=== PATIENT | male | born 1980 | race Caucasian/White ===

== ENCOUNTER 2016-11-21 06:45 | Inpatient (IN) | payer SELFPAY ==
[2016-11-21] VITALS (7 sets, daily range): BP systolic 123–152; BP diastolic 67–89; PULSE 82–112; RESP 18–20; TEMP 98.9–99.4; O2SAT 95–98
[2016-11-21] MEDS ORDERED: SODIUM CHLOR 0.9% 1000 ML INJ 1,000 ML IV SCH (07:16)
--- NOTE | 2016-11-21 07:23 | PD ---
HPI Chief Complaint: GI Complaint Time Seen by Provider: 07:07 Travel History International Travel<30 days: No Contact w/Intl Traveler<30days: No Traveled to known affect area: No History of Present Illness HPI The patient is a 36-year-old male who presents to the emergency department for nausea and vomiting. The patient notes a one and a half year history of persistent nausea and vomiting upon waking in the morning with mild dizziness. The patient states he was sitting upright and the nausea and vomiting will resolve. The patient has been advised in the past undergo endoscopy, however, he states he does not have insurance was unable to have the endoscopy performed. The patient states over the last 3-4 days of nausea and vomiting after persistent throughout the day. He does complain of mild abdominal pain, "like doing sit ups ", secondary to persistent vomiting. He denies any previous abdominal surgeries. He denies any coming chest pain, shortness of breath, or diarrhea. He does note decreased oral intake secondary to the persistent nausea and vomiting. The patient works as a salesman. He does take Nexium on a daily basis. He does admit to drinking alcohol daily, approximately 2 drinks, last drink was last night. [facility] Past Medical History Narrative Medical GERD Past Surgical History Narrative Surgical Tonsillectomy and adenoidectomy, tubes in the ears Social History Alcohol Use: Yes Tobacco Use: No Allergies-Medications (Allergen,Severity, Reaction): Coded Allergies: No Known Allergies (Unverified , 11/21/16) Review of Systems Except as stated in HPI: all other systems reviewed are Neg General / Constitutional: No: Fever Cardiovascular: No: Chest Pain or Discomfort Respiratory: No: Shortness of Breath Gastrointestinal: Positive: Nausea, Vomiting, Abdominal Pain, Loss of Appetite , No: Diarrhea Musculoskeletal: No: Myalgias Physical Exam Narrative GENERAL: Awake, alert, 36-year-old male who appears his stated age and is in no acute respiratory distress. SKIN: Focused skin assessment warm/dry. HEAD: Atraumatic. Normocephalic. EYES: Pupils equal and round. No scleral icterus. No injection or drainage. ENT: No nasal bleeding or discharge. Slightly dry mucous membranes. NECK: Trachea midline. No JVD. CARDIOVASCULAR: Regular, tachycardic with a heart rate of 110. RESPIRATORY: No accessory muscle use. Clear to auscultation. Breath sounds equal bilaterally. GASTROINTESTINAL: Abdomen soft, non-tender, nondistended. No guarding or rigidity. MUSCULOSKELETAL: No obvious deformities. No clubbing. No cyanosis. No edema. NEUROLOGICAL: Awake and alert. No obvious cranial nerve deficits. Motor grossly within normal limits. Normal speech. PSYCHIATRIC: Appropriate mood and affect; insight and judgment normal. Data Data Last Documented VS Vital Signs Date Time Temp Pulse Resp B/P (MAP) Pulse Ox O2 Delivery O2 Flow Rate FiO2 11/21/16 07:50 18 11/21/16 07:35 106 134/89 (104) 98 Room Air 11/21/16 06:47 99.0 Orders Orders Complete Blood Count With Diff (11/21/16 07:16) Comprehensive Metabolic Panel (11/21/16 07:16) Lipase (11/21/16 07:16) Lactic Acid (11/21/16 07:16) Iv Access Insert/Monitor (11/21/16 07:16) Ecg Monitoring (11/21/16 07:16) Oximetry (11/21/16 07:16) Morphine Inj (Morphine Inj) (11/21/16 07:30) Ondansetron Inj (Zofran Inj) (11/21/16 07:30) Sodium Chlor 0.9% 1000 Ml Inj (Ns 1000 M (11/21/16 07:16) Sodium Chloride 0.9% Flush (Ns Flush) (11/21/16 07:30) Electrocardiogram (11/21/16 07:16) Chest, Single Ap (11/21/16 07:16) Famotidine Inj (Pepcid Inj) (11/21/16 07:30) Troponin I (11/21/16 07:16) Sodium Chlor 0.9% 1000 Ml Inj (Ns 1000 M (11/21/16 08:45) Potassium Chlor 20 Meq Premix (Kcl 20 Me (11/21/16 08:45) Admit Order (Ed Use Only) (11/21/16 09:08) Labs Laboratory Tests Test 11/21/16 07:20 White Blood Count 6.6 TH/MM3 Red Blood Count 4.32 MIL/MM3 Hemoglobin 15.3 GM/DL Hematocrit 45.5 % Mean Corpuscular Volume 105.1 FL Mean Corpuscular Hemoglobin 35.3 PG Mean Corpuscular Hemoglobin Concent 33.6 % Red Cell Distribution Width 14.2 % Platelet Count 184 TH/MM3 Mean Platelet Volume 8.8 FL Neutrophils (%) (Auto) 60.9 % Lymphocytes (%) (Auto) 27.6 % Monocytes (%) (Auto) 9.6 % Eosinophils (%) (Auto) 1.1 % Basophils (%) (Auto) 0.8 % Neutrophils # (Auto) 4.0 TH/MM3 Lymphocytes # (Auto) 1.8 TH/MM3 Monocytes # (Auto) 0.6 TH/MM3 Eosinophils # (Auto) 0.1 TH/MM3 Basophils # (Auto) 0.1 TH/MM3 CBC Comment DIFF FINAL Differential Comment Blood Urea Nitrogen 3 MG/DL Creatinine 0.83 MG/DL Random Glucose 116 MG/DL Total Protein 7.7 GM/DL Albumin 3.8 GM/DL Calcium Level 9.4 MG/DL Alkaline Phosphatase 139 U/L Aspartate Amino Transf (AST/SGOT) 186 U/L Alanine Aminotransferase (ALT/SGPT) 86 U/L Total Bilirubin 1.3 MG/DL Sodium Level 137 MEQ/L Potassium Level 3.3 MEQ/L Chloride Level 98 MEQ/L Carbon Dioxide Level 26.0 MEQ/L Anion Gap 13 MEQ/L Estimat Glomerular Filtration Rate 104 ML/MIN Lactic Acid Level 4.9 mmol/L Troponin I LESS THAN 0.02 NG/ML Lipase 1192 U/L MDM Medical Decision Making Medical Screen Exam Complete: Yes Emergency Medical Condition: Yes Medical Record Reviewed: Yes Interpretation(s) EKG reveals normal sinus rhythm with a rate of 95. Inverted T waves noted in lead 3. Last Impressions Chest X-Ray 11/21/16 0716 Signed Impressions: Service Date/Time: Monday, November 21, 2016 07:31 - CONCLUSION: Bibasilar subsegmental atelectasis. No free air. Luis Calvo MD Laboratory Tests Test 11/21/16 07:20 White Blood Count 6.6 TH/MM3 Red Blood Count 4.32 MIL/MM3 Hemoglobin 15.3 GM/DL Hematocrit 45.5 % Mean Corpuscular Volume 105.1 FL Mean Corpuscular Hemoglobin 35.3 PG Mean Corpuscular Hemoglobin Concent 33.6 % Red Cell Distribution Width 14.2 % Platelet Count 184 TH/MM3 Mean Platelet Volume 8.8 FL Neutrophils (%) (Auto) 60.9 % Lymphocytes (%) (Auto) 27.6 % Monocytes (%) (Auto) 9.6 % Eosinophils (%) (Auto) 1.1 % Basophils (%) (Auto) 0.8 % Neutrophils # (Auto) 4.0 TH/MM3 Lymphocytes # (Auto) 1.8 TH/MM3 Monocytes # (Auto) 0.6 TH/MM3 Eosinophils # (Auto) 0.1 TH/MM3 Basophils # (Auto) 0.1 TH/MM3 CBC Comment DIFF FINAL Differential Comment Blood Urea Nitrogen 3 MG/DL Creatinine 0.83 MG/DL Random Glucose 116 MG/DL Total Protein 7.7 GM/DL Albumin 3.8 GM/DL Calcium Level 9.4 MG/DL Alkaline Phosphatase 139 U/L Aspartate Amino Transf (AST/SGOT) 186 U/L Alanine Aminotransferase (ALT/SGPT) 86 U/L Total Bilirubin 1.3 MG/DL Sodium Level 137 MEQ/L Potassium Level 3.3 MEQ/L Chloride Level 98 MEQ/L Carbon Dioxide Level 26.0 MEQ/L Anion Gap 13 MEQ/L Estimat Glomerular Filtration Rate 104 ML/MIN Lactic Acid Level 4.9 mmol/L Troponin I LESS THAN 0.02 NG/ML Lipase 1192 U/L Differential Diagnosis Differential diagnosis includes gastritis, pancreatitis, hiatal hernia, GERD, peptic ulcer disease, biliary colic, perforated viscus. Narrative Course IV was established, labs were drawn and sent, and the patient was placed on cardiac telemetry monitoring and continuous pulse oximetry monitoring. The patient was administered morphine, Zofran, Zantac, and IV fluids. Upright chest x-ray was obtained. Lipase level was sent to lab. The patient's lactic acid was elevated at 4.9. Lipase is elevated at 1192. AST is elevated more than ALT at 2-1 ratio, most likely alcoholic pancreatitis. Potassium is low at 3.3, was replaced intravenously. The patient will be admitted for acute pancreatitis for dehydration and lactic acidosis. The on-call medical service was paged for admission. Physician Communication Physician Communication The on-call medical service was paged for admission. I discussed the patient with the residents who agreed with admission. Diagnosis Primary Impression: Pancreatitis Qualified Codes: K85.20 - Alcohol induced acute pancreatitis without necrosis or infection Additional Impressions: Lactic acidosis Dehydration Admitting Information Admitting Physician Requests: Admit Condition: Stable Ash Fabian MD Nov 21, 2016 07:23
[2016-11-21] MEDS ORDERED: ONDANSETRON HCL 4 MG/2 ML VIAL IVP ONE (07:30)
[2016-11-21] MEDS ORDERED: FAMOTIDINE 20 MG/2 ML VIAL IV PUSH ONE (07:30)
[2016-11-21] MEDS ORDERED: SODIUM CHLORIDE 0.9% FLUSH 10 ML FLUSH IV FLUSH PRN ×2 (07:30→10:15)
[2016-11-21] MEDS ORDERED: MORPHINE SULFATE 4 MG/ML INJ IV PUSH ONE (07:30)
[2016-11-21 07:39] LABS: BASOPHIL # 0.1 TH/MM3 (0-0.2); BASOPHIL % 0.8 % (0.0-2.0); EOSINOPHIL # 0.1 TH/MM3 (0-0.4); EOSINOPHIL % 1.1 % (0.0-4.0); HEMATOCRIT 45.5 % (39.0-51.0); HEMO FLAGS DIFF FINAL; LYMPH % 27.6 % (9.0-44.0); LYMPHOCYTE # 1.8 TH/MM3 (1.0-4.8); MEAN CELL VOLUME 105.1 FL (80.0-100.0); MEAN CORPUSCULAR HEMOGLOBIN 35.3 PG (27.0-34.0); MEAN CORPUSCULAR HGB CONC 33.6 % (32.0-36.0); MONO % 9.6 % (0.0-8.0); NEUT % 60.9 % (16.0-70.0); PLATELET COUNT 184 TH/MM3 (150-450); RED BLOOD COUNT 4.32 MIL/MM3 (4.50-5.90); RED CELL DISTRIBUTION WIDTH 14.2 % (11.6-17.2); WHITE BLOOD COUNT 6.6 TH/MM3 (4.0-11.0)
--- NOTE | 2016-11-21 07:46 | RADRPT ---
EXAM DATE/TIME: 11/21/2016 07:31 [facility] COMPARISON: No previous studies available for comparison. INDICATIONS : Vomiting and short of breath for one year. MEDICAL HISTORY : None. SURGICAL HISTORY : None. ENCOUNTER: Initial ACUITY: 1 year PAIN SCORE: 0/10 LOCATION: Bilateral chest FINDINGS: A single view of the upright chest demonstrates the lungs to be symmetrically aerated without evidenc e of mass, infiltrate or effusion. Linear densities in the lung bases. The cardiomediastinal contours are unremarkable. Osseous structures are intact. No free air in the upper abdomen. CONCLUSION: Bibasilar subsegmental atelectasis. No free air. Luis Calvo MD on November 21, 2016 at 7:44 Board Certified Radiologist. This report was verified electronically.
[2016-11-21 08:08] LABS: ALKALINE PHOSPHATASE 139 U/L (45-117); ALT (GPT) 86 U/L (12-78); TOTAL BILIRUBIN ADULT 1.3 MG/DL (0.2-1.0)
[2016-11-21 08:15] LABS: ANION GAP 13 MEQ/L (5-15); AST (GOT) 186 U/L (15-37); BLOOD UREA NITROGEN 3 MG/DL (7-18); CHLORIDE 98 MEQ/L (98-107); GLOMERULAR FILTRATION RATE 104 ML/MIN (>89); SODIUM (NA) 137 MEQ/L (136-145)
[2016-11-21 08:27] LABS: POTASSIUM 3.3 MEQ/L (3.5-5.1)
[2016-11-21] MEDS ORDERED: SODIUM CHLOR 0.9% 1000 ML INJ 1,000 ML IV ONE (08:45)
--- NOTE | 2016-11-21 09:46 | HHI.HP ---
HPI Service Family Medicine Primary Care Physician No Primary Care Physician Admission Diagnosis alcoholic pancreatitis, lactic acidosis, elevated transaminases Diagnoses: International Travel<30 Days: No Contact w/Intl Traveler<30days: No Known Affected Area: No History of Present Illness Mr. Ibanez is a 36-year-old white male with no significant past medical history presenting to the ED for vomiting of one and a half year duration. He feels that the vomiting worsened since yesterday. He vomited 15 times today. He felt like his ribs were about to break so he decided to come to the hospital. He describes the vomitus as clear with mucus. If he vomits excessively then it turns yellowish. He sometimes vomits blood. No inciting event 1-1/2 years ago. He feels that his postnasal drip is contributing to his vomiting. He states that the nausea usually starts when he sits up in the morning. And he then vomits 1-2 times. He also wakes up frequently feeling like he is choking. However, he attributes that to his heartburn for which he takes Nexium. He has not really been eating anything. However, feels that he has not experienced any weight loss. He has associated abdominal pain that started today. He believes that this is from excessive vomiting he describes it as an 8 out of 10, nonstop pain, diffuse over his abdomen. Nothing makes it better, vomiting makes it worse. He is also experiencing achy pain in his medial bilateral thighs for vomiting. He drinks 2-3 beers every night. He has been for a couple of years. 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 He has never which drawn from alcohol. No seizures. (Ivette Gamble MD R1) Review of Systems Constitutional: COMPLAINS OF: Night Sweats, DENIES: Fever, Chills Eyes: COMPLAINS OF: Blurred vision (for a month), DENIES: Photosensitivity Ears, nose, mouth, throat: COMPLAINS OF: Vertigo (in the morning upon waking, and rolling over in the ebd), Running Nose, DENIES: Tinnitus Respiratory: COMPLAINS OF: Cough (1.5 years with the vomiting), Sputum production (clear), DENIES: Shortness of breath Cardiovascular: COMPLAINS OF: Chest pain (from vomiting and heartburn), Palpitations (from vomiting) Gastrointestinal: COMPLAINS OF: Diarrhea (3x a day for a few years, brownish color with mucous), DENIES: Black stools, Bloody stools Genitourinary: DENIES: Urinary frequency, Dysuria Musculoskeletal: COMPLAINS OF: Muscle aches (legs and abdomen) Integumentary: COMPLAINS OF: Rash (dandruff in scalp and ears, dry bumps on body) Neurologic: COMPLAINS OF: Paresthesias (in feet), Tremor (from being dehydrated ) Psychiatric: COMPLAINS OF: Depression, DENIES: Suicidal Ideation, Homicidal Ideation (depressed mood, SIGECAPS negative) (Ivette Gamble MD R1) Past Family Social History Past Medical History GERD Past Surgical History tonsillectomy- at 4 yo Reported Medications Nexium (Ivette Gamble MD R1) Allergies: Coded Allergies: No Known Allergies (Unverified , 11/21/16) Family History father- dysphonia, lung prob with phrenic nerve mother- thyroid, mental problems sister- healthy, migraines Social History lives in [place] in [facility], lives with fiance' and daughter 17yo unemployed Education: high school diploma alcohol- per HPI cigarettes- quit 10 years ago, 1 ppd for 10 years drugs- none (Ivette Gamble MD R1) Physical Exam Vital Signs Vital Signs Date Time Temp Pulse Resp B/P (MAP) Pulse Ox O2 Delivery O2 Flow Rate FiO2 11/21/16 07:50 18 11/21/16 07:35 106 20 134/89 (104) 98 Room Air 11/21/16 07:35 104 18 134/89 (104) 98 Room Air 11/21/16 06:47 99.0 112 18 134/87 (103) 96 Room Air Physical Exam GENERAL: This is a well-nourished, well-developed patient, in no apparent distress. SKIN: No rashes, ecchymoses or lesions. Cool and dry. HEAD: Atraumatic. Normocephalic. EYES: Pupils equal round and reactive. Extraocular motions intact. No scleral icterus. No injection or drainage. ENT: Bilateral TMs clear. Nose without bleeding, purulent drainage or septal hematoma. Throat without erythema, tonsillar hypertrophy or exudate. Uvula midline. Airway patent. NECK: Trachea midline. No JVD or lymphadenopathy. Supple, nontender, no meningeal signs. CARDIOVASCULAR: Regular rate and rhythm without murmurs, gallops, or rubs. RESPIRATORY: Clear to auscultation. Breath sounds equal bilaterally. No wheezes , rales, or rhonchi. GASTROINTESTINAL: Abdomen soft, tender diffusely, distended. No hepato- splenomegaly, or palpable masses. No guarding. MUSCULOSKELETAL: Extremities without clubbing, cyanosis, or edema. No joint tenderness, effusion, or edema noted. No calf tenderness. Negative Homans sign bilaterally. NEUROLOGICAL: Awake and alert. Motor and sensory grossly within normal limits. Normal speech. Laboratory Laboratory Tests Test 11/21/16 07:20 White Blood Count 6.6 Red Blood Count 4.32 Hemoglobin 15.3 Hematocrit 45.5 Mean Corpuscular Volume 105.1 Mean Corpuscular Hemoglobin 35.3 Mean Corpuscular Hemoglobin Concent 33.6 Red Cell Distribution Width 14.2 Platelet Count 184 Mean Platelet Volume 8.8 Neutrophils (%) (Auto) 60.9 Lymphocytes (%) (Auto) 27.6 Monocytes (%) (Auto) 9.6 Eosinophils (%) (Auto) 1.1 Basophils (%) (Auto) 0.8 Neutrophils # (Auto) 4.0 Lymphocytes # (Auto) 1.8 Monocytes # (Auto) 0.6 Eosinophils # (Auto) 0.1 Basophils # (Auto) 0.1 CBC Comment DIFF FINAL Differential Comment Blood Urea Nitrogen 3 Creatinine 0.83 Random Glucose 116 Total Protein 7.7 Albumin 3.8 Calcium Level 9.4 Alkaline Phosphatase 139 Aspartate Amino Transf (AST/SGOT) 186 Alanine Aminotransferase (ALT/SGPT) 86 Total Bilirubin 1.3 Sodium Level 137 Potassium Level 3.3 Chloride Level 98 Carbon Dioxide Level 26.0 Anion Gap 13 Estimat Glomerular Filtration Rate 104 Lactic Acid Level 4.9 Troponin I LESS THAN 0.02 Lipase 1192 (Ivette Gamble MD R1) Result Diagram: 11/21/1671911/21/16719 Caprini VTE Risk Assessment Caprini VTE Risk Assessment: No/Low Risk (score <= 1) Caprini Risk Assessment Model Point Value = 1 Point Value = 2 Point Value = 3 Point Value = 5 Age 41-60 Minor surgery BMI > 25 kg/m2 Swollen legs Varicose veins or History of unexplained or recurrent spontaneous Oral contraceptives or hormone replacement Sepsis (< 1 month) Serious lung disease, including pneumonia (< 1 month) Abnormal pulmonary function Acute myocardial infarction Congestive heart failure (< 1 month) History of inflammatory bowel disease Medical patient at bed rest Age 61-74 Arthroscopic surgery Major open surgery (> 45 min) Laparoscopic surgery (> 45 min) Malignancy Confined to bed (> 72 hours) Immobilizing plaster cast Central venous access Age >= 75 History of VTE Family history of VTE Factor V Leiden Prothrombin [id number] Lupus anticoagulant Anticardiolipin antibodies Elevated serum homocysteine Heparin-induced thrombocytopenia Other congenital or acquired thrombophilia Stroke (< 1 month) Elective arthroplasty Hip, pelvis, or leg fracture Acute spinal cord injury (< 1 month) Prophylaxis Regimen Total Risk Factor Score Risk Level Prophylaxis Regimen 0-1 Low Early ambulation 2 Moderate Order ONE of the following: *Sequential Compression Device (SCD) *Heparin 5000 units SQ BID 3-4 Higher Order ONE of the following medications: *Heparin 5000 units SQ TID *Enoxaparin/Lovenox 40 mg SQ daily (WT < 150 kg, CrCl > 30 mL/min) *Enoxaparin/Lovenox 30 mg SQ daily (WT < 150 kg, CrCl > 10-29 mL/min) *Enoxaparin/Lovenox 30 mg SQ BID (WT < 150 kg, CrCl > 30 mL/min) AND/OR *Sequential Compression Device (SCD) 5 or more Highest Order ONE of the following medications: *Heparin 5000 units SQ TID (Preferred with Epidurals) *Enoxaparin/Lovenox 40 mg SQ daily (WT < 150 kg, CrCl > 30 mL/min) *Enoxaparin/Lovenox 30 mg SQ daily (WT < 150 kg, CrCl > 10-29 mL/min) *Enoxaparin/Lovenox 30 mg SQ BID (WT < 150 kg, CrCl > 30 mL/min) AND *Sequential Compression Device (SCD) (Ivette Gamble MD R1) Assessment and Plan Assessment and Plan Mr. Ibanez is a 36-year-old white male with no significant past medical history presenting to the ED with vomiting of 1.5 years duration. Labs show that his lipase is significantly elevated. He is being admitted for pancreatitis. Code Status Full code Discussed Condition With Dr. Best and Dr. Rangel (Ivette Gamble MD R1) Attending Attestation The patient has been seen and examined. The chart and all resident notes have been reviewed. I agree that inpatient care is appropriate and that a two midnight stay is expected for the reasons documented in the resident history and physical. I have discussed this with the resident and certify the resident s order for inpatient admission. Patient seen and examined. Case reviewed and discussed Please refer to resident H&P for further details regarding HPI, ROS, PMH, SurgHx , FH and SocHx In summary, patient is a 36yoM with a history of chronic alcohol use presenting with 1 year of abdominal pain, worse over the past several days He also notes assoc nausea, vomiting, diarrhea. He is seen in the ED. Feeling better after IVF GENERAL: wdwn male, sitting up in bed SKIN: Warm and dry. No rashes HEAD: Normocephalic. AT EYES: No scleral icterus. No injection or drainage. ENT: OP clear MM slightly dry NECK: Supple, trachea midline. No JVD or lymphadenopathy. CARDIOVASCULAR: Regular rate and rhythm without murmurs, gallops, or rubs. RESPIRATORY: Breath sounds equal bilaterally. No accessory muscle use. GASTROINTESTINAL: Abdomen soft, mild diffuse tenderness. NO rebound, mild distention MUSCULOSKELETAL: No cyanosis, or edema. No calf tenderness BACK: Nontender without obvious deformity. No CVA tenderness. NEURO: Awake and alert. Normal speech. CN grossly intact A/P: 36yoM with: Abdominal pain Pancreatitis Alcohol dependence Lactic acidosis Dehydration IVF Trend lactic acidosis Abd u/s GI consultation CIWA protocol CMP Protonix Patient seen and examined. Case reviewed and discussed Agree with plan of care as discussed with me and documented in the resident note (Thais Rangel MD) Problem List: (1) Pancreatitis ICD Codes: K85.90 - Acute pancreatitis without necrosis or infection, unspecified Status: Acute Plan: Patient presented with nausea/vomiting and abdominal pain. Lipase is increased to 1192. May be due to patient's frequent alcohol use. Abdominal ultrasound on 11/21 shows prominence of the common bile duct without gallstones identified. Spoke to Dr. Plata over the phone, he suggested that a MRCP because of the dilation of the duct and elevated alkaline phosphatase. -IV fluid Lactated Ringer' at 250 mL/hr -Diet clear liquids, advance as tolerated -IV Protonix -Trend lipase -MRCP ordered (2) Alcohol use ICD Codes: Z78.9 - Other specified health status Status: Acute Plan: Patient admits to drinking alcohol nightly. CBC shows macrocytosis. AST is elevated greater than ALT on hepatic function panel. -CIWA protocol -Rally pack (3) Dehydration ICD Codes: E86.0 - Dehydration Status: Acute Plan: Patient unable to keep down food or drink for several days. Presented with tachycardia. -IV fluid hydration (4) Lactic acidosis ICD Codes: E87.2 - Acidosis Status: Resolved Plan: Patient presented with lactic acid of 4.9. Trended down to normal with IV fluids. (5) FEN Status: Acute Plan: Fluids: Lactated Ringer's at 250 ML's per hour Electrolytes: Monitor and replete as needed Nutrition: Clear liquid diet, advance as tolerated Pain management: Toradol as needed DVT prophylaxis: Heparin 5000 units every 12 hours (Ivette Gamble MD R1) Physician Certification 2 Midnight Certification Type: Admission for Inpatient Services Order for Inpatient Services The services are ordered in accordance with Medicare regulations or non- Medicare payer requirements, as applicable. In the case of services not specified as inpatient-only, they are appropriately provided as inpatient services in accordance with the 2-midnight benchmark. Estimated LOS (days): 3 days is the estimated time the patient will need to remain in the hospital, assuming treatment plan goals are met and no additional complications. Post-Hospital Plan: Home (Ivette Gamble MD R1) Problem Qualifiers (1) Pancreatitis: Qualified Codes: K85.20 - Alcohol induced acute pancreatitis without necrosis or infection Ivette Gamble MD R1 Nov 21, 2016 09:46 Thais Rangel MD Nov 22, 2016 00:10
[2016-11-21] MEDS: POTASSIUM CHLOR 20 MEQ PREMIX 100 ML IV SCH ×2 (09:50→11:50)
[2016-11-21] MEDS ORDERED: LORazepam 1 MG TAB PO PRN (10:15)
[2016-11-21] MEDS ORDERED: LORazepam 2 MG/ML VIAL IV PUSH PRN ×4 (10:15)
[2016-11-21] MEDS ORDERED: FLUMAZENIL 0.5 MG/5 ML VIAL IV PUSH PRN (10:15)
[2016-11-21 10:30] LABS: BLOOD, URINE NEG (NEG); COMMENT (UR) CULT NOT INDICATED; CULTURE IF INDICATED CULT NOT INDICATED; GLUCOSE,URINE NEG (NEG); HYALINE CAST, URINE 20 /lpf (RARE); KETONE, URINE TRACE mg/dL (NEG); MUCUS URINE FEW /lpf (OCC); NITRITE,URINE NEG (NEG); PH, URINE 5.5 (5.0-8.5); URINE COLOR YELLOW (YELLW/STRAW)
[2016-11-21] MEDS: PANTOPRAZOLE SODIUM 40 MG VIAL IV PUSH SCH (11:50)
[2016-11-21] MEDS: LACTATED RINGER'S 1000 ML INJ 1,000 ML IV SCH ×4 (11:50→22:05)
[2016-11-21] MEDS: HEPARIN SODIUM - SQ 10,000 UNITS/ML VIAL SQ SCH ×2 (11:51→22:55)
[2016-11-21 12:27] LABS: ALKALINE PHOSPHATASE 111 U/L (45-117); ALT (GPT) 70 U/L (12-78); ANION GAP 8 MEQ/L (5-15); AST (GOT) 144 U/L (15-37); BICARBONATE 27.6 MEQ/L (21.0-32.0); BLOOD UREA NITROGEN 3 MG/DL (7-18); CHLORIDE 104 MEQ/L (98-107); GLOMERULAR FILTRATION RATE 133 ML/MIN (>89); SODIUM (NA) 140 MEQ/L (136-145); TOTAL BILIRUBIN ADULT 1.1 MG/DL (0.2-1.0)
--- NOTE | 2016-11-21 13:17 | RADRPT ---
EXAM DATE/TIME: 11/21/2016 10:29 [facility] COMPARISON: No previous studies available for comparison. INDICATIONS : Abdominal pain. Nausea and vomiting. MEDICAL HISTORY : Gastroesophageal reflux disease. SURGICAL HISTORY : Tonsillectomy. ENCOUNTER: Initial ACUITY: > 1 year PAIN SCORE: 1/10 LOCATION: Bilateral upper quadrant MEASUREMENTS: LIVER: 22.2 cm length COMMON DUCT: 7 mm RIGHT KIDNEY: 11.5 x 5.6 x 5.5 cm LEFT KIDNEY: 12.9 x 6.7 x 5.6 cm SPLEEN: 12.5 cm length AORTA: 3.0cm maximal FINDINGS: LIVER: Echogenic liver without ductal dilatation. COMMON DUCT: No intraluminal mass or stone visualized. GALLBLADDER: Contains no stones, demonstrates no wall thickening or pericholecystic fluid. PANCREAS: The visualized portions are within normal limits. RIGHT KIDNEY: No hydronephrosis, stone or mass. LEFT KIDNEY: No hydronephrosis, stone or mass. SPLEEN: No focal lesion. AORTA: Non aneurysmal. IVC: Within normal limits. CONCLUSION: Mild prominence to the common duct without gallstones identified. Echogenic liver. Henry Plata MD FACR on November 21, 2016 at 13:14 Board Certified Radiologist. This report was verified electronically.
[2016-11-21 13:41] LABS: LACTIC ACID GHOST NOT REPORTABLE
--- NOTE | 2016-11-21 14:25 | EKG ---
Date Performed: 11/21/2016 Time Performed: 08:01:33 PTAGE: 36 years EKG: Sinus rhythm NONSPECIFIC T-WAVE ABNORMALITY BORDERLINE ECG NO PREVIOUS TRACING DOCTOR: Jone Kim Interpretating Date/Time 11/21/2016 14:24:23
[2016-11-21] MEDS: KETOROLAC TROMETHAMINE 30 MG/ML (IVP) VIAL IVP PRN (16:07)
[2016-11-21] MEDS: ONDANSETRON HCL 4 MG/2 ML VIAL IV PRN ×2 (16:07→22:54)
[2016-11-21] MEDS: SODIUM CHLORIDE 0.9% FLUSH 10 ML FLUSH IV FLUSH SCH (20:41)
[2016-11-21] MEDS: LORazepam 2 MG TAB PO PRN (20:41)
[2016-11-21] MEDS: MORPHINE SULFATE 4 MG/ML INJ IV PUSH PRN (22:56)
--- NOTE | 2016-11-21 23:09 | RADRPT ---
EXAM DATE/TIME: 11/21/2016 21:51 [place] COMPARISON: No previous studies available for comparison. INDICATIONS : Pancreatitis. MEDICAL HISTORY : None. SURGICAL HISTORY : Tonsillectomy. Adenoidectomy. ENCOUNTER: Subsequent ACUITY: 1 day PAIN SCORE: 5/10 LOCATION: Abdomen. TECHNIQUE: Multiplanar, multisequence magnetic resonance imaging of the abdomen was performed. High-resolution 3D dataset was utilized to reconstruct maximum-intensity projection (MIP) images. FINDINGS: INTRAHEPATIC BILE DUCTS: Within normal limits. No significant anatomical variant is present. EXTRAHEPATIC BILE DUCTS: The common bile duct measures 3 mm. No stone or filling defect is identified. GALLBLADDER: No stones, wall thickening, or pericholecystic fluid. LIVER: The liver is enlarged measuring 22.7 cm. There is severe diffuse signal loss on [id number] imaging indicating steatosis. No focal lesion is identified. PANCREAS: The main pancreatic duct is normal in size. There is no significant anatomical variant. Signal inte nsity is within normal limits. No mass is visualized on this non-contrast exam. OTHER: There is a small hiatal hernia. Otherwise, the remaining visualized structures demonstrate no acute a bnormality on this non-contrast exam. CONCLUSION: 1. There are no imaging findings to indicate acute pancreatitis. The intra-and extrahepatic bile duct s are within normal limits. 2. Hepatomegaly with severe steatosis. Luis Calvo MD on November 21, 2016 at 23:02 Board Certified Radiologist. This report was verified electronically.
[2016-11-22] VITALS (9 sets, daily range): BP systolic 122–158; BP diastolic 70–92; PULSE 81–115; RESP 18–20; TEMP 98.2–99.6; O2SAT 95–99
[2016-11-22] MEDS: LORazepam 2 MG TAB PO PRN ×2 (00:11→05:24)
[2016-11-22] MEDS: LACTATED RINGER'S 1000 ML INJ 1,000 ML IV SCH ×6 (02:05→22:05)
[2016-11-22] MEDS: KETOROLAC TROMETHAMINE 30 MG/ML (IVP) VIAL IVP PRN ×3 (05:24→22:13)
[2016-11-22] MEDS: ONDANSETRON HCL 4 MG/2 ML VIAL IV PRN ×2 (05:24→22:12)
[2016-11-22] MEDS: MORPHINE SULFATE 4 MG/ML INJ IV PUSH PRN ×3 (06:27→23:39)
[2016-11-22] MEDS: THIAMINE HCL 100 MG TAB PO SCH (08:10)
[2016-11-22] MEDS: FOLIC ACID 1 MG TAB PO SCH (08:11)
[2016-11-22] MEDS: MULTIVITAMINS/MINERALS THERAPEUTIC TAB PO SCH (08:11)
[2016-11-22] MEDS: SODIUM CHLORIDE 0.9% FLUSH 10 ML FLUSH IV FLUSH SCH ×2 (08:11→21:00)
[2016-11-22 10:51] LABS: AUTOMATED NEUTROPHIL # 3.5 TH/MM3 (1.8-7.7); BASOPHIL % 0.5 % (0.0-2.0); EOSINOPHIL # 0.1 TH/MM3 (0-0.4); EOSINOPHIL % 1.2 % (0.0-4.0); HEMATOCRIT 36.7 % (39.0-51.0); HEMO FLAGS DIFF FINAL; LYMPH % 21.2 % (9.0-44.0); LYMPHOCYTE # 1.1 TH/MM3 (1.0-4.8); MEAN CELL VOLUME 104.6 FL (80.0-100.0); MEAN CORPUSCULAR HEMOGLOBIN 36.6 PG (27.0-34.0); MONO % 10.1 % (0.0-8.0); PLATELET COUNT 130 TH/MM3 (150-450); RED BLOOD COUNT 3.51 MIL/MM3 (4.50-5.90); RED CELL DISTRIBUTION WIDTH 14.2 % (11.6-17.2); WHITE BLOOD COUNT 5.2 TH/MM3 (4.0-11.0)
[2016-11-22] MEDS: HEPARIN SODIUM - SQ 10,000 UNITS/ML VIAL SQ SCH ×2 (11:00→22:15)
[2016-11-22 11:14] LABS: ANION GAP 10 MEQ/L (5-15); AST (GOT) 118 U/L (15-37); BICARBONATE 28.3 MEQ/L (21.0-32.0); BLOOD UREA NITROGEN 2 MG/DL (7-18); CHLORIDE 102 MEQ/L (98-107); GLOMERULAR FILTRATION RATE 141 ML/MIN (>89); POTASSIUM 3.3 MEQ/L (3.5-5.1); SODIUM (NA) 140 MEQ/L (136-145)
[2016-11-22 11:27] LABS: ALKALINE PHOSPHATASE 104 U/L (45-117); ALT (GPT) 62 U/L (12-78); TOTAL BILIRUBIN ADULT 1.7 MG/DL (0.2-1.0)
--- NOTE | 2016-11-22 12:17 | HHI.FPPN ---
Subjective Remarks No acute events overnight. Patient afebrile overnight. Had tachycardia earlier that has resolved. Has continuing vomiting and diarrhea, and mild diffuse crampy abdominal pain without much localization. No chest pain or shortness of breath. No calf tenderness. Has appetite but not tolerating food as he vomits after eating. (Greg Glover MD R3) Objective Vitals Vital Signs Date Time Temp Pulse Resp B/P (MAP) Pulse Ox O2 Delivery O2 Flow Rate FiO2 11/22/16 11:29 96 11/22/16 08:42 98.5 84 20 129/83 (98) 95 11/22/16 06:42 18 11/22/16 06:42 18 11/22/16 06:04 99.0 110 20 131/90 (104) 97 11/22/16 01:11 99.1 81 20 158/70 (99) 99 11/21/16 20:47 99.4 82 20 129/83 (98) 95 11/21/16 16:38 98.9 98 20 125/79 (94) 95 11/21/16 14:11 98 11/21/16 12:30 100 20 152/78 (102) 98 I/O 11/21/16 11/21/16 11/21/16 11/22/16 11/22/16 11/22/16 07:00 15:00 23:00 07:00 15:00 23:00 Intake Total 2000 ml 1100 ml 2240 ml Balance 2000 ml 1100 ml 2240 ml Intake Oral 240 ml IV Total 2000 ml 1100 ml 2000 ml # Voids 1 3 # Bowel Movements 1 (Greg Glover MD R3) Result Diagram: 11/22/16 1026 11/22/16 1026 Imaging Last 72 hours Impressions Chest X-Ray 11/21/16 0716 Signed Impressions: Service Date/Time: Monday, November 21, 2016 07:31 - CONCLUSION: Bibasilar subsegmental atelectasis. No free air. Luis Calvo MD Cholangiopancreatography MRI 11/21/16 0000 Signed Impressions: Service Date/Time: Monday, November 21, 2016 21:51 - CONCLUSION: 1. There are no imaging findings to indicate acute pancreatitis. The intra-and extrahepatic bile ducts are within normal limits. 2. Hepatomegaly with severe steatosis. Luis Calvo MD Abdomen Ultrasound 11/21/16 0000 Signed Impressions: Service Date/Time: Monday, November 21, 2016 10:29 - CONCLUSION: Mild prominence to the common duct without gallstones identified. Echogenic liver. Henry Plata MD FACR Objective Remarks GENERAL: Sitting up in bed, no distress, no obvious pain SKIN: No rashes or lesions HEAD: Normocephalic EYES: No injection or scleral icterus ENT: Normal nasal mucosa, moist oral mucosa, normal pharynx without exudates NECK: No lymphadenopathy CARDIOVASCULAR: Regular rate and rhythm without murmurs, gallops, or rubs. Regular pulses. RESPIRATORY: Clear to auscultation. Breath sounds equal bilaterally. No wheezes , rales, or rhonchi. GASTROINTESTINAL: Abdomen soft, mildly tender diffusely, mild distension. Can feel liver edge a few cm's below costal margin. No RUQ tenderness, but does have tenderness when epigastric region pressed firmly. No rigidity or guarding, no rebound tenderness. MUSCULOSKELETAL: Extremities without clubbing, cyanosis, or edema. NEUROLOGICAL: Awake and alert. (Greg Glover MD R3) A/P Assessment and Plan 36-year-old white male with no significant past medical history presenting to the ED with vomiting of 1.5 years duration. Labs show that his lipase is significantly elevated. He has a history of significant alcohol abuse and also has a dilated common bile duct suggesting that he may have recently passed a gallstone. He is being admitted for management of pancreatitis. Discharge Planning Pending clinically stable and able to tolerate a diet without significant nausea or vomiting. May require cholecystectomy and/or ERCP depending on results of MRCP. (Greg Glover MD R3) Attending Attestation Patient seen and examined. Case reviewed and discussed with the resident team Agree with plan of care as discussed with me and documented in the resident note. (Thais Rangel MD) Problem List: (1) Pancreatitis ICD Codes: K85.90 - Acute pancreatitis without necrosis or infection, unspecified Status: Acute Plan: Patient presented with nausea/vomiting and abdominal pain. Lipase increased to 1192, trended down to 865 today. Differential includes acute versus chronic pancreatitis. May be due to patient's frequent alcohol use. CBD also somewhat increased in diameter suggesting a possible recently passed gallstone. Had slightly elevated alkaline phosphatase. AST elevated, ALT normal , likely alcohol induced liver injury and steatosis. Still having significant nausea/vomiting and diarrhea after eating. MRCP shows normal intra- and extra- hepatic bile ducts. He has hepatomegaly with severe steatosis. - IV fluid Lactated Ringer's at 250 mL/hr - NPO due to intolerance of foods currently with continued nausea and vomiting, advance as tolerated - Pain management: Toradol 30 mg q6hrs PRN for pain 1-10, Morphine sulfate 4 mg for breakthrough pain (2) Chronic vomiting ICD Codes: R11.10 - Vomiting, unspecified Status: Chronic Plan: Chronic vomiting along with a chronic cough and GERD-liek symptoms that has been going on for the last 1.5 years. - Consult GI for assistance to investigate causes of chronic vomiting and reflux symptoms, may require EGD. - Continue pantoprazole 40 mg daily (3) Alcohol use ICD Codes: Z78.9 - Other specified health status Status: Acute Plan: Patient admits to drinking alcohol nightly. -CIWA protocol, Ativan PRN -Multivitamin, thiamine, folic acid (4) FEN Status: Acute Plan: Fluids: Lactated Ringer's at 250 ML's per hour Electrolytes: Monitor and replace as needed, currently with hypokalemia that is replaced today Nutrition: NPO due to vomiting, advance as tolerated DVT prophylaxis: Heparin 5000 units every 12 hours (Greg Glover MD R3) Problem Qualifiers (1) Pancreatitis: Qualified Codes: K85.20 - Alcohol induced acute pancreatitis without necrosis or infection Greg Glover MD R3 Nov 22, 2016 12:17 Thais Rangel MD Nov 22, 2016 15:12
[2016-11-22 12:28] LABS: HEMOGLOBIN A1a 1.2 %; HEMOGLOBIN A1b 1.2 %; HEMOGLOBIN Ao 86.7 %; HEMOGLOBIN F 0.4 %; HEMOGLOBIN LA1C 1.8 %; HEMOGLOBIN P3 3.1 %
[2016-11-22] MEDS ORDERED: POTASSIUM CHLORIDE 10 MEQ CONTROLLED RELEASE TAB PO ONE ×2 (12:30→14:00)
[2016-11-22] MEDS ORDERED: FLUTICASONE PROPIONATE 50 MCG/ACT 16 GM NASAL SPRAY EACH NARE SCH (12:30)
[2016-11-22] MEDS: PANTOPRAZOLE SODIUM 40 MG VIAL IV PUSH SCH (12:43)
--- NOTE | 2016-11-22 17:14 | PD.CONS ---
HPI History of Present Illness This is a 36 year old male w/ hx GERD on nexium who presented to ER w/ complaint of n/v for the last year and a half, and diarrhea for the last 5 years. he can identify no precipating even or change a year and a half ago. He vomits every morning on waking and occasional in afternoon as well. The last 4-5 months the vomiting has been more frequent, and great increase in frequency in the last week. in the last 3 weeks he has had 2-3 episodes of blood in vomit, he did show me a picture on his cell phone of dark red bloody emesis. He has had loos stool 2-3 x daily for the last 5 years and intermittent scant red blood on wipe. Admits abd swelling in the last few weeks. Has GERD takes nexium, says this controlls his reflux well. No black stool, fever, abd pain, or weight loss. never had EGD or colonoscopy. Has 3-4 drinks daily. (Lizy Raza) PFSH Past Medical History GERD consistent moderate ETOH consumption Past Surgical History none (Lizy Raza) Coded Allergies: No Known Allergies (Unverified , 11/21/16) Family History none Social History 3-4 drinks daily quit smoking 10y ago no illicit drug use (Lizy Raza) Review of Systems Constitutional: DENIES: Fever Ears, nose, mouth, throat: DENIES: Throat pain Respiratory: DENIES: Hemoptysis Cardiovascular: DENIES: Chest pain Gastrointestinal: COMPLAINS OF: Diarrhea, Nausea, Vomiting, Swelling of Abdomen , Hematemesis, DENIES: Abdominal pain, Black stools, Bloody stools, Constipation Genitourinary: DENIES: Hematuria Musculoskeletal: DENIES: Joint Swelling Integumentary: DENIES: Jaundice Neurologic: DENIES: Abnormal gait Psychiatric: DENIES: Confusion (Lizy Raza) GI Exam Vitals I&O Vital Signs Date Time Temp Pulse Resp B/P (MAP) Pulse Ox O2 Delivery O2 Flow Rate FiO2 11/22/16 16:41 98.2 107 20 135/88 (104) 96 11/22/16 12:39 99.0 85 20 134/82 (99) 96 11/22/16 11:29 96 11/22/16 08:42 98.5 84 20 129/83 (98) 95 11/22/16 06:42 18 11/22/16 06:42 18 11/22/16 06:04 99.0 110 20 131/90 (104) 97 11/22/16 01:11 99.1 81 20 158/70 (99) 99 11/21/16 20:47 99.4 82 20 129/83 (98) 95 I/O 11/21/16 11/21/16 11/21/16 11/22/16 11/22/16 11/22/16 07:00 15:00 23:00 07:00 15:00 23:00 Intake Total 2000 ml 1100 ml 2240 ml Output Total 900 ml Balance 2000 ml 1100 ml 2240 ml -900 ml Intake Oral 240 ml IV Total 2000 ml 1100 ml 2000 ml Output Urine Total 900 ml # Voids 1 3 # Bowel Movements 1 2 Imaging Last Impressions Chest X-Ray 11/21/16 0716 Signed Impressions: Service Date/Time: Monday, November 21, 2016 07:31 - CONCLUSION: Bibasilar subsegmental atelectasis. No free air. Luis Calvo MD Cholangiopancreatography MRI 11/21/16 0000 Signed Impressions: Service Date/Time: Monday, November 21, 2016 21:51 - CONCLUSION: 1. There are no imaging findings to indicate acute pancreatitis. The intra-and extrahepatic bile ducts are within normal limits. 2. Hepatomegaly with severe steatosis. Luis Calvo MD Abdomen Ultrasound 11/21/16 0000 Signed Impressions: Service Date/Time: Monday, November 21, 2016 10:29 - CONCLUSION: Mild prominence to the common duct without gallstones identified. Echogenic liver. Henry Plata MD FACR Laboratory Test 11/22/16 10:26 White Blood Count 5.2 TH/MM3 Red Blood Count 3.51 MIL/MM3 Hemoglobin 12.8 GM/DL Hematocrit 36.7 % Mean Corpuscular Volume 104.6 FL Mean Corpuscular Hemoglobin 36.6 PG Mean Corpuscular Hemoglobin Concent 35.0 % Red Cell Distribution Width 14.2 % Platelet Count 130 TH/MM3 Mean Platelet Volume 9.2 FL Neutrophils (%) (Auto) 67.0 % Lymphocytes (%) (Auto) 21.2 % Monocytes (%) (Auto) 10.1 % Eosinophils (%) (Auto) 1.2 % Basophils (%) (Auto) 0.5 % Neutrophils # (Auto) 3.5 TH/MM3 Lymphocytes # (Auto) 1.1 TH/MM3 Monocytes # (Auto) 0.5 TH/MM3 Eosinophils # (Auto) 0.1 TH/MM3 Basophils # (Auto) 0.0 TH/MM3 CBC Comment DIFF FINAL Differential Comment Blood Urea Nitrogen 2 MG/DL Creatinine 0.64 MG/DL Random Glucose 93 MG/DL Total Protein 6.1 GM/DL Albumin 3.1 GM/DL Calcium Level 8.8 MG/DL Alkaline Phosphatase 104 U/L Aspartate Amino Transf (AST/SGOT) 118 U/L Alanine Aminotransferase (ALT/SGPT) 62 U/L Total Bilirubin 1.7 MG/DL Sodium Level 140 MEQ/L Potassium Level 3.3 MEQ/L Chloride Level 102 MEQ/L Carbon Dioxide Level 28.3 MEQ/L Anion Gap 10 MEQ/L Estimat Glomerular Filtration Rate 141 ML/MIN Hemoglobin A1c 5.2 % Lipase 865 U/L Physical Examination HEENT: PERRL; normocephalic; atraumatic; no jaundice. CHEST: CTA CARDIAC: RRR ABDOMEN: Soft, nondistended, nontender; no hepatosplenomegaly; bowel sounds are present in all four quadrants. EXTREMITIES: No clubbing, cyanosis, or edema. SKIN: Normal; no rash; no jaundice. CHEMICAL PRODUCTION ENGINEER: No focal deficits; alert and oriented times three. (Lizy Raza RELEASE OF INFORMATION SPECIALIST) Assessment and Plan Plan ASSESSMENT - n/v - for last year and a half, recent episodes hematemesis. unclear etiology. hx GERD. worsening. - elevated lipase- 1192 on admission, could be d/t vomiting. no abd pain. abd US showed mild prominence CBD no stones and subsequent MRCP 11-21 --> no indication pancreatitis, intra and extra hepatic ducts WNL, hepatomegaly w/ severe steatosis - diarrhea - unclear etiology, last 5 years. no blood. - elevated LFT - Tbil 1.3, AST 186, ALT 86, ALP 139 on admission, trending down. MRCP shows fatty liver. could be 2/2 ETOH, will do w/u to r/o other cause - Anemia - hgb 15.3 on admission and today 12.8 macrocytic hyperchromic b12 1019 PLAN - EGD/colonoscopy - obtain consent - clears - NPO after midnight - Mg Citrate prep - liver w/u - monitor LFTs - monitor lipase - ETOH cessation - further recs to follow based on results above This pt seen by myself and Dr Lockwood and this note is written on his behalf (Lizy Raza) Physician Comments Agree with the plan as above, for EGD/Colonoscopy in AM. Further recommendations to follow. (Cristina Lockwood MD) Lizy Raza Nov 22, 2016 17:14 Cristina Lockwood MD Nov 22, 2016 21:47
[2016-11-22] MEDS ORDERED: MAGNESIUM CITRATE SOLN 300 ML BTL PO ONE ×2 (17:30→19:30)
[2016-11-23] MEDS: MORPHINE SULFATE 4 MG/ML INJ IV PUSH PRN ×3 (03:43→13:01)
[2016-11-23 03:45] VITALS: BP 136/66; PULSE 93; RESP 18; TEMP 98.8; O2SAT 98
[2016-11-23] MEDS: LACTATED RINGER'S 1000 ML INJ 1,000 ML IV SCH (03:49)
[2016-11-23] MEDS: ONDANSETRON HCL 4 MG/2 ML VIAL IV PRN (03:55)
[2016-11-23] MEDS ORDERED: SODIUM CHLORID 0.9% 500 ML IV PRN (06:30)
[2016-11-23] MEDS ORDERED: LACTATED RINGER'S 1000 ML IV PRN (06:30)
[2016-11-23] MEDS ORDERED: POVIDONE IODINE 5% (ANTISEPSIS KIT) 4 APPLICATIONS EACH NARE PRN (06:30)
[2016-11-23] MEDS ORDERED: METOPROLOL TARTRATE 25 MG TAB PO PRN (06:30)
[2016-11-23] MEDS ORDERED: INSULIN HUMAN REGULAR 1,000 UNITS/10 ML VIAL SQ PRN (06:30)
[2016-11-23] MEDS ORDERED: CHLORHEXIDINE GLUCONATE 2 % 1 PACK (2 CLOTHS) TOPICAL PRN (06:30)
[2016-11-23 06:51] LABS: ANION GAP 8 MEQ/L (5-15); AST (GOT) 144 U/L (15-37); BICARBONATE 30.3 MEQ/L (21.0-32.0); BLOOD UREA NITROGEN 4 MG/DL (7-18); CHLORIDE 99 MEQ/L (98-107); GLOMERULAR FILTRATION RATE 133 ML/MIN (>89); POTASSIUM 3.5 MEQ/L (3.5-5.1); SODIUM (NA) 137 MEQ/L (136-145)
[2016-11-23 06:53] LABS: ALT (GPT) 78 U/L (12-78)
[2016-11-23 06:54] LABS: ALKALINE PHOSPHATASE 121 U/L (45-117); TOTAL BILIRUBIN ADULT 2.1 MG/DL (0.2-1.0)
[2016-11-23 07:06] LABS: HEMATOCRIT 38.6 % (39.0-51.0); MEAN CELL VOLUME 106.7 FL (80.0-100.0); MEAN CORPUSCULAR HEMOGLOBIN 36.8 PG (27.0-34.0); MEAN CORPUSCULAR HGB CONC 34.5 % (32.0-36.0); PLATELET COUNT 135 TH/MM3 (150-450); RED BLOOD COUNT 3.61 MIL/MM3 (4.50-5.90); REVIEW FLAG FINAL
[2016-11-23 08:00] VITALS: BP 120/75; PULSE 106; RESP 16; TEMP 99.4; O2SAT 95
[2016-11-23] MEDS ORDERED: PROPOFOL 200 MG/20 ML AMP IV ONE (09:38)
--- NOTE | 2016-11-23 09:48 | GIPROC ---
[facility] [address] [facility]. [facility], [address] EGD PROCEDURE REPORT EXAM DATE: 11/23/2016 PATIENT NAME: Yovany Ibanez MR #: [id number] BIRTHDATE: 1980 ATTENDING: Cristina Lockwood MD ORDER #: [id number] JUMPBASTING COLLAR BASTER: Jerome Flowers and Sindi Butler STATUS: inpatient INDICATIONS: The patient is a 36 yr old male here for an EGD due to vomiting and nausea PROCEDURE PERFORMED: EGD w/ biopsy MEDICATIONS: None and Per Anesthesia. TOPICAL ANESTHETIC: none CONSENT: The patient understands the risks and benefits of the procedure and understands that these risks include, but are not limited to: sedation, allergic reaction, infection, perforation and/or bleeding. Alternative means of evaluation and treatment include, among others: physical exam, x-rays, and/or surgical intervention. The patient elects to proceed with this endoscopic procedure. medical equipment was checked for proper function. Hand hygiene and appropriate measures for infection prevention was taken. After the risks, benefits and alternatives of the procedure were thoroughly explained, Informed consent was verified, confirmed and timeout was successfully executed by the treatment team. The patient was anesthetized with topical anesthesia and the EC-[id number] (Pedi C) endoscope was introduced through the mouth and advanced to the second portion of the duodenum. Retroflexion was performed and was normal The gastroscope was then slowly withdrawn and removed. 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 The length of circumferential Howe's was 4cm (Manilla C4). Multiple biopsies were performed using cold forceps. Sample sent for histology. Sample obtained to rule out Howe's esophagus. STOMACH: There was chronic moderate gastritis in the entire examined stomach. Multiple biopsies were performed using cold forceps. Sample sent for histology. DUODENUM: The duodenal mucosa appeared normal in the bulb and second portion of the duodenum. ADVERSE EVENTS: There were no complications. IMPRESSIONS: 1. There was short segment of possible Howe's esophagus found in the lower third of the esophagus; multiple biopsies were performed 2. There was chronic gastritis in the entire examined stomach; multiple biopsies were performed 3. Normal duodenal mucosa in the bulb and second portion of the duodenum 4. Retroflexion was performed and was normal RECOMMENDATIONS: 1. Await biopsy results. Biopsy results will not be ready for 7-10 days. If you don't hear from us in two weeks, call our office for biopsy results. 2. Continue PPI PATIENT CONDITION: stable DISPOSITION: Observation REPEAT EXAM: Return as needed for EGD Cristina Lockwood MD eSigned: Cristina Lockwood MD 11/23/2016 9:48 AM cc: PATIENT NAME: Yovany Ibanez MR#: [id number]
--- NOTE | 2016-11-23 09:52 | GIPROC ---
[facility] [address] [facility]. [facility], [address] COLONOSCOPY PROCEDURE REPORT EXAM DATE: 11/23/2016 PATIENT NAME: Yovany Ibanez MR #: [id number] BIRTHDATE: 1980 ENDOSCOPIST: Cristina Lockwood MD ORDER #: [id number] SHOE REPAIRMAN: Jerome Flowers and Sindi Butler STATUS: inpatient INDICATIONS: The patient is a 36 yr old male here for a colonoscopy due to chronic diarrhea PROCEDURE PERFORMED: Colonoscopy, diagnostic MEDICATIONS: None and Per Anesthesia. PREP QUALITY: good PREP TYPE:GoLytely ESTIMATED BLOOD LOSS: None CONSENT: The patient understands the risks and benefits of the procedure and understands that these risks include, but are not limited to: sedation, allergic reaction, infection, perforation and/or bleeding. Alternative means of evaluation and treatment include, among others: physical exam, x-rays, and/or surgical intervention. The patient elects to proceed with this endoscopic procedure. medical equipment was checked for proper function. Hand hygiene and appropriate measures for infection prevention was taken. After the risks, benefits and alternatives of the procedure were thoroughly explained, Informed consent was verified, confirmed and timeout was successfully executed by the treatment team. A digital exam was performed The Pentax EC-[id number] endoscope was introduced through the anus and advanced to the cecum, which was identified by both the appendix and ileocecal valve. The instrument was then slowly withdrawn as the colon was fully examined. COLON FINDINGS: The colonic mucosa appeared normal in the distal ileum and throughout the entire examined colon. Retroflexed views revealed no abnormalities The scope was then completely withdrawn from the patient and the procedure terminated. PROCEDURE WITHDRAWAL TIME:8minutes ADVERSE EVENTS: There were no complications. IMPRESSIONS: 1. The colonic mucosa appeared normal in the distal ileum and throughout the entire examined colon 2. Retroflexed views revealed no abnormalities RECOMMENDATIONS: No treatment RECALL: Return 10 years Colonoscopy Cristina Lockwood MD eSigned: Cristina Lockwood MD 11/23/2016 9:51 AM cc:
[2016-11-23] MEDS: HEPARIN SODIUM - SQ 10,000 UNITS/ML VIAL SQ SCH ×2 (11:00→15:23)
[2016-11-23] MEDS: FOLIC ACID 1 MG TAB PO SCH (11:41)
[2016-11-23] MEDS: PANTOPRAZOLE SODIUM 40 MG VIAL IV PUSH SCH (11:42)
[2016-11-23] MEDS: THIAMINE HCL 100 MG TAB PO SCH (11:42)
[2016-11-23 12:00] VITALS: BP 111/68; PULSE 124; RESP 16; TEMP 98.9; O2SAT 93
[2016-11-23 12:40] VITALS: O2SAT 96
[2016-11-23 14:01] LABS: ANA SCREEN NEG (NEG)
[2016-11-23] MEDS ORDERED: DO NOT ADM ANY ANTICOAGULANT DRUGS PRN (14:30)
--- NOTE | 2016-11-23 14:50 | HHI.FPPN ---
Subjective Remarks Patient seen and examined this morning after procedures. Pt reports doing well. States he has an appetite and wants to eat lunch. Denies any nausea/vomiting this morning. Took the bowel prep yesterday, no bowel movement yet today. Otherwise, denies any complaints/concerns. Continued generalized abdominal pain in his "muscles." (Bruce Best MD, R2) Objective Vitals Vital Signs Date Time Temp Pulse Resp B/P (MAP) Pulse Ox O2 Delivery O2 Flow Rate FiO2 11/23/16 12:00 98.9 124 16 111/68 (82) 93 11/23/16 09:50 98.4 105 16 122/70 (87) 96 11/23/16 08:00 99.4 106 16 120/75 (90) 95 11/23/16 04:19 18 11/23/16 03:45 98.8 93 18 136/66 (89) 98 11/22/16 23:37 19 11/22/16 23:34 99.5 115 18 122/79 (93) 95 11/22/16 20:00 99.6 103 20 144/92 (109) 95 11/22/16 17:48 96 21 11/22/16 16:41 98.2 107 20 135/88 (104) 96 I/O 11/22/16 11/22/16 11/22/16 11/23/16 11/23/16 11/23/16 07:00 15:00 23:00 07:00 15:00 23:00 Intake Total 2240 ml 1000 ml 500 ml Output Total 900 ml Balance 2240 ml -900 ml 1000 ml 500 ml Intake Oral 240 ml IV Total 2000 ml 1000 ml Other 500 ml Output Urine Total 900 ml # Voids 3 # Bowel Movements 2 (Bruce Best MD, R2) Result Diagram: 11/23/16 0507 11/23/16 0507 Objective Remarks GENERAL: Sitting up in bed, no distress, no obvious pain CARDIOVASCULAR: Regular rate and rhythm without murmurs, gallops, or rubs. Regular pulses. RESPIRATORY: Clear to auscultation. Breath sounds equal bilaterally. No wheezes , rales, or rhonchi. GASTROINTESTINAL: Abdomen soft, mildly tender diffusely, mild distension. Can feel liver edge a few cm's below costal margin. No RUQ tenderness. No rigidity or guarding, no rebound tenderness. MUSCULOSKELETAL: Extremities without clubbing, cyanosis, or edema. NEUROLOGICAL: Awake and alert. (Bruce Best MD, R2) A/P Assessment and Plan 36-year-old white male with no significant past medical history presenting to the ED with vomiting of 1.5 years duration. Labs show that his lipase is significantly elevated. He has a history of significant alcohol abuse and also has a dilated common bile duct suggesting that he may have recently passed a gallstone. He is being admitted for management of pancreatitis. Discharge Planning Pending clinically stable and able to tolerate a diet without significant nausea or vomiting. (Bruce Best MD, R2) Attending Attestation Patient seen and examined. Case reviewed and discussed Agree with plan of care as discussed with me and documented in the resident note. (Thais Rangel MD) Problem List: (1) Elevated liver enzymes ICD Codes: R74.8 - Abnormal levels of other serum enzymes Plan: Presented with AST 186/ALT 86, likely demonstrative of alcohol picture. Initially, trended down, now trending up today. Liver palpable on exam. Alk phos elevated. MRCP shows normal intra- and extra-hepatic bile ducts. He has hepatomegaly with severe steatosis. -Indirect/direct bilirubin pending -GI consulted-appreciate recs -Hepatitis panel negative. -ARTURO negative. AFP 5.2 -Ceruloplasmin, A1AT pending -Consider HIDA scan if worsening, to determine gallbladder output (2) Pancreatitis ICD Codes: K85.90 - Acute pancreatitis without necrosis or infection, unspecified Status: Acute Plan: Patient presented with nausea/vomiting and abdominal pain. Lipase increased to 1192, trending down. Differential includes acute versus chronic pancreatitis. May be due to patient's frequent alcohol use. CBD also somewhat increased in diameter suggesting a possible recently passed gallstone. Had slightly elevated alkaline phosphatase. MRCP shows normal intra- and extra-hepatic bile ducts. He has hepatomegaly with severe steatosis. - IV fluid Lactated Ringer's at 250 mL/hr - Advance diet, slowly - Pain management: Toradol 30 mg q6hrs PRN for pain 1-10, Decreased Morphine to 2 mg for breakthrough pain (3) Chronic vomiting ICD Codes: R11.10 - Vomiting, unspecified Status: Chronic Plan: Chronic vomiting along with a chronic cough and GERD-liek symptoms that has been going on for the last 1.5 years. - Consult GI for assistance to investigate causes of chronic vomiting and reflux symptoms -EGD shows Howe's esophagus, gastritis. -Colonoscopy wnl - Continue pantoprazole 40 mg daily (4) Alcohol use ICD Codes: Z78.9 - Other specified health status Status: Acute Plan: Patient admits to drinking alcohol nightly. -CIWA protocol, Ativan PRN -Multivitamin, thiamine, folic acid (5) FEN Status: Acute Plan: Fluids: Lactated Ringer's at 250 ML's per hour Electrolytes: Monitor and replace as needed Nutrition: regular diet DVT prophylaxis: Heparin 5000 units every 12 hours (Bruce Best MD, R2) Problem Qualifiers (1) Pancreatitis: Qualified Codes: K85.20 - Alcohol induced acute pancreatitis without necrosis or infection Bruce Best MD, R2 Nov 23, 2016 14:50 Thais Rangel MD Nov 25, 2016 11:11
[2016-11-23] MEDS: MULTIVITAMINS/MINERALS THERAPEUTIC TAB PO SCH (15:18)
[2016-11-23 16:00] VITALS: BP 114/71; PULSE 101; RESP 16; TEMP 99.1; O2SAT 96
[2016-11-23] MEDS ORDERED: MORPHINE SULFATE 4 MG/ML INJ IV PUSH PRN (18:00)
--- NOTE | 2016-11-23 20:09 | PD.AMA ---
Against Medical Advice Note AMA Statement Patient Yovany Ibanez has decided to leave the hospital against medical advice. This patient has the capacity to refuse care and understands the risks of leaving, including permanent disability and/or , and has had an opportunity to ask questions about his condition. The patient has been informed that he may return for care at any time, and follow up has been arranged/ advised. Spoke with patient in person with Dr. Rosario. He understands that the full workup has not been completed and that it is preferred he stay until morning. However, he is insistent on leaving now. Discussed risks of leaving and that he has biopsy results pending from his EGD. Hand-written prescription given for Omeprazole 40 mg PO qday. Recommended he follow up with his PCP within the week. Greg Glover MD R3 Nov 23, 2016 20:09
[2016-11-26 17:50] LABS: MITOCHONDRIAL ABS LESS THAN 20.0 U (<=20.0)
== END 2016-11-23 20:20 | disposition left against medical advice (07) | DRG 439 ==
LOC: NEPC 06:45 → NEDH 09:10 → N05B 13:03
PROVIDERS: ADMIT Family Medicine; ATTEND Family Medicine
PROC: 0DB68ZX Excision of Stomach, Via Natural or Artificial Opening Endoscopic, Diagnostic (ICD-10-PCS; 2016-11-23)
PROC: 0DJD8ZZ Inspection of Lower Intestinal Tract, Via Natural or Artificial Opening Endoscopic (ICD-10-PCS; principal; 2016-11-23 09:02)
PROC: 0DB38ZX Excision of Lower Esophagus, Via Natural or Artificial Opening Endoscopic, Diagnostic (ICD-10-PCS; 2016-11-23 09:02)
DX: K85.20 Alcohol induced acute pancreatitis without necrosis or infection (principal); E87.2 Acidosis; K92.0 Hematemesis; E86.0 Dehydration; K21.9 Gastro-esophageal reflux disease without esophagitis; R09.82 Postnasal drip; D75.89 Other specified diseases of blood and blood-forming organs; R00.0 Tachycardia, unspecified; K76.0 Fatty (change of) liver, not elsewhere classified; E87.6 Hypokalemia; K22.70 Barrett's esophagus without dysplasia; K29.70 Gastritis, unspecified, without bleeding
CPT/HCPCS: 71010; 74181; 76377; 76700; 76937; 80053; 80074; 80307; 81001; 82103; 82105; 82272; 82390; 82607; 83036; 83520; 83605; 83690; 84478; 84484; 85025; 85027; 86038; 86255; 88305; 88312; 93005; 96361; 96374; 96375; C9113; J1644; J1885; J2060; J2270; J2405; J3480; J7030; J7120

== ENCOUNTER 2017-04-14 02:17 | Emergency (ER) | payer SELFPAY ==
[~2017-04-14] VITALS: Ht 188 cm; Wt 92.0 kg
[2017-04-14 02:18] VITALS: BP 132/102; PULSE 112; RESP 16; TEMP 98.7; O2SAT 98
[2017-04-14] MEDS ORDERED: NEXI20CA PO (02:51)
[2017-04-14] MEDS ORDERED: ONDANSETRON HCL 4 MG/2 ML VIAL IV PUSH ONE (03:15)
[2017-04-14 03:20] LABS: AUTOMATED NEUTROPHIL # 6.4 TH/MM3 (1.8-7.7); BASOPHIL # 0.1 TH/MM3 (0-0.2); BASOPHIL % 0.7 % (0.0-2.0); EOSINOPHIL # 0.1 TH/MM3 (0-0.4); EOSINOPHIL % 0.8 % (0.0-4.0); HEMATOCRIT 45.3 % (39.0-51.0); HEMOGLOBIN 16.2 GM/DL (13.0-17.0); LYMPH % 20.1 % (9.0-44.0); LYMPHOCYTE # 1.9 TH/MM3 (1.0-4.8); MEAN CELL VOLUME 104.8 FL (80.0-100.0); MEAN CORPUSCULAR HEMOGLOBIN 37.4 PG (27.0-34.0); MEAN CORPUSCULAR HGB CONC 35.7 % (32.0-36.0); MEAN PLATELET VOLUME 9.3 FL (7.0-11.0); NEUT % 67.4 % (16.0-70.0); PLATELET COUNT 193 TH/MM3 (150-450); RED BLOOD COUNT 4.32 MIL/MM3 (4.50-5.90); RED CELL DISTRIBUTION WIDTH 13.6 % (11.6-17.2); WHITE BLOOD COUNT 9.5 TH/MM3 (4.0-11.0)
[2017-04-14 03:38] LABS: ALKALINE PHOSPHATASE 175 U/L (45-117); TOTAL BILIRUBIN ADULT 1.6 MG/DL (0.2-1.0); TOTAL PROTEIN 8.4 GM/DL (6.4-8.2)
[2017-04-14 03:40] LABS: ALBUMIN 4.1 GM/DL (3.4-5.0); ALT (GPT) 59 U/L (12-78); AST (GOT) 133 U/L (15-37); BICARBONATE 26.6 MEQ/L (21.0-32.0); BLOOD UREA NITROGEN 3 MG/DL (7-18); CALCIUM 9.5 MG/DL (8.5-10.1); CHLORIDE 94 MEQ/L (98-107); CREATININE 0.75 MG/DL (0.60-1.30); GLOMERULAR FILTRATION RATE 117 ML/MIN (>89); GLUCOSE,RANDOM 110 MG/DL (74-106); LIPASE 534 U/L (73-393); SODIUM (NA) 134 MEQ/L (136-145)
--- NOTE | 2017-04-14 04:14 | PD ---
HPI Chief Complaint: GI Complaint Time Seen by Provider: 03:05 Travel History International Travel<30 days: No Contact w/Intl Traveler<30days: No Traveled to known affect area: No History of Present Illness HPI Patient is a 36-year-old male coming in complaining of epigastric periumbilical pain for the last few weeks he said he's been vomiting nonstop for 4 days and his Nexium that he take did not state how long enough to have any effect it did not help relieve his symptoms. 3 months ago he was in [place] had a CAT scan they said everything was fine and it was just gastritis. He reports having had pancreatitis but they never found out the cause. Patient is a daily drinker he says sometimes when he isn't drinking get shaky and vomits. Denies ever being in full delirium tremens patient in the ER seems a little anxious and shaky as he describes his past abdominal pain history. He has not seen another doctor for this. PFSH Past Medical History Anxiety: Yes Depression: Yes Gastrointestinal Disorders: Yes (VOMITING FOR 1 YEAR) Pancreatitis: Yes Influenza Vaccination: No Past Surgical History Surgical History: No Previous Surgery Social History Alcohol Use: Yes (daily) Tobacco Use: No Substance Use: No Allergies-Medications (Allergen,Severity, Reaction): Coded Allergies: No Known Allergies (Unverified Adverse Reaction, Unknown, 04/14/17) Reported Meds & Prescriptions Reported Meds & Active Scripts Active Magic Mouthwash Pediatric/Adult Liq (Lidocaine/Diphenhydr/Alum/Mg/Simeth) 60 Ml Susp 5 Ml SWISH-SWAL ACHS Each 5mL contains: Diphenydramine 4.5mg, Viscous Lidocaine 2% 10mg, Maalox Advanced Regular Strength 2.7ml Pepcid (Famotidine) 20 Mg Tab 20 Mg PO BID Reported Nexium (Esomeprazole DR) 20 Mg Capdr 20 Mg PO DAILY Review of Systems Except as stated in HPI: all other systems reviewed are Neg Gastrointestinal: Positive: Nausea, Vomiting, Abdominal Pain Physical Exam Narrative GENERAL: Slightly tremulous SKIN: Warm and dry. HEAD: Atraumatic. Normocephalic. EYES: Pupils equal and round. No scleral icterus. No injection or drainage. ENT: No nasal bleeding or discharge. Mucous membranes pink and moist. NECK: Trachea midline. No JVD. CARDIOVASCULAR: Regular rate and rhythm. RESPIRATORY: No accessory muscle use. Clear to auscultation. Breath sounds equal bilaterally. GASTROINTESTINAL: Abdomen tender in the periumbilical area and right lateral Abdo soft, nondistended. Hepatic and splenic margins not palpable. MUSCULOSKELETAL: Extremities without clubbing, cyanosis, or edema. No obvious deformities. NEUROLOGICAL: Awake and alert. No obvious cranial nerve deficits. Motor grossly within normal limits. Five out of 5 muscle strength in the arms and legs. Normal speech. PSYCHIATRIC: Appropriate mood and affect; insight and judgment normal. Data Data Last Documented VS Vital Signs Date Time Temp Pulse Resp B/P (MAP) Pulse Ox O2 Delivery O2 Flow Rate FiO2 04/14/17 06:31 04/14/17 06:09 98 16 97 Room Air 04/14/17 02:18 98.7 Orders Orders Ondansetron Inj (Zofran Inj) (04/14/17 03:15) Complete Blood Count With Diff (04/14/17 03:06) Comprehensive Metabolic Panel (04/14/17 03:06) Lipase (04/14/17 03:06) Famotidine Inj (Pepcid Inj) (04/14/17 04:15) Sodium Chlor 0.9% 1000 Ml Inj (Ns 1000 M (04/14/17 04:15) Pantoprazole Inj (Protonix Inj) (04/14/17 04:15) Famotidine Inj (Pepcid Inj) (04/14/17 04:15) Sodium Chlor 0.9% 1000 Ml Inj (Ns 1000 M (04/14/17 05:30) Ed Discharge Order (04/14/17 06:35) Ketorolac Inj (Toradol Inj) (04/14/17 06:45) Labs Laboratory Tests Test 04/14/17 03:00 White Blood Count 9.5 TH/MM3 Red Blood Count 4.32 MIL/MM3 Hemoglobin 16.2 GM/DL Hematocrit 45.3 % Mean Corpuscular Volume 104.8 FL Mean Corpuscular Hemoglobin 37.4 PG Mean Corpuscular Hemoglobin Concent 35.7 % Red Cell Distribution Width 13.6 % Platelet Count 193 TH/MM3 Mean Platelet Volume 9.3 FL Neutrophils (%) (Auto) 67.4 % Lymphocytes (%) (Auto) 20.1 % Monocytes (%) (Auto) 11.0 % Eosinophils (%) (Auto) 0.8 % Basophils (%) (Auto) 0.7 % Neutrophils # (Auto) 6.4 TH/MM3 Lymphocytes # (Auto) 1.9 TH/MM3 Monocytes # (Auto) 1.0 TH/MM3 Eosinophils # (Auto) 0.1 TH/MM3 Basophils # (Auto) 0.1 TH/MM3 CBC Comment DIFF FINAL Differential Comment Blood Urea Nitrogen 3 MG/DL Creatinine 0.75 MG/DL Random Glucose 110 MG/DL Total Protein 8.4 GM/DL Albumin 4.1 GM/DL Calcium Level 9.5 MG/DL Alkaline Phosphatase 175 U/L Aspartate Amino Transf (AST/SGOT) 133 U/L Alanine Aminotransferase (ALT/SGPT) 59 U/L Total Bilirubin 1.6 MG/DL Sodium Level 134 MEQ/L Potassium Level 3.4 MEQ/L Chloride Level 94 MEQ/L Carbon Dioxide Level 26.6 MEQ/L Anion Gap 13 MEQ/L Estimat Glomerular Filtration Rate 117 ML/MIN Lipase 534 U/L MDM Medical Decision Making Medical Screen Exam Complete: Yes Emergency Medical Condition: Yes Differential Diagnosis Differential diagnosis includes gastritis versus cholecystitis versus pancreatitis Narrative Course Patient has periumbilical-like pain lipase is mildly elevated at 534. Due to his lipase level and lack of fever lack of uncontrolled vomiting I think it is safe to discharge I do not feel it is indicated to do a CAT scan at this time. I hydrated him with 2 L of fluid and Pepcid and Protonix he is sleeping comfortably with discharged follow-up as an outpatient Diagnosis Primary Impression: Pain in the abdomen Qualified Codes: R10.84 - Generalized abdominal pain Additional Impression: Pancreatitis, chronic Qualified Codes: K86.0 - Alcohol-induced chronic pancreatitis Patient Instructions: General Instructions, Pancreatitis (ED) Scripts Ondansetron Odt (Zofran Odt) 4 Mg Tab 4 MG SL Q6HR Y for Nausea/Vomiting, #15 TAB 0 Refills Prov: Solomon Dunham MD 04/14/17 Nwnwzgpdzmtgiat-Celpmpudb-Wrg-Alum-Simeth Liq (Magic Mouthwash Pediatric/Adult Liq) 60 Ml Susp 5 ML SWISH-SWAL ACHS for Mouth sores, #60 ML 0 Refills Each 5mL contains: Diphenydramine 4.5mg, Viscous Lidocaine 2% 10mg, Maalox Advanced Regular Strength 2.7ml Prov: Solomon Dunham MD 04/14/17 Famotidine (Pepcid) 20 Mg Tab 20 MG PO BID, #30 TAB 0 Refills Prov: Solomon Dunham MD 04/14/17 Disposition: 01 DISCHARGE HOME Condition: Good Solomon Dunham MD Apr 14, 2017 04:14
[2017-04-14] MEDS ORDERED: SODIUM CHLOR 0.9% 1000 ML INJ 1,000 ML IV ONE ×2 (04:15→05:30)
[2017-04-14] MEDS ORDERED: PANTOPRAZOLE SODIUM 40 MG VIAL IV PUSH ONE (04:15)
[2017-04-14] MEDS ORDERED: FAMOTIDINE 20 MG/2 ML VIAL IV PUSH SCH ×2 (04:15)
[2017-04-14 05:36] VITALS: BP 115/56; PULSE 100; RESP 16; O2SAT 96
[2017-04-14] MEDS ORDERED: MAGICPED SWISH-SWAL (05:37)
[2017-04-14] MEDS ORDERED: FAMO1TAB37 PO (05:37)
[2017-04-14 06:09] VITALS: BP 124/63; PULSE 98; RESP 16; O2SAT 97
[2017-04-14] MEDS ORDERED: KETOROLAC TROMETHAMINE 60 MG/2 ML (IM) VIAL IM ONE (06:45)
[2017-04-14] MEDS ORDERED: ZOFR4TAB3 SL (06:50)
== END 2017-04-14 06:53 | disposition home or self-care (01) ==
LOC: NEPE 02:17
DX: K85.90 Acute pancreatitis without necrosis or infection, unspecified (principal); K86.0 Alcohol-induced chronic pancreatitis; F32.9 Major depressive disorder, single episode, unspecified; F41.9 Anxiety disorder, unspecified; F10.20 Alcohol dependence, uncomplicated
CPT/HCPCS: 80053; 83690; 85025; 96361; 96374; 96375; 99284; C9113; J2405; J7030

== ENCOUNTER 2017-05-06 20:56 | Emergency (ER) | payer SELFPAY ==
[~2017-05-06] VITALS: Ht 190.5 cm; Wt 93.0 kg
[~2017-05-06 20:56] MED LIST: FAMO1TAB37 PO; MAGICPED SWISH-SWAL; NEXI20CA PO; ZOFR4TAB3 SL
[2017-05-06 20:58] VITALS: BP 116/67; PULSE 101; RESP 20; TEMP 99.1; O2SAT 99
[2017-05-06 21:18] VITALS: BP 135/84; PULSE 92; RESP 18; O2SAT 97
[2017-05-06] MEDS ORDERED: SODIUM CHLOR 0.9% 1000 ML INJ 1,000 ML IV ONE (22:00)
[2017-05-06] MEDS ORDERED: SODIUM CHLORIDE 0.9% FLUSH 10 ML FLUSH IV FLUSH PRN (22:00)
[2017-05-06] MEDS ORDERED: ONDANSETRON HCL 4 MG/2 ML VIAL IV PUSH ONE (22:00)
[2017-05-06 22:27] LABS: AUTOMATED NEUTROPHIL # 8.8 TH/MM3 (1.8-7.7); BASOPHIL # 0.1 TH/MM3 (0-0.2); BASOPHIL % 0.8 % (0.0-2.0); EOSINOPHIL # 0.1 TH/MM3 (0-0.4); EOSINOPHIL % 0.8 % (0.0-4.0); HEMATOCRIT 46.8 % (39.0-51.0); HEMOGLOBIN 16.6 GM/DL (13.0-17.0); LYMPH % 23.5 % (9.0-44.0); LYMPHOCYTE # 3.1 TH/MM3 (1.0-4.8); MEAN CELL VOLUME 104.9 FL (80.0-100.0); MEAN CORPUSCULAR HEMOGLOBIN 37.2 PG (27.0-34.0); MEAN CORPUSCULAR HGB CONC 35.4 % (32.0-36.0); MEAN PLATELET VOLUME 8.9 FL (7.0-11.0); MONO % 7.9 % (0.0-8.0); PLATELET COUNT 250 TH/MM3 (150-450); RED BLOOD COUNT 4.46 MIL/MM3 (4.50-5.90); RED CELL DISTRIBUTION WIDTH 13.2 % (11.6-17.2); WHITE BLOOD COUNT 13.1 TH/MM3 (4.0-11.0)
[2017-05-06 22:34] VITALS: O2SAT 100
[2017-05-06 22:37] LABS: BILIRUBIN, URINE NEG (NEG); BLOOD, URINE NEG (NEG); GLUCOSE,URINE NEG (NEG); KETONE, URINE NEG (NEG); NITRITE,URINE NEG (NEG); URINE COLOR LIGHT-YELLOW (YELLW/STRAW); URINE LEUKOCYTE ESTERASE NEG (NEG)
[2017-05-06] MEDS ORDERED: KETOROLAC TROMETHAMINE 30 MG/ML (IVP) VIAL IV PUSH ONE (23:00)
[2017-05-06 23:10] LABS: ALBUMIN 3.4 GM/DL (3.4-5.0); ALKALINE PHOSPHATASE 172 U/L (45-117); ALT (GPT) 54 U/L (12-78); AST (GOT) 110 U/L (15-37); BICARBONATE 31.9 MEQ/L (21.0-32.0); BLOOD UREA NITROGEN 3 MG/DL (7-18); CALCIUM 9.5 MG/DL (8.5-10.1); CHLORIDE 90 MEQ/L (98-107); CREATININE 0.81 MG/DL (0.60-1.30); GLOMERULAR FILTRATION RATE 107 ML/MIN (>89); GLUCOSE,RANDOM 94 MG/DL (74-106); SODIUM (NA) 132 MEQ/L (136-145); TOTAL BILIRUBIN ADULT 1.2 MG/DL (0.2-1.0); TOTAL PROTEIN 7.9 GM/DL (6.4-8.2)
[2017-05-06] MEDS ORDERED: IOHEXOL 350 MG/ML 10 ML VIAL (for RAD DIAG) IVCONTRAST ONE (23:15)
[2017-05-06] MEDS ORDERED: POTASSIUM CHLOR 10 MEQ PREMIX 100 ML IV ONE (23:15)
[2017-05-06 23:27] VITALS: BP 114/70; PULSE 99; RESP 18; O2SAT 95
--- NOTE | 2017-05-06 23:36 | RADRPT ---
EXAM DATE/TIME: 05/06/2017 23:14 [facility] COMPARISON: No previous studies available for comparison. INDICATIONS : Abdominal pain with weight loss. IV CONTRAST: 75 cc Omnipaque 350 (iohexol) IV ORAL CONTRAST: No oral contrast ingested. RADIATION DOSE: 6.97 CTDIvol (mGy) MEDICAL HISTORY : Crohn's disease. Pancreatitis. IBS. SURGICAL HISTORY : None. ENCOUNTER: Initial ACUITY: 2 weeks PAIN SCALE: 8/10 LOCATION: Bilateral abdomen TECHNIQUE: Volumetric scanning of the abdomen and pelvis was performed. Using automated exposure control and ad justment of the mA and/or kV according to patient size, radiation dose was kept as low as reasonably achievable to obtain optimal diagnostic quality images. DICOM format image data is available electro nically for review and comparison. FINDINGS: LOWER LUNGS: The visualized lower lungs are clear. LIVER: Homogeneous decreased density without lesion. There is no dilation of the biliary tree. No calcifie d gallstones. SPLEEN: Normal size without lesion. PANCREAS: Within normal limits. KIDNEYS: Normal in size and shape. There is no mass, stone or hydronephrosis. ADRENAL GLANDS: Within normal limits. VASCULAR: There is no aortic aneurysm. BOWEL/MESENTERY: The stomach, small bowel, and colon demonstrate no acute abnormality. There is no free intraperitone al air or fluid. ABDOMINAL WALL: Within normal limits. RETROPERITONEUM: There is no lymphadenopathy. BLADDER: No wall thickening or mass. REPRODUCTIVE: Within normal limits. INGUINAL: There is no lymphadenopathy or hernia. MUSCULOSKELETAL: Within normal limits for patient age. CONCLUSION: 1. No acute findings. Diffuse fatty infiltration of the liver. Small hiatal hernia. Ponce Child MD on May 06, 2017 at 23:28 Board Certified Radiologist. This report was verified electronically.
[2017-05-07] MEDS ORDERED: POTASSIUM CHLORIDE 20 MEQ CONTROLLED RELEASE TAB PO ONE (00:30)
[2017-05-07] MEDS ORDERED: POTA-163 PO (01:02)
[2017-05-07] MEDS ORDERED: PROM25TA10 PO (01:02)
--- NOTE | 2017-05-07 01:02 | PD ---
HPI Chief Complaint: Abdominal Pain Time Seen by Provider: 21:51 Travel History International Travel<30 days: No Contact w/Intl Traveler<30days: No Traveled to known affect area: No History of Present Illness HPI 36-year-old male with chronic abdominal pain presents to the emergency department complaint of nausea vomiting abdominal pain. Patient reports that he has been told he has some type of inflammatory bowel disease possibly Crohn' s. Patient states that he has not seen a electrical tech/project manager since returning to [place]. Patient states he recently moved from [place]. Patient has had no fever. Patient denies hematemesis coffee-ground emesis or bilious emesis. Patient denies diarrhea or constipation. No hematochezia or melena. Patient had good urine output. Patient states she has had poor oral intake. No family history of irritable bowel syndrome or inflammatory bowel disease. PFSH Past Medical History Narrative Medical Anxiety depression inflammatory bowel disease upper endoscopy; alcohol use; nursing notes reviewed Anxiety: Yes Depression: Yes Gastrointestinal Disorders: Yes (VOMITING FOR 1 YEAR, ibs) Pancreatitis: Yes Tetanus Vaccination: Unknown Social History Alcohol Use: Yes (daily) Tobacco Use: No Substance Use: No Allergies-Medications (Allergen,Severity, Reaction): Coded Allergies: penicillin G (Verified Allergy, Unknown, 05/06/17) No Known Allergies (Unverified Adverse Reaction, Unknown, 04/14/17) Reported Meds & Prescriptions Reported Meds & Active Scripts Active Potassium Chloride ER (Potassium Chloride) 20 Meq Tab 20 Meq PO DAILY 5 Days Phenergan (Promethazine HCl) 25 Mg Tablet 25 Mg PO Q6H PRN Reported Nexium (Esomeprazole DR) 20 Mg Capdr 20 Mg PO DAILY Review of Systems Except as stated in HPI: all other systems reviewed are Neg General / Constitutional: No: Fever, Chills HENT: No: Congestion Cardiovascular: No: Chest Pain or Discomfort Respiratory: No: Shortness of Breath Gastrointestinal: Positive: Nausea, Vomiting, Abdominal Pain, No: Diarrhea Genitourinary: No: Frequency, Dysuria Skin: No Rash Neurologic: No: Weakness Psychiatric: No: Anxiety Hematologic/Lymphatic: No: Lymph Node Enlargement Physical Exam Narrative GENERAL: Well-developed well-nourished male no acute distress or respiratory distress SKIN: Warm and dry. HEAD: Normocephalic. EYES: No scleral icterus. No injection or drainage. NECK: Supple, trachea midline. No JVD or lymphadenopathy. CARDIOVASCULAR: Increased regular rate and rhythm without murmurs, gallops, or rubs. RESPIRATORY: Breath sounds equal bilaterally. No accessory muscle use. GASTROINTESTINAL: Abdomen soft, non-tender, nondistended. MUSCULOSKELETAL: No cyanosis, or edema. BACK: Nontender without obvious deformity. No CVA tenderness. Data Data Last Documented VS Vital Signs Date Time Temp Pulse Resp B/P (MAP) Pulse Ox O2 Delivery O2 Flow Rate FiO2 05/07/17 00:46 18 05/06/17 23:27 99 114/70 (85) 95 Room Air 05/06/17 20:58 99.1 Orders Orders Complete Blood Count With Diff (05/06/17 21:51) Comprehensive Metabolic Panel (05/06/17 21:51) Lipase (05/06/17 21:51) Urinalysis - C+S If Indicated (05/06/17 21:51) Ct Abd/Pel W Iv Contrast(Rout) (05/06/17 21:51) Iv Access Insert/Monitor (05/06/17 21:51) Ecg Monitoring (05/06/17 21:51) Oximetry (05/06/17 21:51) Sodium Chloride 0.9% Flush (Ns Flush) (05/06/17 22:00) Drug Screen, Random Urine (05/06/17 21:51) Sodium Chlor 0.9% 1000 Ml Inj (Ns 1000 M (05/06/17 22:00) Ondansetron Inj (Zofran Inj) (05/06/17 22:00) Ketorolac Inj (Toradol Inj) (05/06/17 23:00) Potassium Chlor 10 Meq Premix (Kcl 10 Me (05/06/17 23:15) Iohexol 350 Inj (Omnipaque 350 Inj) (05/06/17 23:15) Potassium Chloride (Kcl) (05/07/17 00:30) Mandatory Outpatient Referral (05/07/17 01:02) Ondansetron Inj (Zofran Inj) (05/07/17 01:45) Ns (Bolus) Inj (05/07/17 01:45) Kcl Bolus Inj (05/07/17 01:45) Ed Discharge Order (05/07/17 01:47) Labs Laboratory Tests Test 05/06/17 22:02 White Blood Count 13.1 TH/MM3 Red Blood Count 4.46 MIL/MM3 Hemoglobin 16.6 GM/DL Hematocrit 46.8 % Mean Corpuscular Volume 104.9 FL Mean Corpuscular Hemoglobin 37.2 PG Mean Corpuscular Hemoglobin Concent 35.4 % Red Cell Distribution Width 13.2 % Platelet Count 250 TH/MM3 Mean Platelet Volume 8.9 FL Neutrophils (%) (Auto) 67.0 % Lymphocytes (%) (Auto) 23.5 % Monocytes (%) (Auto) 7.9 % Eosinophils (%) (Auto) 0.8 % Basophils (%) (Auto) 0.8 % Neutrophils # (Auto) 8.8 TH/MM3 Lymphocytes # (Auto) 3.1 TH/MM3 Monocytes # (Auto) 1.0 TH/MM3 Eosinophils # (Auto) 0.1 TH/MM3 Basophils # (Auto) 0.1 TH/MM3 CBC Comment DIFF FINAL Differential Comment Urine Color LIGHT-YELLOW Urine Turbidity CLEAR Urine pH 6.0 Urine Specific [place] 1.001 Urine Protein NEG mg/dL Urine Glucose (UA) NEG mg/dL Urine Ketones NEG mg/dL Urine Occult Blood NEG Urine Nitrite NEG Urine Bilirubin NEG Urine Urobilinogen LESS THAN 2.0 MG/DL Urine Leukocyte Esterase NEG Microscopic Urinalysis Comment CULT NOT INDICATED Blood Urea Nitrogen 3 MG/DL Creatinine 0.81 MG/DL Random Glucose 94 MG/DL Total Protein 7.9 GM/DL Albumin 3.4 GM/DL Calcium Level 9.5 MG/DL Alkaline Phosphatase 172 U/L Aspartate Amino Transf (AST/SGOT) 110 U/L Alanine Aminotransferase (ALT/SGPT) 54 U/L Total Bilirubin 1.2 MG/DL Sodium Level 132 MEQ/L Potassium Level 2.5 MEQ/L Chloride Level 90 MEQ/L Carbon Dioxide Level 31.9 MEQ/L Anion Gap 10 MEQ/L Estimat Glomerular Filtration Rate 107 ML/MIN Lipase 284 U/L MDM Medical Decision Making Medical Screen Exam Complete: Yes Emergency Medical Condition: Yes Medical Record Reviewed: Yes Differential Diagnosis Gastroenteritis, gastritis, peptic ulcer disease, colitis, diverticulitis, dehydration, electrolyte disturbance Narrative Course IV access obtained specimens collections of resulting patient given liter normal saline along with Zofran 4 mg Patient was identified to have low potassium of 2.6 and was given IV potassium replacement as well as oral potassium replacement CT abdomen pelvis reveals no acute abnormality Patient given additional dose of IV potassium and is stable for outpatient management mandatory referral for GI evaluation was ordered and patient was discharged with prescription for Phenergan and potassium supplementation Diagnosis Primary Impression: Abdominal pain Qualified Codes: R10.84 - Generalized abdominal pain Additional Impression: Hypokalemia Referrals: [facility] call for appointment Sports Intern 1 week Patient Instructions: General Instructions Departure Forms: Tests/Procedures Additional Instructions: Follow clear liquid diet for next 12-24 hours advance as tolerated to bland/ brat diet add potassium containing foods and beverages to dietary intake follow-up with primary care provider follow-up with electrical tech/project manager return to the emergency department for any concerns or change in condition Med/Other Pt SpecificInfo: Prescription(s) given Scripts Potassium Chloride ER (Potassium Chloride ER) 20 Meq Tab 20 MEQ PO DAILY for Electrolyte Replacement for 5 Days, #5 TAB 0 Refills Prov: Laura Sanders MD 05/07/17 Promethazine (Phenergan) 25 Mg Tablet 25 MG PO Q6H Y for NAUSEA OR VOMITING, #15 TAB 0 Refills Prov: Laura Sanders MD 05/07/17 Disposition: 01 DISCHARGE HOME Condition: Stable Laura Sanders MD May 07, 2017 01:02
[2017-05-07] MEDS ORDERED: POTASSIUM CHLOR 10 MEQ PREMIX 100 ML IV ONE (01:45)
[2017-05-07] MEDS ORDERED: SODIUM CHLORID 0.9% 500 ML INJ 500 ML IV ONE (01:45)
[2017-05-07] MEDS ORDERED: ONDANSETRON HCL 4 MG/2 ML VIAL IV PUSH ONE (01:45)
[2017-05-07 02:07] VITALS: BP 101/51; PULSE 106; RESP 18; O2SAT 100
== END 2017-05-07 03:35 | disposition home or self-care (01) ==
LOC: NEPC 20:56 → NEDAMB 05-07 03:35
DX: R10.84 Generalized abdominal pain (principal); E87.6 Hypokalemia; R11.10 Vomiting, unspecified; Z79.899 Other long term (current) drug therapy
CPT/HCPCS: 74177; 80053; 80307; 81001; 83690; 85025; 96361; 96365; 96375; 96376; 99285; J1885; J2405; J3480; J7030; J7040; Q9967

== ENCOUNTER 2017-05-23 20:03 | Inpatient (IN) | payer SELFPAY ==
[~2017-05-23] VITALS: Ht 188 cm; Wt 90.9 kg
[~2017-05-23 20:03] MED LIST changes: -FAMO1TAB37 PO; -MAGICPED SWISH-SWAL; +POTA-163 PO; +PROM25TA10 PO; -ZOFR4TAB3 SL
[2017-05-23 20:15] VITALS: BP 148/89; PULSE 123; RESP 24; TEMP 99.5; O2SAT 97
[2017-05-23 21:00] VITALS: BP 122/63; PULSE 112; RESP 20; O2SAT 99
[2017-05-23] MEDS ORDERED: SODIUM CHLOR 0.9% 1000 ML INJ 1,000 ML IV ONE ×2 (21:30→23:30)
[2017-05-23] MEDS ORDERED: LORazepam 2 MG/ML VIAL IV PUSH ONE (21:30)
[2017-05-23] MEDS ORDERED: ONDANSETRON HCL 4 MG/2 ML VIAL IV PUSH ONE (21:30)
[2017-05-23] MEDS ORDERED: THIAMINE INJ 100 MG in SODIUM CHLORIDE 0.9% INJ 100 ML IV ONE (21:30)
--- NOTE | 2017-05-23 21:37 | PD ---
HPI Chief Complaint: Abdominal Pain Time Seen by Provider: 21:16 Travel History International Travel<30 days: No Contact w/Intl Traveler<30days: No Traveled to known affect area: No History of Present Illness HPI 36yo M with PMH of chronic abdominal pain, alcohol abuse, anxiety, depression here with c/o abdominal pain for 3 days. Associated with nausea and vomiting. Pain is diffuse and sometimes goes to different areas of the back. No actual fever but feels warm. During review of system, pt said yes to sob but is saturating at 98% on RA and speaking in complete sentences. Denies any chest pain, dysuria, hematuria, testicular pain, penile discharge, focal weakness. Pt was seen on May 06 for abdominal pain and had negative CT a/p. Also had EGD that showed barretts esophagus and gastritis and colonoscopy that was normal in 10/2016. PFSH Past Medical History Anxiety: Yes Depression: Yes Diminished Hearing: No Gastrointestinal Disorders: Yes (VOMITING FOR 1 YEAR, ibs) Pancreatitis: Yes Influenza Vaccination: No Past Surgical History Surgical History: No Previous Surgery Social History Alcohol Use: Yes (daily) Tobacco Use: No Substance Use: No Allergies-Medications (Allergen,Severity, Reaction): Coded Allergies: penicillin G (Verified Allergy, Unknown, 05/23/17) No Known Allergies (Unverified Adverse Reaction, Unknown, 05/23/17) Reported Meds & Prescriptions Reported Meds & Active Scripts Active Potassium Chloride ER (Potassium Chloride) 20 Meq Tab 20 Meq PO DAILY 5 Days Phenergan (Promethazine HCl) 25 Mg Tablet 25 Mg PO Q6H PRN Reported Nexium (Esomeprazole DR) 20 Mg Capdr 20 Mg PO DAILY Review of Systems Except as stated in HPI: all other systems reviewed are Neg Physical Exam Narrative GENERAL: 36yo M in mild distress. SKIN: Focused skin assessment warm/dry. HEAD: Atraumatic. Normocephalic. EYES: Pupils equal and round. No scleral icterus. No injection or drainage. ENT: No nasal bleeding or discharge. Mucous membranes pink and moist. NECK: Trachea midline. No JVD. CARDIOVASCULAR: Tachycardic in the 110s-120s. No murmur appreciated. RESPIRATORY: No accessory muscle use. Clear to auscultation. Breath sounds equal bilaterally. GASTROINTESTINAL: Abdomen soft, +Diffuse ttp. No rebound tenderness or guarding. BACK: No midline ttp thoracic or lumbar spine. +TTP bilateral scapula. MUSCULOSKELETAL: No obvious deformities. No clubbing. No cyanosis. No edema. NEUROLOGICAL: Awake and alert. No obvious cranial nerve deficits. Motor grossly within normal limits. Sensation intact. Normal speech. +Resting tremors in bilateral upper extremities. +Tongue fasciculations. PSYCHIATRIC: Anxious appearing. Data Data Last Documented VS Vital Signs Date Time Temp Pulse Resp B/P (MAP) Pulse Ox O2 Delivery O2 Flow Rate FiO2 05/24/17 00:30 99.0 112 20 121/72 (88) 95 Room Air Orders Orders Complete Blood Count With Diff (05/23/17 20:16) Comprehensive Metabolic Panel (05/23/17 20:16) Lipase (05/23/17 20:16) Urinalysis - C+S If Indicated (05/23/17 20:16) Electrocardiogram (05/23/17 ) Chest, Single Ap (05/23/17 ) Sodium Chlor 0.9% 1000 Ml Inj (Ns 1000 M (05/23/17 21:30) Ondansetron Inj (Zofran Inj) (05/23/17 21:30) Thiamine Inj (Thiamine Inj) (05/23/17 21:30) Magnesium (Mg) (05/23/17 21:29) Lorazepam Inj (Ativan Inj) (05/23/17 21:30) Alcohol (Ethanol) (05/23/17 21:38) Ct Abd/Pel W Iv Contrast(Rout) (05/23/17 ) Troponin I (05/23/17 23:22) Sodium Chlor 0.9% 1000 Ml Inj (Ns 1000 M (05/23/17 23:30) Morphine Inj (Morphine Inj) (05/23/17 23:30) Iohexol 350 Inj (Omnipaque 350 Inj) (05/23/17 23:58) Blood Culture (05/24/17 00:21) Lactic Acid Sepsis Protocol (05/24/17 00:21) Aztreonam Inj (Azactam Inj) (05/24/17 00:30) Morphine Inj (Morphine Inj) (05/24/17 00:30) Admit Order (Ed Use Only) (05/24/17 00:46) Labs Laboratory Tests Test 05/23/17 21:35 White Blood Count 15.1 TH/MM3 Red Blood Count 4.87 MIL/MM3 Hemoglobin 18.1 GM/DL Hematocrit 50.4 % Mean Corpuscular Volume 103.4 FL Mean Corpuscular Hemoglobin 37.0 PG Mean Corpuscular Hemoglobin Concent 35.8 % Red Cell Distribution Width 13.3 % Platelet Count 331 TH/MM3 Mean Platelet Volume 8.1 FL Neutrophils (%) (Auto) 83.4 % Lymphocytes (%) (Auto) 8.2 % Monocytes (%) (Auto) 7.8 % Eosinophils (%) (Auto) 0.1 % Basophils (%) (Auto) 0.5 % Neutrophils # (Auto) 12.6 TH/MM3 Lymphocytes # (Auto) 1.2 TH/MM3 Monocytes # (Auto) 1.2 TH/MM3 Eosinophils # (Auto) 0.0 TH/MM3 Basophils # (Auto) 0.1 TH/MM3 CBC Comment DIFF FINAL Differential Comment Blood Urea Nitrogen 4 MG/DL Creatinine 1.10 MG/DL Random Glucose 140 MG/DL Total Protein 8.2 GM/DL Albumin 3.6 GM/DL Calcium Level 10.0 MG/DL Alkaline Phosphatase 198 U/L Aspartate Amino Transf (AST/SGOT) 57 U/L Alanine Aminotransferase (ALT/SGPT) 42 U/L Total Bilirubin 2.0 MG/DL Sodium Level 138 MEQ/L Potassium Level 3.8 MEQ/L Chloride Level 97 MEQ/L Carbon Dioxide Level 31.0 MEQ/L Anion Gap 10 MEQ/L Estimat Glomerular Filtration Rate 75 ML/MIN Magnesium Level 1.6 MG/DL Troponin I LESS THAN 0.02 NG/ML Lipase 256 U/L Ethyl Alcohol Level LESS THAN 3 MG/DL [facility] Medical Decision Making Medical Screen Exam Complete: Yes Emergency Medical Condition: Yes Interpretation(s) EKG: Sinus tachycardia at 114bpm. Normal axis. ST depression V3-V6. Poor baseline. Differential Diagnosis Alcoholic gastritis vs. pancreatitis vs. alcohol withdrawal Narrative Course 36yo M with abdominal pain, vomiting for 3 days. Pt denies being a chronic alcoholic but review of record show otherwise. Pt is tachycardic and tremulous and likely in alcohol withdrawal as his last alcohol was a week ago. Labs reviewed, leukocytosis at 15.1. Hemoglobin elevated, likely dehydration. Bilirubin mildly elevated at 2.0, may be secondary to dehydration. AST and alk phos elevated but at baseline. Lipase normal at 256. Troponin negative. Magnesium normal. Alcohol less than 3. Pt given NS IVF and thimaine, zofran, ativan and tachycardia improved but still mildly tachycardic. Will give another liter of NS IVF. CXR showed no acute cardiopulmonary disease. CT a/p showed very subtle stranding near the pancreatic head may reflect mild pancreatitis. Normal appendix. Hepatic steatosis. Pt reevaluated at bedside and is still in a lot of pain. Pain is mainly epigastric and some RUQ. Pt is still tachycardic at 110bpm and on second liter of NS IVF. This may be multifactorial and can be secondary to dehydration, or alcohol withdrawal given that pt last drank alcohol 1 week ago or sepsis. Will obtain blood culture, lactic acid and empirically give aztreonam. 2nd dose of morphine ordered. Discussed with Dr. Garland's PA and accepted to her service. Sepsis Criteria SIRS Criteria (2 or more): Heart rate over 90, WBC > 84809, < 4000 or > 10% bands Sepsis Criteria (SIRS+source): Infect source susp/known Diagnosis Primary Impression: Dehydration Additional Impression: Sepsis Qualified Codes: A41.9 - Sepsis, unspecified organism Admitting Information Admitting Physician Requests: Observation Sujata Guillermo DO May 23, 2017 21:37
[2017-05-23 21:51] LABS: AUTOMATED NEUTROPHIL # 12.6 TH/MM3 (1.8-7.7); BASOPHIL # 0.1 TH/MM3 (0-0.2); BASOPHIL % 0.5 % (0.0-2.0); EOSINOPHIL % 0.1 % (0.0-4.0); HEMATOCRIT 50.4 % (39.0-51.0); HEMOGLOBIN 18.1 GM/DL (13.0-17.0); LYMPH % 8.2 % (9.0-44.0); LYMPHOCYTE # 1.2 TH/MM3 (1.0-4.8); MEAN CELL VOLUME 103.4 FL (80.0-100.0); MEAN CORPUSCULAR HGB CONC 35.8 % (32.0-36.0); MEAN PLATELET VOLUME 8.1 FL (7.0-11.0); MONO % 7.8 % (0.0-8.0); MONOCYTE # 1.2 TH/MM3 (0-0.9); NEUT % 83.4 % (16.0-70.0); PLATELET COUNT 331 TH/MM3 (150-450); RED BLOOD COUNT 4.87 MIL/MM3 (4.50-5.90); RED CELL DISTRIBUTION WIDTH 13.3 % (11.6-17.2); WHITE BLOOD COUNT 15.1 TH/MM3 (4.0-11.0)
--- NOTE | 2017-05-23 22:03 | RADRPT ---
EXAM DATE/TIME: 05/23/2017 21:43 [facility] COMPARISON: CHEST SINGLE AP, November 21, 2016, 7:31. INDICATIONS : Shortness of breaeth, nausea, vomiting. MEDICAL HISTORY : None. SURGICAL HISTORY : None. ENCOUNTER: Initial ACUITY: 3 days PAIN SCORE: 0/10 LOCATION: Bilateral chest FINDINGS: A single view of the chest demonstrates the lungs to be symmetrically aerated without evidence of mas s, infiltrate or effusion. The cardiomediastinal contours are unremarkable. Osseous structures are intact. CONCLUSION: 1. No acute cardiopulmonary disease. Fahad Thomas MD on May 23, 2017 at 22:02 Board Certified Radiologist. This report was verified electronically.
[2017-05-23 22:06] LABS: ALT (GPT) 42 U/L (12-78)
[2017-05-23 22:08] LABS: ALKALINE PHOSPHATASE 198 U/L (45-117); TOTAL PROTEIN 8.2 GM/DL (6.4-8.2)
[2017-05-23 22:15] LABS: ALBUMIN 3.6 GM/DL (3.4-5.0); AST (GOT) 57 U/L (15-37); BLOOD UREA NITROGEN 4 MG/DL (7-18); CHLORIDE 97 MEQ/L (98-107); GLOMERULAR FILTRATION RATE 75 ML/MIN (>89); GLUCOSE,RANDOM 140 MG/DL (74-106); SODIUM (NA) 138 MEQ/L (136-145)
[2017-05-23 23:00] VITALS: BP 129/74; PULSE 110; RESP 20; O2SAT 96
[2017-05-23] MEDS ORDERED: MORPHINE SULFATE 2 MG/ML INJ IV PUSH ONE (23:30)
[2017-05-23] MEDS ORDERED: IOHEXOL 350 MG/ML 10 ML VIAL (for RAD DIAG) IVCONTRAST ONE (23:58)
[2017-05-24] VITALS (7 sets, daily range): BP systolic 121–134; BP diastolic 72–92; PULSE 81–112; RESP 16–20; TEMP 98.3–99.3; O2SAT 9–96
--- NOTE | 2017-05-24 00:10 | RADRPT ---
EXAM DATE/TIME: 05/23/2017 23:55 [facility] COMPARISON: CT ABDOMEN & PELVIS W CONTRAST, May 06, 2017, 23:14. INDICATIONS : Upper abdomen pain for three days. IV CONTRAST: 90 cc Omnipaque 350 (iohexol) IV ORAL CONTRAST: No oral contrast ingested. RADIATION DOSE: 6.64 CTDIvol (mGy) MEDICAL HISTORY : Irritiable bowel syndrome. Pancreatitis. SURGICAL HISTORY : None. ENCOUNTER: Initial ACUITY: 1 day PAIN SCALE: 5/10 LOCATION: Bilateral upper quadrant TECHNIQUE: Volumetric scanning of the abdomen and pelvis was performed. Using automated exposure control and ad justment of the mA and/or kV according to patient size, radiation dose was kept as low as reasonably achievable to obtain optimal diagnostic quality images. DICOM format image data is available electro nically for review and comparison. FINDINGS: LOWER LUNGS: The visualized lower lungs are clear. LIVER: Liver is enlarged with prominent diffuse decreased attenuation. No focal mass or intrahepatic ductal dilatation. SPLEEN: Normal size without lesion. PANCREAS: There a subtle stranding near the pancreatic head extending inferiorly. Pancreas is otherwise is unre markable and enhances uniformly. KIDNEYS: Normal in size and shape. There is no mass, stone or hydronephrosis. ADRENAL GLANDS: Within normal limits. VASCULAR: There is no aortic aneurysm. BOWEL/MESENTERY: The stomach, small bowel, and colon demonstrate no acute abnormality. Appendix is normal. There is n o free intraperitoneal air or fluid. ABDOMINAL WALL: Within normal limits. RETROPERITONEUM: There is no lymphadenopathy. BLADDER: No wall thickening or mass. REPRODUCTIVE: Within normal limits. INGUINAL: There is no lymphadenopathy or hernia. MUSCULOSKELETAL: Within normal limits for patient age. CONCLUSION: 1. Very subtle stranding near the pancreatic head may reflect mild pancreatitis. Clinical correlation is recommended. 2. Normal appendix. 3. Hepatomegaly with redemonstration of profound decrease in attenuation consistent with prominent he patic steatosis. Des Willson MD on May 24, 2017 at 0:05 Board Certified Radiologist. This report was verified electronically.
[2017-05-24] MEDS ORDERED: MORPHINE SULFATE 2 MG/ML INJ IV PUSH ONE (00:30)
[2017-05-24] MEDS ORDERED: AZTREONAM INJ 2,000 MG in SODIUM CHLORIDE 0.9% INJ 100 ML IV ONE (00:30)
[2017-05-24] MEDS ORDERED: SODIUM CHLORIDE 0.9% FLUSH 10 ML FLUSH IV FLUSH PRN (01:00)
[2017-05-24] MEDS ORDERED: NALOXONE HCL 0.4 MG/ML AMP IV PUSH PRN (01:00)
[2017-05-24] MEDS ORDERED: ACETAMINOPHEN 325 MG TAB PO PRN (01:00)
--- NOTE | 2017-05-24 01:24 | HHI.HP ---
[facility]ician No Primary Care Physician Admission Diagnosis Sepsis, dehydration, mild pancreatitis Diagnoses: Chief Complaint: abdominal pain Travel History International Travel<30 Days: No Contact w/Intl Traveler <30 Da: No Traveled to Known Affected Are: No History of Present Illness 36 y/o male with a history of gerd presented to the ED with complaints of abdominal pain with nausea and vomiting for the last 2 days. He states he has had fevers and chills at home. He describes the abdominal pain as intermittent, 8/10, with radiation to his back with associated nausea, worse with movement and better with morphine. He states he may have been diagnosed with pancreatitis in the past but is unsure. He states he quit drinking 1 month ago but had a few beers a couple days ago. He denies any chest pain or sob. Review of Systems Except as stated in HPI: all other systems reviewed are Neg Past Family Social History Past Medical History gerd Past Surgical History tympanic tubes Reported Medications Reported Meds & Active Scripts Active Potassium Chloride ER (Potassium Chloride) 20 Meq Tab 20 Meq PO DAILY 5 Days Phenergan (Promethazine HCl) 25 Mg Tablet 25 Mg PO Q6H PRN Reported Nexium (Esomeprazole DR) 20 Mg Capdr 20 Mg PO DAILY Allergies: Coded Allergies: penicillin G (Verified Allergy, Unknown, 05/23/17) No Known Allergies (Unverified Adverse Reaction, Unknown, 05/23/17) Active Ordered Medications Current Medications Medications (Trade) Dose Ordered Sig/Jorge Route Start Time Stop Time Status Last Admin Sodium Chloride 1,000 ml @ 100 mls/hr Q10H IV 05/24/17 01:00 (NS Flush) 2 ml UNSCH PRN IV FLUSH 05/24/17 01:00 (NS Flush) 2 ml BID IV FLUSH 05/24/17 09:00 (Tylenol) 650 mg Q4H PRN PO 05/24/17 01:00 (Zofran Inj) 4 mg Q6H PRN IVP 05/24/17 01:00 (Narcan Inj) 0.4 mg UNSCH PRN IV PUSH 05/24/17 01:00 Family History Dad: Etoh abuse Mom: Psych issues Social History Tobacco use: Denies Alcohol use: heavy drinker up to a month ago Physical Exam Vital Signs Vital Signs Date Time Temp Pulse Resp B/P (MAP) Pulse Ox O2 Delivery O2 Flow Rate FiO2 05/24/17 00:30 99.0 112 20 121/72 (88) 95 Room Air 05/23/17 23:00 110 20 129/74 (92) 96 Room Air 05/23/17 21:00 112 20 122/63 (82) 99 Room Air 05/23/17 20:15 99.5 123 24 148/89 (108) 97 Physical Exam GENERAL: This is a well-nourished, well-developed patient, in no apparent distress. SKIN: No rashes, ecchymoses or lesions. Cool and dry. HEAD: Atraumatic. Normocephalic. EYES: Pupils equal round and reactive. ENT: Nose without bleeding, purulent drainage or septal hematoma. NECK: Trachea midline. No JVD or lymphadenopathy. CARDIOVASCULAR: Regular rate and rhythm without murmurs, gallops, or rubs. RESPIRATORY: Clear to auscultation. Breath sounds equal bilaterally. No wheezes , rales, or rhonchi. GASTROINTESTINAL: Abdomen soft, RLQ tenderness, distended. No hepato- splenomegaly, or palpable masses. No guarding. MUSCULOSKELETAL: Extremities without clubbing, cyanosis, or edema. No joint tenderness, effusion, or edema noted. No calf tenderness. NEUROLOGICAL: Awake and alert. Motor and sensory grossly within normal limits. Normal speech. Laboratory Laboratory Tests Test 05/23/17 21:35 05/24/17 01:00 White Blood Count 15.1 Red Blood Count 4.87 Hemoglobin 18.1 Hematocrit 50.4 Mean Corpuscular Volume 103.4 Mean Corpuscular Hemoglobin 37.0 Mean Corpuscular Hemoglobin Concent 35.8 Red Cell Distribution Width 13.3 Platelet Count 331 Mean Platelet Volume 8.1 Neutrophils (%) (Auto) 83.4 Lymphocytes (%) (Auto) 8.2 Monocytes (%) (Auto) 7.8 Eosinophils (%) (Auto) 0.1 Basophils (%) (Auto) 0.5 Neutrophils # (Auto) 12.6 Lymphocytes # (Auto) 1.2 Monocytes # (Auto) 1.2 Eosinophils # (Auto) 0.0 Basophils # (Auto) 0.1 CBC Comment DIFF FINAL Differential Comment Blood Urea Nitrogen 4 Creatinine 1.10 Random Glucose 140 Total Protein 8.2 Albumin 3.6 Calcium Level 10.0 Alkaline Phosphatase 198 Aspartate Amino Transf (AST/SGOT) 57 Alanine Aminotransferase (ALT/SGPT) 42 Total Bilirubin 2.0 Sodium Level 138 Potassium Level 3.8 Chloride Level 97 Carbon Dioxide Level 31.0 Anion Gap 10 Estimat Glomerular Filtration Rate 75 Magnesium Level 1.6 Troponin I LESS THAN 0.02 Lipase 256 Ethyl Alcohol Level LESS THAN 3 Date/Time Source Procedure Growth Status 05/24/17 01:00 Blood Peripheral Aerobic Blood Culture Pending Received 05/24/17 01:00 Blood Peripheral Anaerobic Blood Culture Pending Received Result Diagram: 05/23/17213405/23/172134 Imaging Last Impressions Chest X-Ray 05/23/17 0000 Signed Impressions: Service Date/Time: Tuesday, May 23, 2017 21:43 - CONCLUSION: 1. No acute cardiopulmonary disease. Fahad Thomas MD Capsammie VTE Risk Assessment Caprini VTE Risk Assessment: No/Low Risk (score <= 1) Caprini Risk Assessment Model Point Value = 1 Point Value = 2 Point Value = 3 Point Value = 5 Age 41-60 Minor surgery BMI > 25 kg/m2 Swollen legs Varicose veins or History of unexplained or recurrent spontaneous Oral contraceptives or hormone replacement Sepsis (< 1 month) Serious lung disease, including pneumonia (< 1 month) Abnormal pulmonary function Acute myocardial infarction Congestive heart failure (< 1 month) History of inflammatory bowel disease Medical patient at bed rest Age 61-74 Arthroscopic surgery Major open surgery (> 45 min) Laparoscopic surgery (> 45 min) Malignancy Confined to bed (> 72 hours) Immobilizing plaster cast Central venous access Age >= 75 History of VTE Family history of VTE Factor V Leiden Prothrombin [id number] Lupus anticoagulant Anticardiolipin antibodies Elevated serum homocysteine Heparin-induced thrombocytopenia Other congenital or acquired thrombophilia Stroke (< 1 month) Elective arthroplasty Hip, pelvis, or leg fracture Acute spinal cord injury (< 1 month) Prophylaxis Regimen Total Risk Factor Score Risk Level Prophylaxis Regimen 0-1 Low Early ambulation 2 Moderate Order ONE of the following: *Sequential Compression Device (SCD) *Heparin 5000 units SQ BID 3-4 Higher Order ONE of the following medications: *Heparin 5000 units SQ TID *Enoxaparin/Lovenox 40 mg SQ daily (WT < 150 kg, CrCl > 30 mL/min) *Enoxaparin/Lovenox 30 mg SQ daily (WT < 150 kg, CrCl > 10-29 mL/min) *Enoxaparin/Lovenox 30 mg SQ BID (WT < 150 kg, CrCl > 30 mL/min) AND/OR *Sequential Compression Device (SCD) 5 or more Highest Order ONE of the following medications: *Heparin 5000 units SQ TID (Preferred with Epidurals) *Enoxaparin/Lovenox 40 mg SQ daily (WT < 150 kg, CrCl > 30 mL/min) *Enoxaparin/Lovenox 30 mg SQ daily (WT < 150 kg, CrCl > 10-29 mL/min) *Enoxaparin/Lovenox 30 mg SQ BID (WT < 150 kg, CrCl > 30 mL/min) AND *Sequential Compression Device (SCD) Assessment and Plan Problem List: (1) Pancreatitis ICD Code: K85.90 - Acute pancreatitis without necrosis or infection, unspecified Assessment and Plan 36 y/o male with a history of gerd presented to the ED with complaints of abdominal pain with nausea and vomiting for the last 2 days. Pancreatitis, acute Abdominal CT Very subtle stranding near the pancreatic head may reflect mild pancreatitis. Clinical correlation is recommended. -IVF for hydration -Pain management with IV morphine -Npo SIRS, wbc 15.1 -Azactam IV Q8hr -UA pending Constipation, no bm in 3 days -Dulcolax Supp daily Alcohol abuse -WA protocol DVT prophylaxis: SCDs Discussed Condition With Patient and RN Physician Certification 2 Midnight Certification Type: Admission for Inpatient Services Order for Inpatient Services The services are ordered in accordance with Medicare regulations or non- Medicare payer requirements, as applicable. In the case of services not specified as inpatient-only, they are appropriately provided as inpatient services in accordance with the 2-midnight benchmark. Estimated LOS (days): 2 days is the estimated time the patient will need to remain in the hospital, assuming treatment plan goals are met and no additional complications. Post-Hospital Plan: Home Ernestina Cantrell May 24, 2017 01:24
[2017-05-24] MEDS: SODIUM CHLOR 0.9% 1000 ML INJ 1,000 ML IV SCH ×3 (01:33→17:58)
[2017-05-24] MEDS ORDERED: MORPHINE SULFATE 4 MG/ML INJ IV PUSH PRN (04:15)
[2017-05-24] MEDS ORDERED: MORPHINE SULFATE 2 MG/ML INJ IV PRN (04:15)
[2017-05-24] MEDS ORDERED: BISACODYL 10 MG SUPP RECTAL PRN (04:15)
[2017-05-24] MEDS: MORPHINE SULFATE 4 MG/ML INJ IV PUSH PRN ×5 (06:19→21:34)
[2017-05-24] MEDS: ONDANSETRON HCL 4 MG/2 ML VIAL IVP PRN ×2 (06:21→15:12)
[2017-05-24] MEDS: THIAMINE HCL 100 MG TAB PO SCH (09:13)
[2017-05-24] MEDS: AZTREONAM INJ 2,000 MG in SODIUM CHLORIDE 0.9% INJ 100 ML IV SCH ×2 (09:13→17:58)
[2017-05-24] MEDS: SODIUM CHLORIDE 0.9% FLUSH 10 ML FLUSH IV FLUSH SCH ×2 (09:14→21:00)
[2017-05-24 09:23] LABS: HEMATOCRIT 43.3 % (39.0-51.0); HEMOGLOBIN 15.3 GM/DL (13.0-17.0); MEAN CELL VOLUME 104.7 FL (80.0-100.0); MEAN CORPUSCULAR HEMOGLOBIN 36.9 PG (27.0-34.0); MEAN CORPUSCULAR HGB CONC 35.3 % (32.0-36.0); MEAN PLATELET VOLUME 8.1 FL (7.0-11.0); PLATELET COUNT 259 TH/MM3 (150-450); RED BLOOD COUNT 4.13 MIL/MM3 (4.50-5.90); RED CELL DISTRIBUTION WIDTH 13.5 % (11.6-17.2); WHITE BLOOD COUNT 9.1 TH/MM3 (4.0-11.0)
[2017-05-24 09:50] LABS: ALBUMIN 2.9 GM/DL (3.4-5.0); ALT (GPT) 30 U/L (12-78); AST (GOT) 44 U/L (15-37); BICARBONATE 30.1 MEQ/L (21.0-32.0); BLOOD UREA NITROGEN 4 MG/DL (7-18); CALCIUM 8.4 MG/DL (8.5-10.1); CHLORIDE 105 MEQ/L (98-107); CREATININE 0.69 MG/DL (0.60-1.30); GLOMERULAR FILTRATION RATE 129 ML/MIN (>89); GLUCOSE,RANDOM 106 MG/DL (74-106); SODIUM (NA) 142 MEQ/L (136-145)
[2017-05-24 09:58] LABS: ALKALINE PHOSPHATASE 150 U/L (45-117); TOTAL BILIRUBIN ADULT 1.7 MG/DL (0.2-1.0); TOTAL PROTEIN 6.4 GM/DL (6.4-8.2)
--- NOTE | 2017-05-24 10:10 | HHI.PR ---
Subjective Remarks Follow-up visit mild pancreatitis, abdominal pain, constipation. Patient seen and examined today sitting in bed. Continues to complain of abdominal pain states that mid epigastric to right upper quadrant region radiating to his back and his left scapula and it has been an ongoing thing. Patient states that it has been months that he had nausea vomiting on and off. Complain some constipation has not had bowel movement 3 days. Also complains of numbness and tingling on his bilateral lower extremities. Otherwise denies chest pain, palpitations, shortness of breath, dyspnea. Reports chills Objective Vitals Vital Signs Date Time Temp Pulse Resp B/P (MAP) Pulse Ox O2 Delivery O2 Flow Rate FiO2 05/24/17 09:54 22 05/24/17 08:12 98.3 92 18 130/86 (101) 94 05/24/17 04:06 99.3 103 17 132/92 (105) 93 05/24/17 01:15 110 18 122/84 (97) 96 Room Air 05/24/17 00:30 99.0 112 20 121/72 (88) 95 Room Air 05/23/17 23:00 110 20 129/74 (92) 96 Room Air 05/23/17 21:00 112 20 122/63 (82) 99 Room Air 05/23/17 20:15 99.5 123 24 148/89 (108) 97 I/O 05/23/17 05/23/17 05/23/17 05/24/17 05/24/17 05/24/17 06:59 14:59 22:59 06:59 14:59 22:59 Intake Total 2201 ml Balance 2201 ml Intake IV Total 2201 ml # Voids 1 Result Diagram: 05/24/17 0913 05/24/17 0913 Imaging Last Impressions Chest X-Ray 05/23/17 0000 Signed Impressions: Service Date/Time: Tuesday, May 23, 2017 21:43 - CONCLUSION: 1. No acute cardiopulmonary disease. Fahad Thomas MD Abdomen/Pelvis CT 05/23/17 0000 Signed Impressions: Service Date/Time: Tuesday, May 23, 2017 23:55 - CONCLUSION: 1. Very subtle stranding near the pancreatic head may reflect mild pancreatitis. Clinical correlation is recommended. 2. Normal appendix. 3. Hepatomegaly with redemonstration of profound decrease in attenuation consistent with prominent hepatic steatosis. Des Willson MD Objective Remarks GENERAL: This is a well-nourished, well-developed patient, in no apparent distress. SKIN: Warm and dry HEENT: Normocephalic. Pupils equal round and reactive. Nose without bleeding. Airway patent. NECK: Trachea midline. No JVD. Supple. CARDIOVASCULAR: Regular rate and rhythm without murmurs, gallops, or rubs. RESPIRATORY: Clear to auscultation. Breath sounds equal bilaterally. No wheezes , rales, or rhonchi. GASTROINTESTINAL: Abdomen soft, nondistended. Bowel Sounds hypoactive. Tenderness to palpation midepigastric region to right upper quadrant. MUSCULOSKELETAL: Extremities without clubbing, cyanosis, or edema. NEUROLOGICAL: Awake and alert. Oriented to time, place, person. No focal neuro deficit. Moves all extremities. Normal speech. A/P Problem List: (1) Pancreatitis ICD Code: K85.90 - Acute pancreatitis without necrosis or infection, unspecified Assessment and Plan 36 y/o male with a history of gerd presented to the ED with complaints of abdominal pain with nausea and vomiting for the last 2 days. Pancreatitis, acute Abdominal CT Very subtle stranding near the pancreatic head may reflect mild pancreatitis. Clinical correlation is recommended. - IVF for hydration - Pain management with IV morphine - Patient continues to complain of abdominal pain midepigastric right upper quadrant radiating to the back and the left scapula. States he hasn't been drinking less drink was a week ago which was 2 beers. States that he was a heavy drinker before. Noting that heavy drinking constitutes of 2 beers and 2 shots of whiskey. - Check US abdomen gallbladder, rule out cholecystitis SIRS, wbc 15.1 - Azactam IV Q8hr - UA pending Alcohol abuse - CIWA protocol Constipation - Nothing by mouth for now. We will start bisacodyl suppository - If unable to have bowel movements will do edema DVT prophylaxis: Dorothea Saravia May 24, 2017 10:10
--- NOTE | 2017-05-24 10:54 | RADRPT ---
EXAM DATE/TIME: 05/24/2017 10:31 [facility] COMPARISON: CT ABDOMEN & PELVIS W CONTRAST, May 23, 2017, 23:55. INDICATIONS : Right upper quadrant pain. MEDICAL HISTORY : Pancreatitis. SURGICAL HISTORY : None. ENCOUNTER: Initial ACUITY: 1 month PAIN SCORE: 4/10 LOCATION: Right upper quadrant MEASUREMENTS: LIVER: 24.1 cm length COMMON DUCT: 6 mm RIGHT KIDNEY: 9.3 x 4.7 x 6.3 cm FINDINGS: LIVER: Severe increased echotexture without focal lesion or ductal dilatation. COMMON DUCT: No intraluminal mass or stone visualized. GALLBLADDER: Contains no stones, demonstrates no wall thickening or pericholecystic fluid. Possible sludge. PANCREAS: No abnormality is appreciated with ultrasound. Prior CT demonstrated mild inflammatory change around the pancreatic head. RIGHT KIDNEY: No evidence of hydronephrosis, stone, or mass. CONCLUSION: 1. Hepatomegaly with severe steatosis. 2. No other acute finding is identified. However, recent CT demonstrated mild inflammation at the barba creatic head and pancreaticoduodenal groove which could represent groove pancreatitis. Ramo Denton MD on May 24, 2017 at 10:50 Board Certified Radiologist. This report was verified electronically.
[2017-05-24] MEDS ORDERED: BISACODYL 10 MG SUPP RECTAL ONE (11:00)
--- NOTE | 2017-05-24 11:38 | EKG ---
Date Performed: 05/23/2017 Time Performed: 23:06:47 PTAGE: 36 years EKG: SINUS TACHYCARDIA WITH SHORT ME INTERVAL POSSIBLE LEFT ATRIAL ENLARGEMENT NONSPECIFIC ST & T-WAVE ABNORMALITY ABNORMAL RHYTHM ECG PREVIOUS TRACING : 11/21/2016 08.01 Compared to prior tracing, nonspecific ST-T wave changes a re now present. DOCTOR: Fahad Li Interpretating Date/Time 05/24/2017 11:57:17
[2017-05-25 00:35] VITALS: BP 140/80; PULSE 86; RESP 16; TEMP 98.8; O2SAT 86
[2017-05-25] MEDS: MORPHINE SULFATE 4 MG/ML INJ IV PUSH PRN ×2 (00:45→05:27)
[2017-05-25] MEDS: AZTREONAM INJ 2,000 MG in SODIUM CHLORIDE 0.9% INJ 100 ML IV SCH (01:05)
[2017-05-25 04:55] VITALS: BP 142/89; PULSE 98; RESP 16; TEMP 98; O2SAT 96
[2017-05-25] MEDS: SODIUM CHLOR 0.9% 1000 ML INJ 1,000 ML IV SCH (05:26)
[2017-05-25 07:04] LABS: BASOPHIL % 0.4 % (0.0-2.0); EOSINOPHIL # 0.2 TH/MM3 (0-0.4); HEMATOCRIT 41.2 % (39.0-51.0); HEMOGLOBIN 14.3 GM/DL (13.0-17.0); LYMPH % 16.4 % (9.0-44.0); LYMPHOCYTE # 1.4 TH/MM3 (1.0-4.8); MEAN CELL VOLUME 106.9 FL (80.0-100.0); MEAN CORPUSCULAR HEMOGLOBIN 37.1 PG (27.0-34.0); MEAN CORPUSCULAR HGB CONC 34.7 % (32.0-36.0); MEAN PLATELET VOLUME 8.4 FL (7.0-11.0); MONO % 8.9 % (0.0-8.0); MONOCYTE # 0.7 TH/MM3 (0-0.9); NEUT % 72.3 % (16.0-70.0); PLATELET COUNT 227 TH/MM3 (150-450); RED BLOOD COUNT 3.85 MIL/MM3 (4.50-5.90); RED CELL DISTRIBUTION WIDTH 13.4 % (11.6-17.2); WHITE BLOOD COUNT 8.2 TH/MM3 (4.0-11.0)
[2017-05-25 07:26] LABS: BICARBONATE 28.6 MEQ/L (21.0-32.0); CALCIUM 8.1 MG/DL (8.5-10.1); CREATININE 0.54 MG/DL (0.60-1.30)
[2017-05-25 08:32] VITALS: BP 116/69; PULSE 76; RESP 18; TEMP 98.7; O2SAT 93
[2017-05-25] MEDS: SODIUM CHLORIDE 0.9% FLUSH 10 ML FLUSH IV FLUSH SCH (09:00)
[2017-05-25] MEDS: THIAMINE HCL 100 MG TAB PO SCH (09:17)
[2017-05-25 10:21] LABS: ALBUMIN 2.8 GM/DL (3.4-5.0); DIRECT BILIRUBIN ADULT 0.7 MG/DL (0.0-0.2)
[2017-05-25 10:23] LABS: INDIRECT BILIRUBIN 0.8 MG/DL (0.0-0.8); TOTAL BILIRUBIN ADULT 1.5 MG/DL (0.2-1.0); TOTAL PROTEIN 6.1 GM/DL (6.4-8.2)
--- NOTE | 2017-05-25 10:36 | HHI.PR ---
Subjective Remarks Follow-up visit for pancreatitis, abdominal pain. Patient seen and examined today sitting in bed. Reports he is doing a lot better. Complaints of back pain. Her ledezma, tolerated by mouth diet clears last night and regular diet of breakfast this morning. Denies SOB/ dyspnea. Denies chest pain, palpitations, headaches, dizziness. Denies fevers, chills, n/v/d. Denies dysuria. Objective Vitals Vital Signs Date Time Temp Pulse Resp B/P (MAP) Pulse Ox O2 Delivery O2 Flow Rate FiO2 05/25/17 08:32 98.7 76 18 116/69 (85) 93 05/25/17 04:55 98.0 98 16 142/89 (106) 96 05/25/17 00:35 98.8 86 16 140/80 (100) 86 05/24/17 19:46 99.1 106 16 128/73 (91) 94 05/24/17 18:16 20 05/24/17 15:44 98.6 81 18 134/90 (105) 93 05/24/17 11:45 98.7 90 18 125/84 (98) 93 I/O 05/24/17 05/24/17 05/24/17 05/25/17 05/25/17 05/25/17 07:00 15:00 23:00 07:00 15:00 23:00 Intake Total 2201 ml 100 ml 1200 ml Output Total 600 ml 450 ml Balance 2201 ml -500 ml 750 ml Intake Oral 1200 ml IV Total 2201 ml 100 ml Output Urine Total 600 ml 450 ml # Voids 1 6 Result Diagram: 05/25/17 0610 05/25/17 0610 Imaging Last Impressions Gall Bladder Ultrasound 05/24/17 0000 Signed Impressions: Service Date/Time: Wednesday, May 24, 2017 10:31 - CONCLUSION: 1. Hepatomegaly with severe steatosis. 2. No other acute finding is identified. 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 Ramo Denton MD Chest X-Ray 05/23/17 0000 Signed Impressions: Service Date/Time: Tuesday, May 23, 2017 21:43 - CONCLUSION: 1. No acute cardiopulmonary disease. Fahad Thomas MD Abdomen/Pelvis CT 05/23/17 0000 Signed Impressions: Service Date/Time: Tuesday, May 23, 2017 23:55 - CONCLUSION: 1. Very subtle stranding near the pancreatic head may reflect mild pancreatitis. Clinical correlation is recommended. 2. Normal appendix. 3. Hepatomegaly with redemonstration of profound decrease in attenuation consistent with prominent hepatic steatosis. Des Willson MD Objective Remarks GENERAL: This is a well-nourished, well-developed patient, in no apparent distress. SKIN: Warm and dry HEENT: Normocephalic. Pupils equal round and reactive. Nose without bleeding. Airway patent. NECK: Trachea midline. No JVD. Supple. CARDIOVASCULAR: Regular rate and rhythm without murmurs, gallops, or rubs. RESPIRATORY: Clear to auscultation. Breath sounds equal bilaterally. No wheezes , rales, or rhonchi. GASTROINTESTINAL: Abdomen soft, nondistended. Bowel Sounds hypoactive. Nontender to palpation. MUSCULOSKELETAL: Extremities without clubbing, cyanosis, or edema. NEUROLOGICAL: Awake and alert. Oriented to time, place, person. No focal neuro deficit. Moves all extremities. Normal speech. Procedures None A/P Problem List: (1) Pancreatitis ICD Code: K85.90 - Acute pancreatitis without necrosis or infection, unspecified Assessment and Plan 36 y/o male with a history of gerd presented to the ED with complaints of abdominal pain with nausea and vomiting for the last 2 days. Pancreatitis, acute Abdominal CT Very subtle stranding near the pancreatic head may reflect mild pancreatitis. Clinical correlation is recommended. - IVF for hydration provided - Pain management change to oxycodone, IV morphine breakthrough - Patient continues to complain of abdominal pain midepigastric right upper quadrant radiating to the back and the left scapula. States he hasn't been drinking less drink was a week ago which was 2 beers. States that he was a heavy drinker before. Noting that heavy drinking constitutes of 2 beers and 2 shots of whiskey. - US abdomen gallbladder, 1. Hepatomegaly with severe steatosis. 2. No other acute findings identified. 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 - Patient has tolerated his diet without any adverse reaction. Discussed extensively results of diagnostic testing. Counseled with alcohol use. Verbalized understanding. - Plan to discharge home today SIRS, wbc 15.1 - Azactam IV Q8hr given. DC now - WBC 15.1 --> 9.1 --> 8.2 - Lactic acid 1.4 Hypokalemia Hypomagnesemia, mild - Potassium replacement, mag replacement - Patient is on Potassium 20MEQ from home will continue medication when DC Alcohol abuse - CIWA protocol Constipation - Bowel regimen DVT prophylaxis: SCDs Discharge Planning Plan to discharge home today. Dorothea Bowen May 25, 2017 10:36
[2017-05-25] MEDS ORDERED: THIA100 PO (11:59)
[2017-05-25] MEDS ORDERED: OXYC-392 PO (11:59)
[2017-05-25] MEDS ORDERED: POTASSIUM CHLORIDE 25 MEQ EFFERVESCENT TAB PO ONE (12:00)
[2017-05-25 12:30] VITALS: BP 139/88; PULSE 71; RESP 18; TEMP 99; O2SAT 95
--- NOTE | 2017-05-25 12:41 | HHI.DS ---
Discharge Summary Admission Date May 24, 2017 at 01:10 Discharge Date: May 25, 2017 Admitting Diagnosis Sepsis, dehydration, mild pancreatitis (1) Pancreatitis ICD Code: K85.90 - Acute pancreatitis without necrosis or infection, unspecified Procedures None Brief History - From Admission 36 y/o male with a history of gerd presented to the ED with complaints of abdominal pain with nausea and vomiting for the last 2 days. He states he has had fevers and chills at home. He describes the abdominal pain as intermittent, 8/10, with radiation to his back with associated nausea, worse with movement and better with morphine. He states he may have been diagnosed with pancreatitis in the past but is unsure. He states he quit drinking 1 month ago but had a few beers a couple days ago. He denies any chest pain or sob. CBC/BMP: 05/25/17 0610 05/25/17 0610 Significant Findings Laboratory Tests Test 05/23/17 21:35 05/24/17 01:00 05/24/17 09:13 05/25/17 06:10 White Blood Count 15.1 TH/MM3 (4.0-11.0) Hemoglobin 18.1 GM/DL (13.0-17.0) Mean Corpuscular Volume 103.4 FL (80.0-100.0) 104.7 FL (80.0-100.0) 106.9 FL (80.0-100.0) Mean Corpuscular Hemoglobin 37.0 PG (27.0-34.0) 36.9 PG (27.0-34.0) 37.1 PG (27.0-34.0) Neutrophils (%) (Auto) 83.4 % (16.0-70.0) 72.3 % (16.0-70.0) Lymphocytes (%) (Auto) 8.2 % (9.0-44.0) Neutrophils # (Auto) 12.6 TH/MM3 (1.8-7.7) Monocytes # (Auto) 1.2 TH/MM3 (0-0.9) Blood Urea Nitrogen 4 MG/DL (7-18) 4 MG/DL (7-18) 4 MG/DL (7-18) Random Glucose 140 MG/DL (74-106) Alkaline Phosphatase 198 U/L (45-117) 150 U/L (45-117) 142 U/L (45-117) Aspartate Amino Transf (AST/SGOT) 57 U/L (15-37) 44 U/L (15-37) 72 U/L (15-37) Total Bilirubin 2.0 MG/DL (0.2-1.0) 1.7 MG/DL (0.2-1.0) 1.5 MG/DL (0.2-1.0) Chloride Level 97 MEQ/L (98-107) Estimat Glomerular Filtration Rate 75 ML/MIN (>89) Troponin I LESS THAN 0.02 NG/ML Red Blood Count 4.13 MIL/MM3 (4.50-5.90) 3.85 MIL/MM3 (4.50-5.90) Albumin 2.9 GM/DL (3.4-5.0) 2.8 GM/DL (3.4-5.0) Calcium Level 8.4 MG/DL (8.5-10.1) 8.1 MG/DL (8.5-10.1) Monocytes (%) (Auto) 8.9 % (0.0-8.0) Creatinine 0.54 MG/DL (0.60-1.30) Potassium Level 3.0 MEQ/L (3.5-5.1) Direct Bilirubin 0.7 MG/DL (0.0-0.2) Total Protein 6.1 GM/DL (6.4-8.2) Imaging Last Impressions Gall Bladder Ultrasound 05/24/17 0000 Signed Impressions: Service Date/Time: Wednesday, May 24, 2017 10:31 - CONCLUSION: 1. Hepatomegaly with severe steatosis. 2. No other acute finding is identified. 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 Ramo Denton MD Chest X-Ray 05/23/17 0000 Signed Impressions: Service Date/Time: Tuesday, May 23, 2017 21:43 - CONCLUSION: 1. No acute cardiopulmonary disease. Fahad Thomas MD Abdomen/Pelvis CT 05/23/17 0000 Signed Impressions: Service Date/Time: Tuesday, May 23, 2017 23:55 - CONCLUSION: 1. Very subtle stranding near the pancreatic head may reflect mild pancreatitis. Clinical correlation is recommended. 2. Normal appendix. 3. Hepatomegaly with redemonstration of profound decrease in attenuation consistent with prominent hepatic steatosis. Des Willson MD PE at Discharge GENERAL: This is a well-nourished, well-developed patient, in no apparent distress. SKIN: Warm and dry HEENT: Normocephalic. Pupils equal round and reactive. Nose without bleeding. Airway patent. NECK: Trachea midline. No JVD. Supple. CARDIOVASCULAR: Regular rate and rhythm without murmurs, gallops, or rubs. RESPIRATORY: Clear to auscultation. Breath sounds equal bilaterally. No wheezes , rales, or rhonchi. GASTROINTESTINAL: Abdomen soft, nondistended. Bowel Sounds hypoactive. Nontender to palpation. MUSCULOSKELETAL: Extremities without clubbing, cyanosis, or edema. NEUROLOGICAL: Awake and alert. Oriented to time, place, person. No focal neuro deficit. Moves all extremities. Normal speech. Pt update on day of discharge Follow-up visit for pancreatitis, abdominal pain. Patient seen and examined today sitting in bed. Reports he is doing a lot better. Complaints of back pain. Her ledezma, tolerated by mouth diet clears last night and regular diet of breakfast this morning. Denies SOB/ dyspnea. Denies chest pain, palpitations, headaches, dizziness. Denies fevers, chills, n/v/d. Denies dysuria. Hospital Course Patient is a 36-year-old male with primary medical history of GERD who came into the ED for complaints of abdominal pain with nausea and vomiting 2 days. Patient was found to have acute pancreatitis. CT of the abdomen showed very subtle stranding near the pancreatic head may reflect mild pancreatitis. Clinical correlation is recommended. 2. Normal appendix. 3. Hepatomegaly with redemonstration of profound decrease that to depression consistent with prominent hepatic steatosis. During his hospital course he complained also of midepigastric to right upper quadrant pain where the ultrasound of the gallbladder was done and showed 1. Hepatomegaly with severe steatosis. 2. No other acute findings identified. Discuss with patient significantly avoid continued alcohol use, admitted to a low-fat diet. He tolerated by mouth diet clears and he was advanced to regular diet. He also tolerated. His white count initially was 15.1 and today it is 8.2. He also was treated with Azactam IV. Patient has clinically improved. Patient has met maximal benefits of hospitalization. Clinically stable for discharge. Pt Condition on Discharge: Stable Discharge Disposition: Discharge Home Discharge Time: <= 30 minutes Discharge Instructions DIET: Follow Instructions for: Low Fat Diet Additional Diet Instructions: Avoid alcohol use Activities you can perform: Regular-No Restrictions Activities to Avoid: Driving for 24 hrs Other Activity Instructions: No driving and operating of machinery with narcotic medication. Follow up Referrals: PCP Follow-up - 1 Week New Medications: Oxycodone (Oxycodone) 5 Mg Tab 5 MG PO Q6H PRN for Pain, #6 TAB Thiamine HCl (Gnp Vitamin B-1) 100 Mg Tab 100 MG PO DAILY for Nutritional Supplement, #30 TAB Continued Medications: Esomeprazole DR (Nexium) 20 Mg Capdr 20 MG PO DAILY, CAP 0 Refills Potassium Chloride ER (Potassium Chloride ER) 20 Meq Tab 20 MEQ PO DAILY for Electrolyte Replacement for 5 Days, #5 TAB 0 Refills Promethazine (Phenergan) 25 Mg Tablet 25 MG PO Q6H PRN for NAUSEA OR VOMITING, #15 TAB 0 Refills Dorothea Bowen May 25, 2017 12:41
--- NOTE | 2017-05-25 12:42 | HHI.DCPOC ---
Discharge Care Plan Diagnosis: (1) Pancreatitis (2) Dehydration (3) Elevated liver enzymes (4) Alcohol use Your Health Problems Are: Inflammation Additional Problems Abdominal Pain Goals to Promote Your Health * To prevent worsening of your condition and complications * To maintain your health at the optimal level Directions to Meet Your Goals Take your medications as prescribed Follow your dietary instruction Follow activity as directed Keep your appointments as scheduled Take your immunizations and boosters as scheduled If your symptoms worsen call your PCP, if no PCP go to Urgent Care Center or Emergency Room Smoking is Dangerous to Your Health. Avoid second hand smoke Call the 24-hour hour crisis hotline for domestic abuse at Dorothea Bowen May 25, 2017 12:42
[2017-05-25 13:09] VITALS: RESP 18
[2017-05-25] MEDS ORDERED: MAGNESIUM OXIDE 400 MG TAB PO ONE (14:15)
== END 2017-05-25 17:15 | disposition home or self-care (01) | DRG 440 ==
LOC: NEPD 20:03 → NEDA 05-24 00:47 → OBSVTOIN 05-24 01:10 → NEPGCP 05-24 03:21
PROVIDERS: ADMIT Hospitalist; ATTEND Hospitalist
DX: K85.90 Acute pancreatitis without necrosis or infection, unspecified (principal); K76.0 Fatty (change of) liver, not elsewhere classified; E83.42 Hypomagnesemia; E86.0 Dehydration; R16.0 Hepatomegaly, not elsewhere classified; F10.10 Alcohol abuse, uncomplicated; K22.70 Barrett's esophagus without dysplasia; K21.9 Gastro-esophageal reflux disease without esophagitis; K59.00 Constipation, unspecified; R06.02 Shortness of breath; R20.0 Anesthesia of skin; R20.2 Paresthesia of skin; E87.6 Hypokalemia; R74.8 Abnormal levels of other serum enzymes
CPT/HCPCS: 71045; 74177; 76705; 80048; 80053; 80076; 80307; 83605; 83690; 83735; 84484; 85025; 85027; 87040; 93005; 96361; 96365; 96366; 96375; J2060; J2270; J2405; J3411; J7030; Q9967

== ENCOUNTER 2017-06-26 06:45 | Inpatient (IN) | payer SELFPAY ==
[2017-06-26] VITALS (17 sets, daily range): BP systolic 122–172; BP diastolic 61–100; PULSE 100–140; RESP 17–28; TEMP 98.2–99.2; O2SAT 94–100
[~2017-06-26] VITALS: Ht 190.5 cm; Wt 86.6 kg
[~2017-06-26 06:45] MED LIST changes: +OXYC-392 PO; +THIA100 PO
[2017-06-26] MEDS ORDERED: SODIUM CHLOR 0.9% 1000 ML INJ 1,000 ML IV ONE ×3 (07:07→09:45)
[2017-06-26] MEDS ORDERED: SODIUM CHLOR 0.9% 1000 ML INJ 100 ML IV ONE (07:07)
[2017-06-26] MEDS ORDERED: PEPC20TA11 PO (07:09)
--- NOTE | 2017-06-26 07:14 | PD ---
HPI Chief Complaint: Abdominal Pain Time Seen by Provider: 07:05 Travel History International Travel<30 days: No Contact w/Intl Traveler<30days: No Traveled to known affect area: No History of Present Illness HPI 36-year-old male brought in by ambulance for evaluation of abdominal pain. Apparently while in route to the hospital the patient had a grand mal seizure that lasted for about a minute and a half. 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 The patient tells me he has not had a drink of alcohol in 4 days. He complains of diffuse abdominal pain described as sharp/pressure, constant, severe. Denies history of abdominal surgeries. The patient also had several episodes of vomiting while being transported by EMS. He is unsure if he has had a fever. No diarrhea. Admits to smoking some marijuana last night. Denies any other illicit drugs. PFSH Past Medical History Anxiety: Yes Depression: Yes Cardiovascular Problems: Yes Chest Pain: Yes Diminished Hearing: No Gastrointestinal Disorders: Yes (VOMITING FOR 1 YEAR, IBS) Headaches: Yes Neurologic: Yes Psychiatric: Yes Respiratory: Yes Migraines: Yes Pancreatitis: Yes Past Surgical History Ear Surgery: Yes (tubes when a kid) Other Surgery: Yes Social History Alcohol Use: Yes (DAILY) Tobacco Use: No Substance Use: No (DENIES) Allergies-Medications (Allergen,Severity, Reaction): Coded Allergies: penicillin G (Verified Allergy, Unknown, 06/26/17) Reported Meds & Prescriptions Reported Meds & Active Scripts Active Reported Pepcid AC (Famotidine) 20 Mg Tablet Unknown Dose PO DAILY Review of Systems Except as stated in HPI: all other systems reviewed are Neg Physical Exam Narrative GENERAL: Well-developed, well-nourished, diaphoretic, uncomfortable SKIN: Focused skin assessment warm/diaphoretic HEAD: Atraumatic. Normocephalic. EYES: Pupils equal and round. No scleral icterus. No injection or drainage. ENT: Mucous membranes pink and dry. NECK: Trachea midline. No JVD. CARDIOVASCULAR: Tachycardic, regular, rate 130. RESPIRATORY: No accessory muscle use. Clear to auscultation. Breath sounds equal bilaterally. GASTROINTESTINAL: Abdomen soft, nondistended. Moderate diffuse tenderness without peritoneal signs. MUSCULOSKELETAL: No obvious deformities. No clubbing. No cyanosis. No edema. NEUROLOGICAL: Awake and alert. No obvious cranial nerve deficits. Motor grossly within normal limits. Normal speech. PSYCHIATRIC: Appropriate mood and affect; insight and judgment normal. Data Data Last Documented VS Vital Signs Date Time Temp Pulse Resp B/P (MAP) Pulse Ox O2 Delivery O2 Flow Rate FiO2 06/26/17 09:15 104 22 161/95 (117) 96 Room Air 06/26/17 07:11 2.00 06/26/17 06:50 98.2 Orders Orders Sepsis Workup Initiated (06/26/17 ) Complete Blood Count With Diff (06/26/17 07:07) Comprehensive Metabolic Panel (06/26/17 07:07) Prothrombin Time / Inr (Pt) (06/26/17 07:07) Act Partial Throm Time (Ptt) (06/26/17 07:07) Lactic Acid Sepsis Protocol (06/26/17 07:07) Lipase (06/26/17 07:07) Urinalysis - C+S If Indicated (06/26/17 07:07) Influenzae A/B Antigen (06/26/17 07:07) Blood Culture (06/26/17 07:07) Chest, Single Ap (06/26/17 07:07) Blood Glucose (06/26/17 07:07) Ecg Monitoring (06/26/17 07:07) Iv Access Insert/Monitor (06/26/17 07:07) Oximetry (06/26/17 07:07) Oxygen Administration (06/26/17 07:07) Sodium Chlor 0.9% 1000 Ml Inj (Ns 1000 M (06/26/17 07:07) Sodium Chlor 0.9% 1000 Ml Inj (Ns 1000 M (06/26/17 07:07) Sodium Chlor 0.9% 1000 Ml Inj (Ns 1000 M (06/26/17 07:07) Alcohol (Ethanol) (06/26/17 07:07) Drug Screen, Random Urine (06/26/17 07:07) Lorazepam Inj (Ativan Inj) (06/26/17 07:15) Ct Brain W/O Iv Contrast(Rout) (06/26/17 ) Magnesium (Mg) (06/26/17 07:16) Ondansetron Inj (Zofran Inj) (06/26/17 07:30) Ct Abd/Pel W Iv Contrast(Rout) (06/26/17 ) Lorazepam Inj (Ativan Inj) (06/26/17 07:45) Iohexol 350 Inj (Omnipaque 350 Inj) (06/26/17 08:57) Lactic Acid Sepsis Protocol (06/26/17 09:31) Lorazepam Inj (Ativan Inj) (06/26/17 09:45) Sodium Chlor 0.9% 1000 Ml Inj (Ns 1000 M (06/26/17 09:45) Basic Metabolic Panel (Bmp) (06/26/17 10:09) Alcohol Withdrawal Asmt-Ciwa ONCE (06/26/17 10:09) Lorazepam (Ativan) (06/26/17 10:15) Lorazepam Inj (Ativan Inj) (06/26/17 10:15) Lorazepam (Ativan) (06/26/17 10:15) Lorazepam Inj (Ativan Inj) (06/26/17 10:15) Lorazepam Inj (Ativan Inj) (06/26/17 10:15) Lorazepam Inj (Ativan Inj) (06/26/17 10:15) Labs Laboratory Tests Test 06/26/17 07:05 06/26/17 07:10 06/26/17 09:10 White Blood Count 14.5 TH/MM3 Red Blood Count 4.78 MIL/MM3 Hemoglobin 17.5 GM/DL Hematocrit 52.4 % Mean Corpuscular Volume 109.5 FL Mean Corpuscular Hemoglobin 36.5 PG Mean Corpuscular Hemoglobin Concent 33.3 % Red Cell Distribution Width 15.7 % Platelet Count 180 TH/MM3 Mean Platelet Volume 9.1 FL Neutrophils (%) (Auto) 71.9 % Lymphocytes (%) (Auto) 16.9 % Monocytes (%) (Auto) 10.8 % Eosinophils (%) (Auto) 0.0 % Basophils (%) (Auto) 0.4 % Neutrophils # (Auto) 10.4 TH/MM3 Lymphocytes # (Auto) 2.4 TH/MM3 Monocytes # (Auto) 1.6 TH/MM3 Eosinophils # (Auto) 0.0 TH/MM3 Basophils # (Auto) 0.1 TH/MM3 CBC Comment DIFF FINAL Differential Comment Prothrombin Time 13.4 SEC Prothromb Time International Ratio 1.3 RATIO Activated Partial Thromboplast Time 28.9 SEC Blood Urea Nitrogen 3 MG/DL Creatinine 1.43 MG/DL Random Glucose 171 MG/DL Total Protein 8.9 GM/DL Albumin 4.3 GM/DL Calcium Level 10.0 MG/DL Alkaline Phosphatase 262 U/L Aspartate Amino Transf (AST/SGOT) 175 U/L Alanine Aminotransferase (ALT/SGPT) 66 U/L Total Bilirubin 3.4 MG/DL Sodium Level 141 MEQ/L Potassium Level 3.5 MEQ/L Chloride Level 99 MEQ/L Carbon Dioxide Level 10.3 MEQ/L Anion Gap 32 MEQ/L Estimat Glomerular Filtration Rate 56 ML/MIN Magnesium Level 2.3 MG/DL Lipase 346 U/L Ethyl Alcohol Level LESS THAN 3 MG/DL Lactic Acid Level 19.0 mmol/L Urine Color YELLOW Urine Turbidity CLEAR Urine pH 6.0 Urine Specific Bath 1.028 Urine Protein TRACE mg/dL Urine Glucose (UA) TRACE mg/dL Urine Ketones 10 mg/dL Urine Occult Blood TRACE Urine Nitrite NEG Urine Bilirubin NEG Urine Urobilinogen LESS THAN 2.0 MG/DL Urine Leukocyte Esterase NEG Urine RBC LESS THAN 1 /hpf Urine WBC LESS THAN 1 /hpf Urine Squamous Epithelial Cells 1 /hpf Urine Hyaline Casts 8 /lpf Urine Mucus FEW /lpf Microscopic Urinalysis Comment CATH-CULT NOT IND Urine Opiates Screen NEG Urine Barbiturates Screen NEG Urine Amphetamines Screen NEG Urine Benzodiazepines Screen NEG Urine Cocaine Screen NEG Urine Cannabinoids Screen NEG MDM Medical Decision Making Medical Screen Exam Complete: Yes Emergency Medical Condition: Yes Medical Record Reviewed: Yes Differential Diagnosis Sepsis, pancreatitis, hepatobiliary disease, alcohol withdrawal, metabolic abnormality Narrative Course Initial vital signs show heart rate 125, blood pressure 172/100, pulse ox 95% on room air, oral temperature 98.2F. CBC: WBC 40.5, hemoglobin 17.5, hematocrit 52.4, MCV 109.5, platelets 180. CMP is remarkable for bicarb 10.3, anion gap 32, creatinine 1.43, GFR 56, random glucose 171, AST 175, alk phos 262. Lactic acid is 19. Alcohol level is negative. Chest x-ray: No acute cardiopulmonary disease. CT head: Negative noncontrast CT brain. CT abdomen pelvis: CONCLUSION: 1. Mild dilation of the collecting system of the left kidney is a new finding when compared to 05/23/17. No calcified stones and no ureteral dilation. If there are symptoms referrable to left renal obstruction, may consider performing Lasix renogram. 2. Severe steatosis the liver, mild induration of the mesenteric/ retroperitoneal fat, and small hiatus hernia, stable Patient was provided 3 L normal saline IV and 3 1 mg doses of Ativan. He remains tachycardic with a heart rate in the 120s and is tremulous. He likely experienced an alcohol withdrawal seizure and is currently in alcohol withdrawals. His abdominal pain and nausea is improved with Zofran and he is requesting Gatorade which he will be given. Case discussed with owner [employer] Dr. Vera who will admit the patient to his service. Critical Care Narrative Aggregate critical care time was 35 minutes. Time to perform other separately billable procedures was not included in the critical care time. My time did not include minutes spent treating any other patients simultaneously or on activities that did not directly contribute to the patient's treatment. The services I provided to this patient were to treat and/or prevent clinically significant deterioration that could result in: , permanent disability, delirium tremens I provided critical care services requiring my management, as noted below: Chart data review, documentation time, medication orders and management, vital sign assessments/reviewing monitor data, ordering and reviewing lab tests, ordering and interpreting/reviewing x-rays and diagnostic studies, care of the patient and discussion of the patient with the admitting physicians. Diagnosis Primary Impression: Alcohol withdrawal seizure Qualified Codes: F10.239 - Alcohol dependence with withdrawal, unspecified; R56.9 - Unspecified convulsions Additional Impression: Lactic acidosis Admitting Information Admitting Physician Requests: it Jean Holcomb MD Jun 26, 2017 07:14
[2017-06-26] MEDS ORDERED: LORazepam 2 MG/ML VIAL IV PUSH ONE ×3 (07:15→09:45)
[2017-06-26] MEDS ORDERED: ONDANSETRON HCL 4 MG/2 ML VIAL IV PUSH ONE (07:30)
[2017-06-26 07:44] LABS: AUTOMATED NEUTROPHIL # 10.4 TH/MM3 (1.8-7.7); BASOPHIL # 0.1 TH/MM3 (0-0.2); BASOPHIL % 0.4 % (0.0-2.0); HEMATOCRIT 52.4 % (39.0-51.0); HEMOGLOBIN 17.5 GM/DL (13.0-17.0); LYMPH % 16.9 % (9.0-44.0); LYMPHOCYTE # 2.4 TH/MM3 (1.0-4.8); MEAN CELL VOLUME 109.5 FL (80.0-100.0); MEAN CORPUSCULAR HEMOGLOBIN 36.5 PG (27.0-34.0); MEAN CORPUSCULAR HGB CONC 33.3 % (32.0-36.0); MEAN PLATELET VOLUME 9.1 FL (7.0-11.0); MONO % 10.8 % (0.0-8.0); MONOCYTE # 1.6 TH/MM3 (0-0.9); NEUT % 71.9 % (16.0-70.0); PLATELET COUNT 180 TH/MM3 (150-450); RED BLOOD COUNT 4.78 MIL/MM3 (4.50-5.90); RED CELL DISTRIBUTION WIDTH 15.7 % (11.6-17.2); WHITE BLOOD COUNT 14.5 TH/MM3 (4.0-11.0)
[2017-06-26 07:56] LABS: INTERNATIONAL NORMALIZED RATIO 1.3 RATIO; PROTHROMBIN TIME - PATIENT 13.4 SEC (9.8-11.6)
[2017-06-26 08:02] LABS: ALKALINE PHOSPHATASE 262 U/L (45-117); TOTAL BILIRUBIN ADULT 3.4 MG/DL (0.2-1.0); TOTAL PROTEIN 8.9 GM/DL (6.4-8.2)
--- NOTE | 2017-06-26 08:03 | RADRPT ---
EXAM DATE/TIME: 06/26/2017 07:46 [facility] COMPARISON: CHEST SINGLE AP, May 23, 2017, 21:43. INDICATIONS : Abdomen pain for one month with vomiting. MEDICAL HISTORY : Crohn's disease. pancreatitis. ibs. SURGICAL HISTORY : Tonsillectomy. Adenoidectomy. ENCOUNTER: Initial ACUITY: 1 month PAIN SCORE: 9/10 LOCATION: Bilateral Abdomen FINDINGS: The cardiac silhouette is enlarged in transverse diameter. The lungs are free of acute parenchymal op acity. No effusions are identified. CONCLUSION: No acute cardiopulmonary disease. Fahad Thomas MD on June 26, 2017 at 7:58 Board Certified Radiologist. This report was verified electronically.
[2017-06-26 08:09] LABS: ALBUMIN 4.3 GM/DL (3.4-5.0); ALT (GPT) 66 U/L (12-78); AST (GOT) 175 U/L (15-37); BICARBONATE 10.3 MEQ/L (21.0-32.0); BLOOD UREA NITROGEN 3 MG/DL (7-18); CHLORIDE 99 MEQ/L (98-107); CREATININE 1.43 MG/DL (0.60-1.30); GLOMERULAR FILTRATION RATE 56 ML/MIN (>89); GLUCOSE,RANDOM 171 MG/DL (74-106); SODIUM (NA) 141 MEQ/L (136-145)
[2017-06-26] MEDS ORDERED: IOHEXOL 350 MG/ML 10 ML VIAL (for RAD DIAG) IVCONTRAST ONE (08:57)
--- NOTE | 2017-06-26 09:27 | RADRPT ---
EXAM DATE/TIME: 06/26/2017 08:36 [facility] COMPARISON: No previous studies available for comparison. INDICATIONS : Seizures, altered mental status RADIATION DOSE: 51.91 CTDIvol (mGy) MEDICAL HISTORY : Cardiovascular disease. Pancreatitis. Seizures. SURGICAL HISTORY : None. ENCOUNTER: Initial ACUITY: 2 days PAIN SCALE: 3/10 LOCATION: cranial TECHNIQUE: Multiple contiguous axial images were obtained of the head. Using automated exposure control and adj ustment of the mA and/or kV according to patient size, radiation dose was kept as low as reasonably a chievable to obtain optimal diagnostic quality images. DICOM format image data is available electro nically for review and comparison. FINDINGS: CEREBRUM: The ventricles are normal for age. No evidence of midline shift, mass lesion, hemorrhage or acute in farction. No extra-axial fluid collections are seen. POSTERIOR FOSSA: The cerebellum and brainstem are intact. The 4th ventricle is midline. The cerebellopontine angle i s unremarkable. EXTRACRANIAL: The visualized portion of the orbits is intact. SKULL: The calvaria is intact. No evidence of skull fracture. CONCLUSION: 1. Negative noncontrast CT brain. Montez Almaguer MD on June 26, 2017 at 9:24 Board Certified Radiologist. This report was verified electronically.
--- NOTE | 2017-06-26 09:38 | RADRPT ---
EXAM DATE/TIME: 06/26/2017 08:40 [facility] COMPARISON: CT ABDOMEN & PELVIS W CONTRAST, May 23, 2017, 23:55. INDICATIONS : Seizures, abdominal pain IV CONTRAST: 93 cc Omnipaque 350 (iohexol) IV ORAL CONTRAST: No oral contrast ingested. RADIATION DOSE: 11.58 CTDIvol (mGy) MEDICAL HISTORY : Cardiovascular disease. Pancreatitis. Seizures. SURGICAL HISTORY : None. ENCOUNTER: Initial ACUITY: 2 days PAIN SCALE: 5/10 LOCATION: Bilateral Abdomen TECHNIQUE: Volumetric scanning of the abdomen and pelvis was performed. Using automated exposure control and ad justment of the mA and/or kV according to patient size, radiation dose was kept as low as reasonably achievable to obtain optimal diagnostic quality images. DICOM format image data is available electro nically for review and comparison. FINDINGS: LOWER LUNGS: The visualized lower lungs are clear. No hiatus hernia, stable. LIVER: Diffuse severe fatty change similar to prior CT. No focal lesions. No calcified gallstones. SPLEEN: Normal size without lesion. PANCREAS: Within normal limits. KIDNEYS: Normal in size and shape. No calcified stones. No mass. The collecting system of the left kidney i s mildly dilated, a new finding from prior exam. The left ureter is normal in dimension. The collec ting system on the right side is normal in appearance.. ADRENAL GLANDS: Within normal limits. VASCULAR: There is no aortic aneurysm. BOWEL/MESENTERY: No dilated loops of small or large bowel. There is induration of the posterior mesentery anterior to the IVC and aorta, similar to prior examination. No focal free fluid is seen. ABDOMINAL WALL: Within normal limits. RETROPERITONEUM: There is no lymphadenopathy. BLADDER: No wall thickening or mass. REPRODUCTIVE: Within normal limits. INGUINAL: There is no lymphadenopathy or hernia. MUSCULOSKELETAL: Within normal limits for patient age. CONCLUSION: 1. Mild dilation of the collecting system of the left kidney is a new finding when compared to 8. No calcified stones and no ureteral dilation. If there are symptoms referrable to left renal obs truction, may consider performing Lasix renogram. 2. Severe steatosis the liver, mild induration of the mesenteric/retroperitoneal fat, and small hiatu s hernia, stable Montez Almaguer MD on June 26, 2017 at 9:25 Board Certified Radiologist. This report was verified electronically.
[2017-06-26 09:42] LABS: BILIRUBIN, URINE NEG (NEG); BLOOD, URINE TRACE (NEG); GLUCOSE,URINE TRACE mg/dL (NEG); HYALINE CAST, URINE 8 /lpf (RARE); KETONE, URINE 10 mg/dL (NEG); MUCUS URINE FEW /lpf (OCC); NITRITE,URINE NEG (NEG); SQUAMOUS EPITHELIAL CELL URINE 1 /hpf (0-5); URINE COLOR YELLOW (YELLW/STRAW); URINE LEUKOCYTE ESTERASE NEG (NEG)
[2017-06-26] MEDS ORDERED: LACTULOSE SYRUP 20 GM/30 ML CUP PO PRN (10:15)
[2017-06-26] MEDS ORDERED: SENNOSIDES 8.6 MG TAB PO PRN (10:15)
[2017-06-26] MEDS ORDERED: LORazepam 2 MG TAB PO PRN (10:15)
[2017-06-26] MEDS ORDERED: RESP: ALBUTEROL 2.5 MG/IPRATROPIUM 0.5 MG NEB (PRN) INH (10:15)
[2017-06-26] MEDS ORDERED: BISACODYL 10 MG SUPP RECTAL PRN (10:15)
[2017-06-26] MEDS ORDERED: METOCLOPRAMIDE HCL 10 MG/2 ML VIAL IV PUSH PRN (10:15)
[2017-06-26] MEDS ORDERED: MISCELLANEOUS NURSING INFORMATION XX SCH (10:15)
[2017-06-26] MEDS ORDERED: CHLORHEXIDINE GLUCONATE 2 % 1 PACK (2 CLOTHS) TOP PRN (10:15)
[2017-06-26] MEDS ORDERED: SODIUM CHLORIDE 0.9% FLUSH 10 ML FLUSH IV FLUSH PRN (10:15)
[2017-06-26] MEDS ORDERED: MAGNESIUM HYDROXIDE SUSP 30 ML CUP PO PRN (10:15)
[2017-06-26] MEDS ORDERED: ACETAMINOPHEN 325 MG TAB PO PRN (10:15)
[2017-06-26] MEDS ORDERED: LORazepam 2 MG/ML VIAL IV PUSH PRN ×3 (10:15)
[2017-06-26] MEDS: PANTOPRAZOLE SODIUM 40 MG VIAL IV PUSH SCH (10:51)
[2017-06-26] MEDS: D5-1/2 NS + KCL 20 MEQ INJ 1,000 ML IV SCH ×2 (10:52→22:01)
[2017-06-26] MEDS: LORazepam 2 MG/ML VIAL IV PUSH PRN ×2 (11:19→14:31)
[2017-06-26] MEDS ORDERED: oxyCODONE/ACETAMINOPHEN 10 MG/325 MG TAB PO STA (11:35)
[2017-06-26 11:59] LABS: BICARBONATE 20.1 MEQ/L (21.0-32.0); CALCIUM 8.1 MG/DL (8.5-10.1); CREATININE 0.93 MG/DL (0.60-1.30)
[2017-06-26] MEDS ORDERED: THIAMINE INJ 100 MG in SODIUM CHLORIDE 0.9% INJ 100 ML IV SCH (12:00)
[2017-06-26] MEDS ORDERED: MULTIVITAMIN INJ 10 ML, FOLIC ACID INJ 1 MG in SODIUM CHLORID 0.9% 500 ML INJ 500 ML IV SCH (12:00)
[2017-06-26 14:16] LABS: LACTIC ACID SEPSIS PROTOCOL 3.4 mmol/L (0.4-2.0)
--- NOTE | 2017-06-26 14:38 | PD.CONS ---
HPI History of Present Illness This is a 36 year old M with history significant for ETOH dependence who presented to the ER with complaints of abdominal pain. Pt was transported by [facility], according to ER notes pt had a witnessed seizure while in route. Pt denies history of seizures. Pt admits to previously drinking 6-8 beers a night , states he stopped for about a week but then had two beers four days ago when he went out to eat with friends. Pt reports abdominal pain is diffuse throughout abdomen, intermittent, worse with bending over. Does not notice any other aggravating or alleviating factors. States pain feels like he is being punched in the stomach. Associated nausea and vomiting, has not been able to keep anything down. Per RN has not vomited since he's been here. Pt reports a small tinge or BRB in the emesis. States acid reflux is well controlled with Prilosec at home. Reports normal BMs, last one while in ER. Last EGD and colonoscopy in October of last year --> Short segment of possible Howe's esophagus, chronic gastritis, normal colon. (Yeni Amador) [facility] Coded Allergies: penicillin G (Verified Allergy, Unknown, 06/26/17) Social History ETOH- previously drinking 6-8 beers a day, states stopped for a week and then had two beers four days ago when he went out to eat (Yeni Amador) Review of Systems Gastrointestinal: COMPLAINS OF: Abdominal pain, Nausea, Vomiting, Hematemesis, DENIES: Black stools, Bloody stools, Constipation, Diarrhea, Difficulty Swallowing, Odynophagia, Swelling of Abdomen, Heartburn (Yeni Amador) GI Exam Vitals I&O Vital Signs Date Time Temp Pulse Resp B/P (MAP) Pulse Ox O2 Delivery O2 Flow Rate FiO2 06/26/17 13:43 06/26/17 12:30 120 23 131/61 (84) 95 Nasal Cannula 2.00 06/26/17 11:30 112 18 152/93 (112) 96 Nasal Cannula 2.00 06/26/17 11:11 110 21 159/97 (117) Nasal Cannula 2.00 06/26/17 10:30 118 18 134/72 (92) 94 Room Air 06/26/17 09:15 104 22 161/95 (117) 96 Room Air 06/26/17 08:00 122 26 152/90 (110) 95 Room Air 06/26/17 07:11 96 Room Air 06/26/17 07:11 Nasal Cannula 2.00 06/26/17 07:05 140 28 158/73 (101) 96 Room Air 06/26/17 06:50 98.2 125 20 172/100 (124) 95 I/O 06/25/17 06/25/17 06/25/17 06/26/17 06/26/17 06/26/17 07:00 15:00 23:00 07:00 15:00 23:00 Intake Total 3201 ml Output Total 1400 ml Balance 1801 ml Intake IV Total 3201 ml Output Urine Total 1400 ml # Voids 3 Imaging Last Impressions Chest X-Ray 06/26/17 0707 Signed Impressions: Service Date/Time: Monday, June 26, 2017 07:46 - CONCLUSION: No acute cardiopulmonary disease. Fahad Thomas MD Head CT 06/26/17 0000 Signed Impressions: Service Date/Time: Monday, June 26, 2017 08:36 - CONCLUSION: 1. Negative noncontrast CT brain. Montez Almaguer MD Abdomen/Pelvis CT 06/26/17 0000 Signed Impressions: Service Date/Time: Monday, June 26, 2017 08:40 - CONCLUSION: 1. Mild dilation of the collecting system of the left kidney is a new finding when compared to 05/23/17. No calcified stones and no ureteral dilation. If there are symptoms referrable to left renal obstruction, may consider performing Lasix renogram. 2. Severe steatosis the liver, mild induration of the mesenteric/retroperitoneal fat, and small hiatus hernia, stable Montez Almaguer MD Laboratory Test 06/26/17 07:05 06/26/17 07:10 06/26/17 09:10 06/26/17 11:00 White Blood Count 14.5 TH/MM3 Red Blood Count 4.78 MIL/MM3 Hemoglobin 17.5 GM/DL Hematocrit 52.4 % Mean Corpuscular Volume 109.5 FL Mean Corpuscular Hemoglobin 36.5 PG Mean Corpuscular Hemoglobin Concent 33.3 % Red Cell Distribution Width 15.7 % Platelet Count 180 TH/MM3 Mean Platelet Volume 9.1 FL Neutrophils (%) (Auto) 71.9 % Lymphocytes (%) (Auto) 16.9 % Monocytes (%) (Auto) 10.8 % Eosinophils (%) (Auto) 0.0 % Basophils (%) (Auto) 0.4 % Neutrophils # (Auto) 10.4 TH/MM3 Lymphocytes # (Auto) 2.4 TH/MM3 Monocytes # (Auto) 1.6 TH/MM3 Eosinophils # (Auto) 0.0 TH/MM3 Basophils # (Auto) 0.1 TH/MM3 CBC Comment DIFF FINAL Differential Comment Prothrombin Time 13.4 SEC Prothromb Time International Ratio 1.3 RATIO Activated Partial Thromboplast Time 28.9 SEC Blood Urea Nitrogen 3 MG/DL 2 MG/DL Creatinine 1.43 MG/DL 0.93 MG/DL Random Glucose 171 MG/DL 126 MG/DL Total Protein 8.9 GM/DL Albumin 4.3 GM/DL Calcium Level 10.0 MG/DL 8.1 MG/DL Alkaline Phosphatase 262 U/L Aspartate Amino Transf (AST/SGOT) 175 U/L Alanine Aminotransferase (ALT/SGPT) 66 U/L Total Bilirubin 3.4 MG/DL Sodium Level 141 MEQ/L 140 MEQ/L Potassium Level 3.5 MEQ/L 4.0 MEQ/L Chloride Level 99 MEQ/L 108 MEQ/L Carbon Dioxide Level 10.3 MEQ/L 20.1 MEQ/L Anion Gap 32 MEQ/L 12 MEQ/L Estimat Glomerular Filtration Rate 56 ML/MIN 91 ML/MIN Magnesium Level 2.3 MG/DL Lipase 346 U/L Ethyl Alcohol Level LESS THAN 3 MG/DL Lactic Acid Level 19.0 mmol/L Urine Color YELLOW Urine Turbidity CLEAR Urine pH 6.0 Urine Specific [place] 1.028 Urine Protein TRACE mg/dL Urine Glucose (UA) TRACE mg/dL Urine Ketones 10 mg/dL Urine Occult Blood TRACE Urine Nitrite NEG Urine Bilirubin NEG Urine Urobilinogen LESS THAN 2.0 MG/DL Urine Leukocyte Esterase NEG Urine RBC LESS THAN 1 /hpf Urine WBC LESS THAN 1 /hpf Urine Squamous Epithelial Cells 1 /hpf Urine Hyaline Casts 8 /lpf Urine Mucus FEW /lpf Microscopic Urinalysis Comment CATH-CULT NOT IND Urine Opiates Screen NEG Urine Barbiturates Screen NEG Urine Amphetamines Screen NEG Urine Benzodiazepines Screen NEG Urine Cocaine Screen NEG Urine Cannabinoids Screen NEG Test 06/26/17 13:25 Date/Time Source Procedure Growth Status 06/26/17 07:10 Blood Peripheral Aerobic Blood Culture Pending Received 06/26/17 07:10 Blood Peripheral Anaerobic Blood Culture Pending Received 06/26/17 07:40 Nasal Washing Influenza Types A,B Antigen (RIVER) - Final NEGATIVE FOR FLU A AND B ANTIGEN.... Complete Physical Examination HEENT: Normocephalic; atraumatic; (+) icterus CHEST: Even/unlabored CARDIAC: RRR ABDOMEN: Soft, nondistended, nontender; bowel sounds active SKIN: Normal; no rash; no jaundice. [employer] SU[employer]ONTRACTOR: No focal deficits; alert and oriented times three. (Yeni Amador) Assessment and Plan Plan Assessment: - Elevated LFTs consistent with ETOH. Currently AST-175 ALT-66 T bili-3.4 Alk phos-262. DF-10. Previous liver work up in October 2016 --> Hepatitis panel negative, ARTURO, ASMA negative. AMA < 20. A1A-93 Ceruloplasmin-19. US gallbladder (Apr 2017) --> Hepatomegaly with severe steatosis. - Abdominal pain, diffuse, states worse with bending over, describes it as someone punching him in the stomach, intermittent. Denies any other aggravating or alleviating factors EGD and colonoscopy in October of last year --> Short segment of possible Howe's esophagus, chronic gastritis, normal colon. CT abdomen and pelvis --> Severe steatosis of the liver, mild induration of the mesenteric/retroperitoneal fat and small hiatus hernia, stable - Seizure, new onset, denies history of- ? ETOH withdraw- neurology consulted - Elevated lactic- probably secondary to seizure Plan: Ammonia level Monitor LFTs Iron panel- not previously done with liver ERNANDEZ Nausea medication PRN Alcohol withdraw protocol Further recommendations based on clinical course Pt has been seen and examined by myself and Dr. Sung and this note is written on his behalf (Yeni Amador) Physician Comments Seen and examined with LASHAWN, in alcohol withdrawal. Previous egd/colonoscopy reviewed with pt. ? repeat egd depending upon clinical course. Thank you (Luis Sung MD) Yeni Amador Jun 26, 2017 14:38 Luis Sung MD Jun 26, 2017 15:50
[2017-06-26 16:29] LABS: % SATURATION IRON PROFILE 89.2 % (20-50); IRON (FE) 231 MCG/DL (65-175); TOTAL IRON BINDING CAPACITY 259 MCG/DL (250-450)
[2017-06-26 16:32] LABS: FERRITIN 813 NG/ML (26-388)
--- NOTE | 2017-06-26 16:47 | MB ---
cc: Fahad Levy MD DATE: 06/26/2017 HISTORY OF PRESENT ILLNESS: Mr. Ibanez is a 36-year-old man with a history of alcohol use, although it is unclear how strong an alcoholic he is. He says he does not drink every day, although he used to, but no longer. He has had alcoholic pancreatitis in October of last year and he is admitted now with a seizure. He tells me he has got some hypertension in the past, some liver failure, possibly an ulcer. He does not remember much about the episode or the ride to the hospital. According to the ER reports, he was brought in for abdominal pain and en route to the hospital had a grand mal seizure. He has not had a drink in 4 days. Says he has not been drinking every day, had some marijuana last night. ALLERGIES: ALLERGIC TO PENICILLIN. MEDICATIONS: He is on Pepcid-AC at home. REVIEW OF SYSTEMS: He denied any history of diabetes, hypercholesterolemia, FL, CABG, cardiac arrhythmia, stent angioplasty, A-fib, Coumadin, renal or pulmonary disease, thyroid disease, lupus, cancer prior seizure or stroke. SOCIAL HISTORY: Not a smoker. It is unclear how much he drinks, as noted above. Lives by himself. Works for himself selling things and buying things. FAMILY HISTORY: Negative for cancer, seizure or stroke. PHYSICAL EXAMINATION: VITAL SIGNS: 99.2 T-max, 114, 19, 125/82. Initial blood pressure 172/100. NECK: There are no carotid bruits. HEART: Regular rhythm. I do not detect a murmur. GENERAL: He is mildly obese. NEUROLOGIC: Pupils are equal. Visual fitzpatrick are full. Extraocular movements intact without nystagmus. Face is symmetric with normal sensation. Tongue was midline. No drift. He had normal strength in upper and lower extremities bilaterally. Toes downgoing bilaterally. DTRs are 1+ and symmetric throughout. Pinprick was intact throughout. There is no asterixis. There is a slight intention tremor. He appears very nervous as if he could be going through withdrawal. He denies that he has seen a psychiatrist, he tells me. LABORATORY STUDIES: His white count is 14, hematocrit 52, MCV is 109.5, platelet count is 180. Hepatitis screen is negative. ARTURO is negative. Urine drug screen was normal. UA is negative. Basic metabolic profile was essentially normal. His lactic acid was 19 when he came in, now 3.4, his calcium was 8.1 although initially 10, albumin is 3.4, AST is 175, ALT 66. Albumin is 4.3. Lipase is normal. This is his highest LFTs in awhile. His AST has been elevated consistently up around 186. They had been dropping down in May, but now is up to 175. ALT has only been high in October of last year. His B12 was normal last October. He had a CAT scan of his brain today that was read as normal. IMPRESSION AND RECOMMENDATIONS: New onset seizure, possibly alcohol-related. We will check an EEG and MRI of the brain. He does look a bit nervous as if he may be withdrawing from alcohol. He is being watched in the ICU. The CT does appear to be normal. He had an abdominal CT also which showed mild pancreatitis, hepatomegaly with prominent hepatic steatosis on his last admission. I would recommend thiamine if he has not had any of that in IV and looks like he did get at least a multivitamin bag and thiamine here. MD VARGAS Case/AILYN , 03:54 PM , 04:46 PM
--- NOTE | 2017-06-26 18:40 | HHI.HP ---
HPI Service Critical Care Medicine Primary Care Physician No Primary Care Physician Admission Diagnosis Alcohol withdrawal seizure, lactic acidosis Diagnosis: Travel History International Travel<30 Days: No Contact w/Intl Traveler <30 Da: No Traveled to Known Affected Are: No History of Present Illness History of Present Illness HPI 36-year-old male brought in by ambulance for evaluation of abdominal pain. Apparently while in route to the hospital the patient had a grand mal seizure that lasted for about a minute and a half. 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 The patient tells me he has not had a drink of alcohol in 4 days. He complains of diffuse abdominal pain described as sharp/pressure, constant, severe. Denies history of abdominal surgeries. The patient also had several episodes of vomiting while being transported by EMS. He is unsure if he has had a fever. No diarrhea. Admits to smoking some marijuana last night. Denies any other illicit drugs. Patient underwent CT abdomen pelvis which revealed question of pancreatitis and hepatic steatosis. He was noted to have an elevated lactic acid in the ER and appeared to have anxiety and tremors related to alcohol withdrawal. Patient was accepted for admission by critical care medicine service. When I evaluated the patient in the ER he was resting in bed and appeared comfortable not in any acute distress. He was complaining of some abdominal discomfort. History was obtained by discussion with patient and ER physician History PFSH Past Medical History Anxiety: Yes Depression: Yes Cardiovascular Problems: Yes Chest Pain: Yes Diminished Hearing: No Gastrointestinal Disorders: Yes (VOMITING FOR 1 YEAR, IBS) Headaches: Yes Neurologic: Yes Psychiatric: Yes Respiratory: Yes Migraines: Yes Pancreatitis: Yes Past Surgical History Ear Surgery: Yes (tubes when a kid) Other Surgery: Yes Social History Alcohol Use: Yes (DAILY) Tobacco Use: No Substance Use: No (DENIES) Allergies-Medications Allergies-Medications (Allergen,Severity, Reaction): Coded Allergies: penicillin G (Verified Allergy, Unknown, 06/26/17) Reported Meds & Prescriptions Reported Meds & Active Scripts Active Reported Pepcid AC (Famotidine) 20 Mg Tablet Unknown Dose PO DAILY ROS Review of Systems Except as stated in HPI: all other systems reviewed are Neg Physical Exam Vital Signs Vital Signs Date Time Temp Pulse Resp B/P (MAP) Pulse Ox O2 Delivery O2 Flow Rate FiO2 06/26/17 16:00 99.0 107 20 122/90 (101) 98 4/2/18 15:00 121 06/26/17 14:16 99.2 114 19 125/82 (96) 97 06/26/17 13:43 06/26/17 12:30 120 23 131/61 (84) 95 Nasal Cannula 2.00 06/26/17 11:30 112 18 152/93 (112) 96 Nasal Cannula 2.00 06/26/17 11:11 110 21 159/97 (117) Nasal Cannula 2.00 06/26/17 10:30 118 18 134/72 (92) 94 Room Air 06/26/17 09:15 104 22 161/95 (117) 96 Room Air 06/26/17 08:00 122 26 152/90 (110) 95 Room Air 06/26/17 07:11 96 Room Air 06/26/17 07:11 Nasal Cannula 2.00 06/26/17 07:05 140 28 158/73 (101) 96 Room Air 06/26/17 06:50 98.2 125 20 172/100 (124) 95 Physical Exam Narrative GENERAL: Well-developed, well-nourished, laying in bed appears anxious and slightly tremulous SKIN: Focused skin assessment warm/diaphoretic HEAD: Atraumatic. Normocephalic. EYES: Pupils equal and round. No scleral icterus. No injection or drainage. ENT: Mucous membranes pink and dry. NECK: Trachea midline. No JVD. CARDIOVASCULAR: Tachycardic, regular, rate 130. RESPIRATORY: No accessory muscle use. Clear to auscultation. Breath sounds equal bilaterally. GASTROINTESTINAL: Abdomen soft, nondistended. Moderate diffuse tenderness without peritoneal signs. MUSCULOSKELETAL: No obvious deformities. No clubbing. No cyanosis. No edema. NEUROLOGICAL: Awake and alert. No obvious cranial nerve deficits. Motor grossly within normal limits. Normal speech. PSYCHIATRIC: Appropriate mood and affect; insight and judgment normal. Laboratory Laboratory Tests Test 06/26/17 07:05 06/26/17 07:10 06/26/17 09:10 06/26/17 11:00 White Blood Count 14.5 Red Blood Count 4.78 Hemoglobin 17.5 Hematocrit 52.4 Mean Corpuscular Volume 109.5 Mean Corpuscular Hemoglobin 36.5 Mean Corpuscular Hemoglobin Concent 33.3 Red Cell Distribution Width 15.7 Platelet Count 180 Mean Platelet Volume 9.1 Neutrophils (%) (Auto) 71.9 Lymphocytes (%) (Auto) 16.9 Monocytes (%) (Auto) 10.8 Eosinophils (%) (Auto) 0.0 Basophils (%) (Auto) 0.4 Neutrophils # (Auto) 10.4 Lymphocytes # (Auto) 2.4 Monocytes # (Auto) 1.6 Eosinophils # (Auto) 0.0 Basophils # (Auto) 0.1 CBC Comment DIFF FINAL Differential Comment Prothrombin Time 13.4 Prothromb Time International Ratio 1.3 Activated Partial Thromboplast Time 28.9 Blood Urea Nitrogen 3 2 Creatinine 1.43 0.93 Random Glucose 171 126 Total Protein 8.9 Albumin 4.3 Calcium Level 10.0 8.1 Alkaline Phosphatase 262 Aspartate Amino Transf (AST/SGOT) 175 Alanine Aminotransferase (ALT/SGPT) 66 Total Bilirubin 3.4 Sodium Level 141 140 Potassium Level 3.5 4.0 Chloride Level 99 108 Carbon Dioxide Level 10.3 20.1 Anion Gap 32 12 Estimat Glomerular Filtration Rate 56 91 Magnesium Level 2.3 Lipase 346 Ethyl Alcohol Level LESS THAN 3 Lactic Acid Level 19.0 Urine Color YELLOW Urine Turbidity CLEAR Urine pH 6.0 Urine Specific [place] 1.028 Urine Protein TRACE Urine Glucose (UA) TRACE Urine Ketones 10 Urine Occult Blood TRACE Urine Nitrite NEG Urine Bilirubin NEG Urine Urobilinogen LESS THAN 2.0 Urine Leukocyte Esterase NEG Urine RBC LESS THAN 1 Urine WBC LESS THAN 1 Urine Squamous Epithelial Cells 1 Urine Hyaline Casts 8 Urine Mucus FEW Microscopic Urinalysis Comment CATH-CULT NOT IND Urine Opiates Screen NEG Urine Barbiturates Screen NEG Urine Amphetamines Screen NEG Urine Benzodiazepines Screen NEG Urine Cocaine Screen NEG Urine Cannabinoids Screen NEG Iron Level 231 Total Iron Binding Capacity 259 Percent Iron Saturation 89.2 Ferritin 813 Test 06/26/17 13:25 06/26/17 16:45 Lactic Acid Level 3.4 2.2 Ammonia 70 Date/Time Source Procedure Growth Status 06/26/17 07:10 Blood Peripheral Aerobic Blood Culture Pending Received 06/26/17 07:10 Blood Peripheral Anaerobic Blood Culture Pending Received 06/26/17 07:40 Nasal Washing Influenza Types A,B Antigen (RIVER) - Final NEGATIVE FOR FLU A AND B ANTIGEN.... Complete Result Diagram: 06/26/17 0705 06/26/17 1100 Imaging Last Impressions Chest X-Ray 06/26/17 0707 Signed Impressions: Service Date/Time: Monday, June 26, 2017 07:46 - CONCLUSION: No acute cardiopulmonary disease. Fahad Thomas MD Head CT 06/26/17 0000 Signed Impressions: Service Date/Time: Monday, June 26, 2017 08:36 - CONCLUSION: 1. Negative noncontrast CT brain. Montez Almaguer MD Abdomen/Pelvis CT 06/26/17 0000 Signed Impressions: Service Date/Time: Monday, June 26, 2017 08:40 - CONCLUSION: 1. Mild dilation of the collecting system of the left kidney is a new finding when compared to 05/23/17. No calcified stones and no ureteral dilation. If there are symptoms referrable to left renal obstruction, may consider performing Lasix renogram. 2. Severe steatosis the liver, mild induration of the mesenteric/retroperitoneal fat, and small hiatus hernia, stable Montez Almaguer MD Caprini VTE Risk Assessment Caprini VTE Risk Assessment: No/Low Risk (score <= 1) Caprini Risk Assessment Model Point Value = 1 Point Value = 2 Point Value = 3 Point Value = 5 Age 41-60 Minor surgery BMI > 25 kg/m2 Swollen legs Varicose veins or History of unexplained or recurrent spontaneous Oral contraceptives or hormone replacement Sepsis (< 1 month) Serious lung disease, including pneumonia (< 1 month) Abnormal pulmonary function Acute myocardial infarction Congestive heart failure (< 1 month) History of inflammatory bowel disease Medical patient at bed rest Age 61-74 Arthroscopic surgery Major open surgery (> 45 min) Laparoscopic surgery (> 45 min) Malignancy Confined to bed (> 72 hours) Immobilizing plaster cast Central venous access Age >= 75 History of VTE Family history of VTE Factor V Leiden Prothrombin [id number] Lupus anticoagulant Anticardiolipin antibodies Elevated serum homocysteine Heparin-induced thrombocytopenia Other congenital or acquired thrombophilia Stroke (< 1 month) Elective arthroplasty Hip, pelvis, or leg fracture Acute spinal cord injury (< 1 month) Prophylaxis Regimen Total Risk Factor Score Risk Level Prophylaxis Regimen 0-1 Low Early ambulation 2 Moderate Order ONE of the following: *Sequential Compression Device (SCD) *Heparin 5000 units SQ BID 3-4 Higher Order ONE of the following medications: *Heparin 5000 units SQ TID *Enoxaparin/Lovenox 40 mg SQ daily (WT < 150 kg, CrCl > 30 mL/min) *Enoxaparin/Lovenox 30 mg SQ daily (WT < 150 kg, CrCl > 10-29 mL/min) *Enoxaparin/Lovenox 30 mg SQ BID (WT < 150 kg, CrCl > 30 mL/min) AND/OR *Sequential Compression Device (SCD) 5 or more Highest Order ONE of the following medications: *Heparin 5000 units SQ TID (Preferred with Epidurals) *Enoxaparin/Lovenox 40 mg SQ daily (WT < 150 kg, CrCl > 30 mL/min) *Enoxaparin/Lovenox 30 mg SQ daily (WT < 150 kg, CrCl > 10-29 mL/min) *Enoxaparin/Lovenox 30 mg SQ BID (WT < 150 kg, CrCl > 30 mL/min) AND *Sequential Compression Device (SCD) Assessment and Plan Assessment and Plan 36-year-old male with: Abdominal pain Generalized tonic-clonic seizure possibly related to alcohol withdrawal Suspected alcohol abuse/alcohol withdrawal Hepatic steatosis Plan: Patient admitted to ICU. Patient received 3 L normal saline in the ER. Repeat lactic acid appears to have improved significantly and was probably related to seizure, doubt sepsis. Obtain EEG Initiate alcohol withdrawal CIWA protocol including IV Ativan, Librium, thiamine MVI folate acid. Urine tox screen negative Neurology consult for further evaluation of seizure GI consulted for abdominal pain/hepatic steatosis. Advance diet as tolerated GI prophylaxis with PPI, DVT prophylaxis with Lovenox. Addendum: No further seizures under evaluation this evening. Patient appears comfortable on CIWA protocol. We'll transfer patient out of ICU. Transfer to hospitalist service for further medical management. Further recommendations per GI and neurology. Critical care will be signing off, please reconsult if needed. Alejandro Vera MD Jun 26, 2017 18:40
[2017-06-26] MEDS: oxyCODONE/ACETAMINOPHEN 10 MG/325 MG TAB PO PRN (18:47)
[2017-06-26] MEDS: ENOXAPARIN SODIUM 40 MG/0.4 ML SYRINGE SQ SCH (18:48)
[2017-06-26] MEDS: SODIUM CHLORIDE 0.9% FLUSH 10 ML FLUSH IV FLUSH SCH (22:06)
[2017-06-26] MEDS: ONDANSETRON HCL 4 MG/2 ML VIAL IV PUSH PRN (22:07)
[2017-06-26] MEDS: DOCUSATE SODIUM 50 MG/SENNA 8.6 MG TAB PO SCH (22:08)
[2017-06-27] VITALS (11 sets, daily range): BP systolic 116–137; BP diastolic 72–92; PULSE 78–111; RESP 16–19; TEMP 96.9–98.9; O2SAT 64–98
[2017-06-27] MEDS: LORazepam 1 MG TAB PO PRN ×2 (00:58→06:13)
[2017-06-27] MEDS: oxyCODONE/ACETAMINOPHEN 10 MG/325 MG TAB PO PRN ×2 (00:58→06:13)
[2017-06-27] MEDS: CHLORHEXIDINE GLUCONATE 2 % 1 PACK (2 CLOTHS) TOP SCH (02:57)
[2017-06-27 05:14] LABS: AUTOMATED NEUTROPHIL # 3.6 TH/MM3 (1.8-7.7); BASOPHIL % 0.7 % (0.0-2.0); EOSINOPHIL % 0.6 % (0.0-4.0); HEMATOCRIT 42.2 % (39.0-51.0); HEMOGLOBIN 14.6 GM/DL (13.0-17.0); LYMPH % 21.2 % (9.0-44.0); LYMPHOCYTE # 1.1 TH/MM3 (1.0-4.8); MEAN CELL VOLUME 106.4 FL (80.0-100.0); MEAN CORPUSCULAR HEMOGLOBIN 36.8 PG (27.0-34.0); MEAN CORPUSCULAR HGB CONC 34.6 % (32.0-36.0); MEAN PLATELET VOLUME 9.4 FL (7.0-11.0); MONO % 9.3 % (0.0-8.0); MONOCYTE # 0.5 TH/MM3 (0-0.9); NEUT % 68.2 % (16.0-70.0); PLATELET COUNT 110 TH/MM3 (150-450); RED BLOOD COUNT 3.97 MIL/MM3 (4.50-5.90); RED CELL DISTRIBUTION WIDTH 16.1 % (11.6-17.2); WHITE BLOOD COUNT 5.3 TH/MM3 (4.0-11.0)
[2017-06-27 05:51] LABS: ALKALINE PHOSPHATASE 177 U/L (45-117); ALT (GPT) 52 U/L (12-78); AST (GOT) 181 U/L (15-37); BICARBONATE 24.5 MEQ/L (21.0-32.0); BLOOD UREA NITROGEN 2 MG/DL (7-18); CALCIUM 8.4 MG/DL (8.5-10.1); CHLORIDE 107 MEQ/L (98-107); CREATININE 0.67 MG/DL (0.60-1.30); GLOMERULAR FILTRATION RATE 133 ML/MIN (>89); GLUCOSE,RANDOM 100 MG/DL (74-106); PHOSPHORUS 1.8 MG/DL (2.5-4.9); SODIUM (NA) 141 MEQ/L (136-145); TOTAL BILIRUBIN ADULT 5.5 MG/DL (0.2-1.0); TOTAL PROTEIN 6.6 GM/DL (6.4-8.2)
[2017-06-27] MEDS: ONDANSETRON HCL 4 MG/2 ML VIAL IV PUSH PRN ×2 (06:13→18:20)
[2017-06-27] MEDS: D5-1/2 NS + KCL 20 MEQ INJ 1,000 ML IV SCH ×2 (06:14→16:12)
--- NOTE | 2017-06-27 07:57 | HHI.PR ---
Subjective Remarks no sz overnoc Objective Vital Signs Date Time Temp Pulse Resp B/P (MAP) Pulse Ox O2 Delivery O2 Flow Rate FiO2 06/27/17 07:42 Nasal Cannula 2.00 06/27/17 04:00 84 06/27/17 04:00 98.5 97 18 132/75 (94) 98 06/27/17 00:00 98.9 98 18 98 06/27/17 00:00 92 06/26/17 21:10 96 Nasal Cannula 2.00 06/26/17 21:00 98.5 103 18 145/92 (109) 100 06/26/17 20:00 108 06/26/17 20:00 98.6 119 17 139/87 (104) 95 06/26/17 20:00 Nasal Cannula 2.00 06/26/17 19:47 22 06/26/17 19:00 103 21 130/90 (103) 96 06/26/17 18:00 100 06/26/17 16:00 107 06/26/17 16:00 99.0 107 20 122/90 (101) 98 06/26/17 15:00 121 06/26/17 14:16 99.2 114 19 125/82 (96) 97 06/26/17 13:43 06/26/17 12:30 120 23 131/61 (84) 95 Nasal Cannula 2.00 06/26/17 11:30 112 18 152/93 (112) 96 Nasal Cannula 2.00 06/26/17 11:11 110 21 159/97 (117) Nasal Cannula 2.00 06/26/17 10:30 118 18 134/72 (92) 94 Room Air 06/26/17 09:15 104 22 161/95 (117) 96 Room Air 06/26/17 08:00 122 26 152/90 (110) 95 Room Air I/O 06/26/17 06/26/17 06/26/17 06/27/17 06/27/17 06/27/17 07:00 15:00 23:00 07:00 15:00 23:00 Intake Total 3201 ml 1068 ml Output Total 1400 ml 200 ml Balance 1801 ml 1068 ml -200 ml Intake Oral 350 ml IV Total 3201 ml 718 ml Output Urine Total 1400 ml 200 ml # Voids 3 100 # Bowel Movements 0 Result Diagram: 06/27/17 0335 06/27/17 0335 Objective Remarks awakens easily less nervous Assessment and Plan Assessment and Plan looks alittle better eeg nl mri check one nh3 up stable neuro Fahad Levy MD Jun 27, 2017 07:57
--- NOTE | 2017-06-27 08:01 | MG ---
cc: Fahad Levy MD TEST NUMBER: [id number]. DESCRIPTION: Hyperventilation is not performed. Status post Ativan. Several episodes of vomiting, abdominal pain, seizure, alcohol use, Zofran. Diffuse beta rhythms are noted consistent with benzodiazepine administration. No hemisphere asymmetry is noted. A lot of movement artifact, muscle artifact is seen. No epileptiform or seizure activity is noted. Photic stimulation is performed without significant posterior driving. IMPRESSION: Some medication effect with the beta rhythms, otherwise unremarkable electroencephalogram. MD VARGAS Case/ANDRES , 06:05 PM , 06:20 PM
[2017-06-27] MEDS: DOCUSATE SODIUM 50 MG/SENNA 8.6 MG TAB PO SCH ×2 (08:37→22:19)
[2017-06-27] MEDS: PANTOPRAZOLE SODIUM 40 MG VIAL IV PUSH SCH (08:37)
[2017-06-27] MEDS: SODIUM CHLORIDE 0.9% FLUSH 10 ML FLUSH IV FLUSH SCH ×2 (09:00→22:20)
[2017-06-27] MEDS ORDERED: POTASSIUM CHLORIDE 10 MEQ CONTROLLED RELEASE TAB PO ONE (10:00)
[2017-06-27] MEDS: LACTULOSE SYRUP 20 GM/30 ML CUP PO SCH ×2 (11:00→21:00)
[2017-06-27] MEDS: POTASSIUM PHOSPHATE MONOBASIC 500 MG TAB PO SCH ×2 (11:30→22:19)
[2017-06-27] MEDS: THIAMINE HCL 100 MG TAB PO SCH (12:00)
--- NOTE | 2017-06-27 13:13 | HHI.GIFU ---
Subjective Remarks pt resting in bed. c/o of some RUQ pain and nausea, dizziness. (Lizy Raza) Objective Vitals I&O Vital Signs Date Time Temp Pulse Resp B/P (MAP) Pulse Ox O2 Delivery O2 Flow Rate FiO2 06/27/17 12:05 98.6 89 19 135/92 (106) 96 06/27/17 11:57 82 06/27/17 08:05 98.4 92 19 137/79 (98) 97 06/27/17 08:00 78 06/27/17 07:42 Nasal Cannula 2.00 06/27/17 04:00 84 06/27/17 04:00 98.5 97 18 132/75 (94) 98 06/27/17 00:00 98.9 98 18 98 06/27/17 00:00 92 06/26/17 21:10 96 Nasal Cannula 2.00 06/26/17 21:00 98.5 103 18 145/92 (109) 100 06/26/17 20:00 108 06/26/17 20:00 98.6 119 17 139/87 (104) 95 06/26/17 20:00 Nasal Cannula 2.00 06/26/17 19:47 22 06/26/17 19:00 103 21 130/90 (103) 96 06/26/17 18:00 100 06/26/17 16:00 107 06/26/17 16:00 99.0 107 20 122/90 (101) 98 06/26/17 15:00 121 06/26/17 14:16 99.2 114 19 125/82 (96) 97 06/26/17 13:43 I/O 06/26/17 06/26/17 06/26/17 06/27/17 06/27/17 06/27/17 07:00 15:00 23:00 07:00 15:00 23:00 Intake Total 3201 ml 1068 ml Output Total 1400 ml 200 ml Balance 1801 ml 1068 ml -200 ml Intake Oral 350 ml IV Total 3201 ml 718 ml Output Urine Total 1400 ml 200 ml # Voids 3 100 # Bowel Movements 0 Laboratory Laboratory Tests Test 06/26/17 13:25 06/26/17 14:26 06/26/17 16:45 06/27/17 03:35 Lactic Acid Level 3.4 2.2 Nasal Screen MRSA (PCR) MRSA NOT DETECTED Ammonia 70 White Blood Count 5.3 Red Blood Count 3.97 Hemoglobin 14.6 Hematocrit 42.2 Mean Corpuscular Volume 106.4 Mean Corpuscular Hemoglobin 36.8 Mean Corpuscular Hemoglobin Concent 34.6 Red Cell Distribution Width 16.1 Platelet Count 110 Mean Platelet Volume 9.4 Neutrophils (%) (Auto) 68.2 Lymphocytes (%) (Auto) 21.2 Monocytes (%) (Auto) 9.3 Eosinophils (%) (Auto) 0.6 Basophils (%) (Auto) 0.7 Neutrophils # (Auto) 3.6 Lymphocytes # (Auto) 1.1 Monocytes # (Auto) 0.5 Eosinophils # (Auto) 0.0 Basophils # (Auto) 0.0 CBC Comment DIFF FINAL Differential Comment Blood Urea Nitrogen 2 Creatinine 0.67 Random Glucose 100 Total Protein 6.6 Albumin 3.0 Calcium Level 8.4 Phosphorus Level 1.8 Magnesium Level 2.0 Alkaline Phosphatase 177 Aspartate Amino Transf (AST/SGOT) 181 Alanine Aminotransferase (ALT/SGPT) 52 Total Bilirubin 5.5 Sodium Level 141 Potassium Level 3.2 Chloride Level 107 Carbon Dioxide Level 24.5 Anion Gap 10 Estimat Glomerular Filtration Rate 133 Test 06/27/17 03:55 Folate 2.1 Date/Time Source Procedure Growth Status 06/26/17 07:10 Blood Peripheral Aerobic Blood Culture - Preliminary NO GROWTH IN 1 DAY Resulted 06/26/17 07:10 Blood Peripheral Anaerobic Blood Culture - Preliminary NO GROWTH IN 1 DAY Resulted 06/26/17 07:40 Nasal Washing Influenza Types A,B Antigen (RIVER) - Final NEGATIVE FOR FLU A AND B ANTIGEN.... Complete Imaging Last Impressions Chest X-Ray 06/26/17 0707 Signed Impressions: Service Date/Time: Monday, June 26, 2017 07:46 - CONCLUSION: No acute cardiopulmonary disease. Fahad Thomas MD Head CT 06/26/17 0000 Signed Impressions: Service Date/Time: Monday, June 26, 2017 08:36 - CONCLUSION: 1. Negative noncontrast CT brain. Montez Almaguer MD Abdomen/Pelvis CT 06/26/17 0000 Signed Impressions: Service Date/Time: Monday, June 26, 2017 08:40 - CONCLUSION: 1. Mild dilation of the collecting system of the left kidney is a new finding when compared to 05/23/17. No calcified stones and no ureteral dilation. If there are symptoms referrable to left renal obstruction, may consider performing Lasix renogram. 2. Severe steatosis the liver, mild induration of the mesenteric/retroperitoneal fat, and small hiatus hernia, stable Montez Almaguer MD Physical Exam HEENT: PERRL, icterus CHEST: CTA CARDIAC: RRR ABDOMEN: Soft, mildly distended, RUQ TTP; bowel sounds are present in all four quadrants. EXTREMITIES: No clubbing, cyanosis, or edema. SKIN: Normal; no rash; [employer]: No focal deficits; alert and oriented times three. (Lizy Raza) Assessment and Plan Plan Assessment: - Elevated LFTs consistent with ETOH. Currently AST-175 ALT-66 T bili-3.4 Alk phos-262. DF-10. Previous liver work up in October 2016 --> Hepatitis panel negative, ARTURO, ASMA negative. AMA < 20. A1A-93 Ceruloplasmin-19. US gallbladder (Apr 2017) --> Hepatomegaly with severe steatosis. - Abdominal pain, diffuse, states worse with bending over, describes it as someone punching him in the stomach, intermittent. Denies any other aggravating or alleviating factors EGD and colonoscopy in October of last year --> Short segment of possible Howe's esophagus, chronic gastritis, normal colon. CT abdomen and pelvis --> Severe steatosis of the liver, mild induration of the mesenteric/retroperitoneal fat and small hiatus hernia, stable - Seizure, new onset, denies history of- ? ETOH withdraw- neurology consulted - Elevated lactic- probably secondary to seizure 06/27/17 c/o nausea, dizziness, RUQ pain. iron 231, TIBC 259, sat 89.2%, ferritin 813. NH 70. Plan: consider HIDA if pain persists continue lactulose Monitor LFTs Nausea medication PRN Alcohol withdraw protocol etoh cessation supportive care Pt has been seen and examined by myself and Dr. Sung and this note is written on his behalf (Lizy Raza) Physician Comments Seen and examined with [employer], still with abdominal pain. Monitor LFts. Watch for etoh withdrawal. ? repeat egd vs. HIDA scan if pt. persists. (Luis Sung MD) Lizy Raza Jun 27, 2017 13:13 Luis Sung MD Jun 27, 2017 14:40
--- NOTE | 2017-06-27 14:08 | HHI.PR ---
Subjective Remarks Follow-up alcohol withdrawal, abdominal pain seizure. States he is seeing shadows no auditory hallucinations. He is still tremulous. Complains of abdominal pain. No recurrence of seizure. Seen with father discussed with RN, patient strongly advised to refrain from alcohol with outpatient follow-up for alcohol cessation program. Objective Vitals Vital Signs Date Time Temp Pulse Resp B/P (MAP) Pulse Ox O2 Delivery O2 Flow Rate FiO2 06/27/17 12:05 98.6 89 19 135/92 (106) 96 06/27/17 11:57 82 06/27/17 08:05 98.4 92 19 137/79 (98) 97 06/27/17 08:00 78 06/27/17 07:42 Nasal Cannula 2.00 06/27/17 04:00 84 06/27/17 04:00 98.5 97 18 132/75 (94) 98 06/27/17 00:00 98.9 98 18 98 06/27/17 00:00 92 06/26/17 21:10 96 Nasal Cannula 2.00 06/26/17 21:00 98.5 103 18 145/92 (109) 100 06/26/17 20:00 108 06/26/17 20:00 98.6 119 17 139/87 (104) 95 06/26/17 20:00 Nasal Cannula 2.00 06/26/17 19:47 22 06/26/17 19:00 103 21 130/90 (103) 96 06/26/17 18:00 100 06/26/17 16:00 107 06/26/17 16:00 99.0 107 20 122/90 (101) 98 06/26/17 15:00 121 06/26/17 14:16 99.2 114 19 125/82 (96) 97 I/O 06/26/17 06/26/17 06/26/17 06/27/17 06/27/17 06/27/17 07:00 15:00 23:00 07:00 15:00 23:00 Intake Total 3201 ml 1068 ml Output Total 1400 ml 200 ml Balance 1801 ml 1068 ml -200 ml Intake Oral 350 ml IV Total 3201 ml 718 ml Output Urine Total 1400 ml 200 ml # Voids 3 100 # Bowel Movements 0 Result Diagram: 06/27/17 0335 06/27/17 0335 Imaging Last Impressions Chest X-Ray 06/26/17 0707 Signed Impressions: Service Date/Time: Monday, June 26, 2017 07:46 - CONCLUSION: No acute cardiopulmonary disease. Fahad Thomas MD Head CT 06/26/17 0000 Signed Impressions: Service Date/Time: Monday, June 26, 2017 08:36 - CONCLUSION: 1. Negative noncontrast CT brain. Montez Almaguer MD Abdomen/Pelvis CT 06/26/17 0000 Signed Impressions: Service Date/Time: Monday, June 26, 2017 08:40 - CONCLUSION: 1. Mild dilation of the collecting system of the left kidney is a new finding when compared to 05/23/17. No calcified stones and no ureteral dilation. If there are symptoms referrable to left renal obstruction, may consider performing Lasix renogram. 2. Severe steatosis the liver, mild induration of the mesenteric/retroperitoneal fat, and small hiatus hernia, stable Montez Almaguer MD Objective Remarks GENERAL: Well-developed, well-nourished, laying in bed appears anxious and slightly tremulous SKIN: Focused skin assessment warm/diaphoretic EYES: Pupils equal and round. + scleral icterus. No injection or drainage. CARDIOVASCULAR: RRR RESPIRATORY: No accessory muscle use. Clear to auscultation. Breath sounds equal bilaterally. GASTROINTESTINAL: Abdomen soft, nondistended. Moderate diffuse tenderness without peritoneal signs. MUSCULOSKELETAL: No obvious deformities. No clubbing. No cyanosis. No edema. NEUROLOGICAL: Awake and alert. No obvious cranial nerve deficits. Motor grossly within normal limits. Normal speech. PSYCHIATRIC: Appropriate mood and affect; insight and judgment normal. Procedures Non- A/P Problem List: (1) Alcohol withdrawal seizure ICD Code: F10.239 - Alcohol dependence with withdrawal, unspecified; R56.9 - Unspecified convulsions Status: Acute Assessment and Plan 36-year-old male with: Abdominal pain. EGD and colonoscopy in October of last year --> Short segment of possible Howe's esophagus, chronic gastritis, normal colon. CT abdomen and pelvis --> Severe steatosis of the liver, mild induration of the mesenteric/ retroperitoneal fat and small hiatus hernia. Continue PPI and pain management with oxycodone and IV morphine. If worsening pain consider HIDA scan for GI Generalized tonic-clonic seizure possibly related to alcohol withdrawal. Head CT and EEG unremarkable. No recurrence. Follow-up brain MRI. Seizure precautions Suspected alcohol abuse/alcohol withdrawal. Counseled continue CIWA protocol Hyperammonemia. Start lactulose GI prophylaxis with PPI, DVT prophylaxis with Lovenox. Discharge Planning Not stable for discharge Problem Qualifiers (1) Alcohol withdrawal seizure: Qualified Codes: F10.239 - Alcohol dependence with withdrawal, unspecified; R56.9 - Unspecified convulsions Lavelle Burgos MD Jun 27, 2017 14:08
[2017-06-27] MEDS: ENOXAPARIN SODIUM 40 MG/0.4 ML SYRINGE SQ SCH (18:00)
[2017-06-27] MEDS: MORPHINE SULFATE 2 MG/ML SYRINGE IV PUSH PRN (18:59)
[2017-06-27] MEDS ORDERED: GADODIAMIDE PF 287 MG/ML 5 ML VIAL (for RAD MRI) IVCONTRAST ONE (20:38)
--- NOTE | 2017-06-27 22:12 | RADRPT ---
EXAM DATE/TIME: 06/27/2017 20:27 [facility] COMPARISON: No previous studies available for comparison. INDICATIONS : Seizures. CONTRAST: 20 cc Omniscan (gadodiamide) IV MEDICAL HISTORY : Irritable bowel syndrome. SURGICAL HISTORY : Tubes in ear. ENCOUNTER: Initial ACUITY: 1 day PAIN SCORE: 2/10 LOCATION: Bilateral cranial TECHNIQUE: Multiplanar, multisequence MRI of the brain was performed both prior to and following the administrat ion of paramagnetic contrast. FINDINGS: CEREBRUM: The ventricles are normal for age. No evidence of midline shift, mass lesion, hemorrhage or acute in farction. No extraaxial fluid collections are seen. The pituitary gland and suprasellar cistern are normal in configuration. WHITE MATTER: No significant signal abnormalities are seen in the white matter. POSTERIOR FOSSA: The cerebellum and brainstem are intact. The 4th ventricle is midline. The cerebellopontine angle is unremarkable. The cerebellar tonsils are normal in position. DIFFUSION IMAGING: No focal areas of restricted diffusion are seen. No evidence of acute infarction. EXTRACRANIAL: The visualized portions of the orbits and paranasal sinuses are unremarkable. POST-CONTRAST: No abnormal areas of parenchymal or dural enhancement. No evidence of blood-brain barrier breakdown. CONCLUSION: Normal examination for a patient of this age. Ponce Child MD on June 27, 2017 at 22:08 Board Certified Radiologist. This report was verified electronically.
[2017-06-28] VITALS: PULSE 109
[2017-06-28] MEDS: D5-1/2 NS + KCL 20 MEQ INJ 1,000 ML IV SCH (01:41)
[2017-06-28] MEDS: MORPHINE SULFATE 2 MG/ML SYRINGE IV PUSH PRN ×2 (01:42→12:51)
[2017-06-28 04:00] VITALS: PULSE 83
[2017-06-28] MEDS: CHLORHEXIDINE GLUCONATE 2 % 1 PACK (2 CLOTHS) TOP SCH (04:00)
[2017-06-28 04:33] VITALS: BP 142/60; PULSE 92; RESP 16; TEMP 98.2; O2SAT 96
[2017-06-28 08:00] VITALS: BP 114/56; PULSE 94; PULSE 96; RESP 18; TEMP 98.2; O2SAT 93
[2017-06-28] MEDS ORDERED: MULTIVITAMINS/MINERALS THERAPEUTIC TAB PO SCH (09:00)
[2017-06-28] MEDS ORDERED: FOLIC ACID 1 MG TAB PO SCH (09:00)
[2017-06-28] MEDS ORDERED: PANTOPRAZOLE SOD 40 MG DELAYED RELEASE TAB PO SCH (09:00)
[2017-06-28] MEDS: THIAMINE HCL 100 MG TAB PO SCH (09:10)
[2017-06-28] MEDS: DOCUSATE SODIUM 50 MG/SENNA 8.6 MG TAB PO SCH (09:10)
[2017-06-28] MEDS: POTASSIUM PHOSPHATE MONOBASIC 500 MG TAB PO SCH (09:12)
[2017-06-28] MEDS: SODIUM CHLORIDE 0.9% FLUSH 10 ML FLUSH IV FLUSH SCH (09:13)
[2017-06-28] MEDS: LACTULOSE SYRUP 20 GM/30 ML CUP PO SCH (09:13)
[2017-06-28 09:44] LABS: AUTOMATED NEUTROPHIL # 2.9 TH/MM3 (1.8-7.7); BASOPHIL % 0.6 % (0.0-2.0); EOSINOPHIL # 0.1 TH/MM3 (0-0.4); EOSINOPHIL % 1.5 % (0.0-4.0); HEMOGLOBIN 14.6 GM/DL (13.0-17.0); LYMPH % 25.2 % (9.0-44.0); LYMPHOCYTE # 1.2 TH/MM3 (1.0-4.8); MEAN CELL VOLUME 106.8 FL (80.0-100.0); MEAN CORPUSCULAR HEMOGLOBIN 37.2 PG (27.0-34.0); MEAN CORPUSCULAR HGB CONC 34.8 % (32.0-36.0); MEAN PLATELET VOLUME 9.2 FL (7.0-11.0); MONO % 9.6 % (0.0-8.0); MONOCYTE # 0.4 TH/MM3 (0-0.9); NEUT % 63.1 % (16.0-70.0); PLATELET COUNT 110 TH/MM3 (150-450); RED BLOOD COUNT 3.94 MIL/MM3 (4.50-5.90); RED CELL DISTRIBUTION WIDTH 16.1 % (11.6-17.2); WHITE BLOOD COUNT 4.6 TH/MM3 (4.0-11.0)
[2017-06-28 10:03] LABS: ALBUMIN 3.1 GM/DL (3.4-5.0); AST (GOT) 156 U/L (15-37); BICARBONATE 28.3 MEQ/L (21.0-32.0); BLOOD UREA NITROGEN 1 MG/DL (7-18); CALCIUM 9.1 MG/DL (8.5-10.1); CHLORIDE 104 MEQ/L (98-107); CREATININE 0.66 MG/DL (0.60-1.30); GLOMERULAR FILTRATION RATE 136 ML/MIN (>89); GLUCOSE,RANDOM 94 MG/DL (74-106); MAGNESIUM 1.8 MG/DL (1.5-2.5); SODIUM (NA) 140 MEQ/L (136-145)
[2017-06-28 10:04] LABS: ALT (GPT) 55 U/L (12-78)
[2017-06-28 10:07] LABS: ALKALINE PHOSPHATASE 170 U/L (45-117); TOTAL BILIRUBIN ADULT 6.2 MG/DL (0.2-1.0); TOTAL PROTEIN 6.6 GM/DL (6.4-8.2)
[2017-06-28 12:00] VITALS: BP 138/86; PULSE 93; PULSE 95; RESP 18; TEMP 98.7; O2SAT 93
--- NOTE | 2017-06-28 12:15 | HHI.PR ---
Subjective Remarks Follow-up abdominal pain. Improved abdominal pain tolerating diet. He is ambulating. Denies hallucinations. Discussed with GI, stable for discharge with outpatient follow-up. Again discussed with patient absolute alcohol abstinence. Objective Vitals Vital Signs Date Time Temp Pulse Resp B/P (MAP) Pulse Ox O2 Delivery O2 Flow Rate FiO2 06/28/17 08:00 Nasal Cannula 2.00 06/28/17 08:00 94 06/28/17 04:33 98.2 92 16 142/60 (87) 96 06/28/17 04:00 83 06/28/17 00:00 109 06/27/17 23:37 98.6 108 16 116/72 (87) 94 06/27/17 20:00 99 06/27/17 20:00 Nasal Cannula 2.00 06/27/17 19:45 97.8 111 16 120/82 (95) 64 06/27/17 16:30 96.9 93 16 120/82 (95) 97 06/27/17 16:00 Nasal Cannula 2.00 06/27/17 16:00 98 I/O 06/27/17 06/27/17 06/27/17 06/28/17 06/28/17 06/28/17 07:00 15:00 23:00 07:00 15:00 23:00 Intake Total 800 ml 480 ml 1720 ml Output Total 200 ml 1100 ml Balance 600 ml -620 ml 1720 ml Intake Oral 480 ml 720 ml IV Total 800 ml 1000 ml Output Urine Total 200 ml 1100 ml # Voids 8 # Bowel Movements 0 1 0 Result Diagram: 06/28/17 0749 06/28/17 0749 Imaging Last Impressions Brain MRI 06/27/17 0000 Signed Impressions: Service Date/Time: Tuesday, June 27, 2017 20:27 - CONCLUSION: Normal examination for a patient of this age. Ponce Child MD Chest X-Ray 06/26/17 0707 Signed Impressions: Service Date/Time: Monday, June 26, 2017 07:46 - CONCLUSION: No acute cardiopulmonary disease. Fahad Thomas MD Head CT 06/26/17 0000 Signed Impressions: Service Date/Time: Monday, June 26, 2017 08:36 - CONCLUSION: 1. Negative noncontrast CT brain. Montez Almaguer MD Abdomen/Pelvis CT 06/26/17 0000 Signed Impressions: Service Date/Time: Monday, June 26, 2017 08:40 - CONCLUSION: 1. Mild dilation of the collecting system of the left kidney is a new finding when compared to 05/23/17. No calcified stones and no ureteral dilation. If there are symptoms referrable to left renal obstruction, may consider performing Lasix renogram. 2. Severe steatosis the liver, mild induration of the mesenteric/retroperitoneal fat, and small hiatus hernia, stable Montez Almaguer MD Objective Remarks GENERAL: Well-developed, well-nourished, laying in bed appears anxious and slightly tremulous SKIN: Focused skin assessment warm/diaphoretic EYES: Pupils equal and round. + scleral icterus. No injection or drainage. CARDIOVASCULAR: RRR RESPIRATORY: No accessory muscle use. Clear to auscultation. Breath sounds equal bilaterally. GASTROINTESTINAL: Abdomen soft, nondistended. Moderate diffuse tenderness without peritoneal signs. MUSCULOSKELETAL: No obvious deformities. No clubbing. No cyanosis. No edema. NEUROLOGICAL: Awake and alert. No obvious cranial nerve deficits. Motor grossly within normal limits. Normal speech. PSYCHIATRIC: Appropriate mood and affect; insight and judgment normal. Procedures Non- A/P Problem List: (1) Alcohol withdrawal seizure ICD Code: F10.239 - Alcohol dependence with withdrawal, unspecified; R56.9 - Unspecified convulsions Status: Acute Assessment and Plan 36-year-old male with: Abdominal pain. EGD and colonoscopy in October of last year --> Short segment of possible Howe's esophagus, chronic gastritis, normal colon. CT abdomen and pelvis --> Severe steatosis of the liver, mild induration of the mesenteric/ retroperitoneal fat and small hiatus hernia. Improved tolerating diet. Continue PPI and pain management with oxycodone and IV morphine. If worsening pain consider HIDA scan per GI Generalized tonic-clonic seizure possibly related to alcohol withdrawal. Head CT and EEG unremarkable. No recurrence. Unremarkable brain MRI. Seizure precautions. Patient advised no driving for 6 months under physicians care, swimming alone, carrying young children and climbing heights Suspected alcohol abuse/alcohol withdrawal. Improved. Counseled continue CIWA protocol Hyperammonemia. Stooling on lactulose to titrate 3 stools a day GI prophylaxis with PPI, DVT prophylaxis with Lovenox. Discharge Planning Stable for discharge Problem Qualifiers (1) Alcohol withdrawal seizure: Qualified Codes: F10.239 - Alcohol dependence with withdrawal, unspecified; R56.9 - Unspecified convulsions Lavelle Burgos MD Jun 28, 2017 12:15
--- NOTE | 2017-06-28 12:20 | HHI.DCPOC ---
Discharge Care Plan Diagnosis: (1) Alcohol withdrawal seizure Your Health Problems Are: Difficulty with ADL Exercise Tolerance Goals to Promote Your Health * To prevent worsening of your condition and complications * To maintain your health at the optimal level Directions to Meet Your Goals Take your medications as prescribed Follow your dietary instruction Follow activity as directed Keep your appointments as scheduled Take your immunizations and boosters as scheduled If your symptoms worsen call your PCP, if no PCP go to Urgent Care Center or Emergency Room Smoking is Dangerous to Your Health. Avoid second hand smoke Call the 24-hour hour crisis hotline for domestic abuse at Lavelle Burgos MD Jun 28, 2017 12:20
[2017-06-28] MEDS ORDERED: THIA100 PO (12:24)
[2017-06-28] MEDS ORDERED: Lactulose Liq PO (12:24)
[2017-06-28] MEDS ORDERED: CHLO25CA9 PO (12:24)
[2017-06-28] MEDS ORDERED: OXYC-395 PO (12:24)
[2017-06-28] MEDS ORDERED: FOLI1TAB6 PO (12:24)
[2017-06-28] MEDS ORDERED: chlordiazePOXIDE 25 MG CAP PO SCH (13:00)
[2017-06-28] MEDS ORDERED: POTASSIUM CHLORIDE 20 MEQ CONTROLLED RELEASE TAB PO ONE (13:20)
--- NOTE | 2017-06-28 14:45 | HHI.DS ---
Discharge Summary Admission Date Jun 26, 2017 at 10:15 Discharge Date: Jun 28, 2017 Admitting Diagnosis Alcohol withdrawal seizure, lactic acidosis (1) Alcohol withdrawal seizure ICD Code: F10.239 - Alcohol dependence with withdrawal, unspecified; R56.9 - Unspecified convulsions Diagnosis: Principal Status: Acute Procedures Non- Brief History - From Admission History of Present Illness HPI 36-year-old male brought in by ambulance for evaluation of abdominal pain. Apparently while in route to the hospital the patient had a grand mal seizure that lasted for about a minute and a half. 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 The patient tells me he has not had a drink of alcohol in 4 days. He complains of diffuse abdominal pain described as sharp/pressure, constant, severe. Denies history of abdominal surgeries. The patient also had several episodes of vomiting while being transported by EMS. He is unsure if he has had a fever. No diarrhea. Admits to smoking some marijuana last night. Denies any other illicit drugs. Patient underwent CT abdomen pelvis which revealed question of pancreatitis and hepatic steatosis. He was noted to have an elevated lactic acid in the ER and appeared to have anxiety and tremors related to alcohol withdrawal. Patient was accepted for admission by critical care medicine service. When I evaluated the patient in the ER he was resting in bed and appeared comfortable not in any acute distress. He was complaining of some abdominal discomfort. History was obtained by discussion with patient and ER physician History PFSH Past Medical History Anxiety: Yes Depression: Yes Cardiovascular Problems: Yes Chest Pain: Yes Diminished Hearing: No Gastrointestinal Disorders: Yes (VOMITING FOR 1 YEAR, IBS) Headaches: Yes Neurologic: Yes Psychiatric: Yes Respiratory: Yes Migraines: Yes Pancreatitis: Yes Past Surgical History Ear Surgery: Yes (tubes when a kid) Other Surgery: Yes Social History Alcohol Use: Yes (DAILY) Tobacco Use: No Substance Use: No (DENIES) Allergies-Medications Allergies-Medications (Allergen,Severity, Reaction): Coded Allergies: penicillin G (Verified Allergy, Unknown, 06/26/17) Reported Meds & Prescriptions Reported Meds & Active Scripts Active Reported Pepcid AC (Famotidine) 20 Mg Tablet Unknown Dose PO DAILY ROS Review of Systems Except as stated in HPI: all other systems reviewed are Neg CBC/BMP: 06/28/17 0749 06/28/17 0749 Significant Findings Laboratory Tests Test 06/26/17 07:05 06/26/17 07:10 06/26/17 09:10 06/26/17 11:00 White Blood Count 14.5 TH/MM3 (4.0-11.0) Hemoglobin 17.5 GM/DL (13.0-17.0) Hematocrit 52.4 % (39.0-51.0) Mean Corpuscular Volume 109.5 FL (80.0-100.0) Mean Corpuscular Hemoglobin 36.5 PG (27.0-34.0) Neutrophils (%) (Auto) 71.9 % (16.0-70.0) Monocytes (%) (Auto) 10.8 % (0.0-8.0) Neutrophils # (Auto) 10.4 TH/MM3 (1.8-7.7) Monocytes # (Auto) 1.6 TH/MM3 (0-0.9) Prothrombin Time 13.4 SEC (9.8-11.6) Blood Urea Nitrogen 3 MG/DL (7-18) 2 MG/DL (7-18) Creatinine 1.43 MG/DL (0.60-1.30) Random Glucose 171 MG/DL (74-106) 126 MG/DL (74-106) Total Protein 8.9 GM/DL (6.4-8.2) Alkaline Phosphatase 262 U/L (45-117) Aspartate Amino Transf (AST/SGOT) 175 U/L (15-37) Total Bilirubin 3.4 MG/DL (0.2-1.0) Carbon Dioxide Level 10.3 MEQ/L (21.0-32.0) 20.1 MEQ/L (21.0-32.0) Anion Gap 32 MEQ/L (5-15) Estimat Glomerular Filtration Rate 56 ML/MIN (>89) Lactic Acid Level 19.0 mmol/L (0.4-2.0) Urine Ketones 10 mg/dL (NEG) Urine Occult Blood TRACE (NEG) Urine Mucus FEW /lpf (OCC) Calcium Level 8.1 MG/DL (8.5-10.1) Chloride Level 108 MEQ/L (98-107) Iron Level 231 MCG/DL (65-175) Percent Iron Saturation 89.2 % (20-50) Ferritin 813 NG/ML (26-388) Test 06/26/17 13:25 06/26/17 14:26 06/26/17 16:45 06/27/17 03:35 Lactic Acid Level 3.4 mmol/L (0.4-2.0) 2.2 mmol/L (0.4-2.0) Ammonia 70 MCMOL/L (11-32) Red Blood Count 3.97 MIL/MM3 (4.50-5.90) Mean Corpuscular Volume 106.4 FL (80.0-100.0) Mean Corpuscular Hemoglobin 36.8 PG (27.0-34.0) Platelet Count 110 TH/MM3 (150-450) Monocytes (%) (Auto) 9.3 % (0.0-8.0) Blood Urea Nitrogen 2 MG/DL (7-18) Albumin 3.0 GM/DL (3.4-5.0) Calcium Level 8.4 MG/DL (8.5-10.1) Phosphorus Level 1.8 MG/DL (2.5-4.9) Alkaline Phosphatase 177 U/L (45-117) Aspartate Amino Transf (AST/SGOT) 181 U/L (15-37) Total Bilirubin 5.5 MG/DL (0.2-1.0) Potassium Level 3.2 MEQ/L (3.5-5.1) Test 06/27/17 03:55 06/28/17 07:49 Folate 2.1 NG/ML (3.1-17.5) Red Blood Count 3.94 MIL/MM3 (4.50-5.90) Mean Corpuscular Volume 106.8 FL (80.0-100.0) Mean Corpuscular Hemoglobin 37.2 PG (27.0-34.0) Platelet Count 110 TH/MM3 (150-450) Monocytes (%) (Auto) 9.6 % (0.0-8.0) Blood Urea Nitrogen 1 MG/DL (7-18) Albumin 3.1 GM/DL (3.4-5.0) Alkaline Phosphatase 170 U/L (45-117) Aspartate Amino Transf (AST/SGOT) 156 U/L (15-37) Total Bilirubin 6.2 MG/DL (0.2-1.0) Potassium Level 3.3 MEQ/L (3.5-5.1) Imaging Last Impressions Brain MRI 06/27/17 0000 Signed Impressions: Service Date/Time: Tuesday, June 27, 2017 20:27 - CONCLUSION: Normal examination for a patient of this age. Ponce Child MD Chest X-Ray 06/26/17 0707 Signed Impressions: Service Date/Time: Monday, June 26, 2017 07:46 - CONCLUSION: No acute cardiopulmonary disease. Fahad Thomas MD Head CT 06/26/17 0000 Signed Impressions: Service Date/Time: Monday, June 26, 2017 08:36 - CONCLUSION: 1. Negative noncontrast CT brain. Montez Almaguer MD Abdomen/Pelvis CT 06/26/17 0000 Signed Impressions: Service Date/Time: Monday, June 26, 2017 08:40 - CONCLUSION: 1. Mild dilation of the collecting system of the left kidney is a new finding when compared to 05/23/17. No calcified stones and no ureteral dilation. If there are symptoms referrable to left renal obstruction, may consider performing Lasix renogram. 2. Severe steatosis the liver, mild induration of the mesenteric/retroperitoneal fat, and small hiatus hernia, stable Montez Almaguer MD PE at Discharge GENERAL: Well-developed, well-nourished, laying in bed appears anxious and slightly tremulous SKIN: Focused skin assessment warm/diaphoretic EYES: Pupils equal and round. + scleral icterus. No injection or drainage. CARDIOVASCULAR: RRR RESPIRATORY: No accessory muscle use. Clear to auscultation. Breath sounds equal bilaterally. GASTROINTESTINAL: Abdomen soft, nondistended. Moderate diffuse tenderness without peritoneal signs. MUSCULOSKELETAL: No obvious deformities. No clubbing. No cyanosis. No edema. NEUROLOGICAL: Awake and alert. No obvious cranial nerve deficits. Motor grossly within normal limits. Normal speech. PSYCHIATRIC: Appropriate mood and affect; insight and judgment normal. Hospital Course 36-year-old male with: Abdominal pain. EGD and colonoscopy in October of last year --> Short segment of possible Howe's esophagus, chronic gastritis, normal colon. CT abdomen and pelvis --> Severe steatosis of the liver, mild induration of the mesenteric/ retroperitoneal fat and small hiatus hernia. Improved tolerating diet. Continue PPI and pain management with oxycodone and IV morphine. If worsening pain consider HIDA scan per GI Generalized tonic-clonic seizure possibly related to alcohol withdrawal. Head CT and EEG unremarkable. No recurrence. Unremarkable brain MRI. Seizure precautions. Patient advised no driving for 6 months under physicians care, swimming alone, carrying young children and climbing heights Suspected alcohol abuse/alcohol withdrawal. Improved. Counseled continue CIWA protocol Hyperammonemia. Stooling on lactulose to titrate 3 stools a day GI prophylaxis with PPI, DVT prophylaxis with Lovenox. Pt Condition on Discharge: Stable Discharge Disposition: Discharge Home Discharge Time: > 30 minutes Discharge Instructions DIET: Follow Instructions for: Heart Healthy Diet Activities you can perform: Regular-No Restrictions Activities to Avoid: Driving Other Activity Instructions: Patient advised no driving for 6 months under physicians care, swimming alone, carrying young children and climbing heights Follow up Referrals: Gastroenterology - 1 Week PCP Follow-up - 1 Week New Medications: Chlordiazepoxide HCl (Chlordiazepoxide HCl) 25 Mg Capsule 25 MG PO TID for Alcohol Detox, #9 CAP Take THREE Times daily for 1 Day, then TWICE daily for 2 days, then ONCE a day for 2 Days. Folic Acid (Folic Acid) 1 Mg Tablet 1 MG PO DAILY for folate deficiency, #30 TAB Oxycodone (Oxycodone) 10 Mg Tab 10 MG PO Q6H PRN for PAIN SCALE 1 TO 10, #10 TAB Thiamine HCl (Gnp Vitamin B-1) 100 Mg Tab 100 MG PO DAILY for Alcohol Detox, #30 TAB [Lactulose Liq] () 30 ML SYRP 30 ML PO BID for confusion, #900 Continued Medications: Famotidine (Pepcid AC) 20 Mg Tablet Unknown Dose PO DAILY Lavelle Burgos MD Jun 28, 2017 14:45
[2017-06-29] MEDS ORDERED: FOLIC ACID 1 MG TAB PO SCH (09:00)
== END 2017-06-28 15:30 | disposition home or self-care (01) | DRG 897 ==
LOC: NEPE 06:45 → NEDA 10:15 → HIMW 13:50 → N04A 20:48
PROVIDERS: ADMIT Internal Medicine; ATTEND Internal Medicine
DX: F10.239 Alcohol dependence with withdrawal, unspecified (principal); E87.2 Acidosis; E72.20 Disorder of urea cycle metabolism, unspecified; K76.0 Fatty (change of) liver, not elsewhere classified; G40.409 Other generalized epilepsy and epileptic syndromes, not intractable, without status epilepticus; R16.0 Hepatomegaly, not elsewhere classified; K44.9 Diaphragmatic hernia without obstruction or gangrene; K21.9 Gastro-esophageal reflux disease without esophagitis; K70.9 Alcoholic liver disease, unspecified; F17.200 Nicotine dependence, unspecified, uncomplicated; F32.9 Major depressive disorder, single episode, unspecified; F41.9 Anxiety disorder, unspecified; Y90.0 Blood alcohol level of less than 20 mg/100 ml; Z88.0 Allergy status to penicillin
CPT/HCPCS: 70450; 70553; 71045; 74177; 80048; 80053; 80307; 81001; 82140; 82728; 82746; 83540; 83550; 83605; 83690; 83735; 84100; 85025; 85610; 85730; 87040; 87641; 87804; 95819; 96361; 96374; 96375; 96376; A9579; C9113; J1650; J2060; J2270; J2405; J3411; J3480; J7030; J7040; Q9967

== ENCOUNTER 2017-09-02 17:35 | Observation (INO) | payer SELFPAY ==
[~2017-09-02] VITALS: Ht 188 cm; Wt 95.0 kg
[~2017-09-02 17:35] MED LIST changes: +CHLO25CA9 PO; +FOLI1TAB6 PO; +Lactulose Liq PO; -NEXI20CA PO; -OXYC-392 PO; +OXYC-395 PO; +PEPC20TA11 PO; -POTA-163 PO; -PROM25TA10 PO
[2017-09-02 17:41] VITALS: BP 102/60; PULSE 72; RESP 19; TEMP 98.4; O2SAT 96
[2017-09-02] MEDS ORDERED: SODIUM CHLOR 0.9% 1000 ML INJ 1,000 ML IV SCH ×2 (17:56→19:52)
[2017-09-02] MEDS ORDERED: MORPHINE SULFATE 4 MG/ML INJ IV PUSH ONE ×2 (18:00→20:00)
[2017-09-02] MEDS ORDERED: SODIUM CHLORIDE 0.9% FLUSH 10 ML FLUSH IV FLUSH PRN ×2 (18:00→20:15)
[2017-09-02] MEDS ORDERED: PANTOPRAZOLE SODIUM 40 MG VIAL IVP ONE (18:00)
[2017-09-02 18:08] VITALS: BP 113/70; PULSE 65; RESP 18; TEMP 99.3; O2SAT 97
[2017-09-02 18:38] LABS: AUTOMATED NEUTROPHIL # 7.3 TH/MM3 (1.8-7.7); BASOPHIL % 0.4 % (0.0-2.0); EOSINOPHIL % 0.5 % (0.0-4.0); HEMATOCRIT 47.9 % (39.0-51.0); HEMOGLOBIN 16.9 GM/DL (13.0-17.0); LYMPH % 13.9 % (9.0-44.0); LYMPHOCYTE # 1.3 TH/MM3 (1.0-4.8); MEAN CORPUSCULAR HGB CONC 35.3 % (32.0-36.0); MEAN PLATELET VOLUME 9.1 FL (7.0-11.0); MONO % 9.2 % (0.0-8.0); MONOCYTE # 0.9 TH/MM3 (0-0.9); PLATELET COUNT 159 TH/MM3 (150-450); RED BLOOD COUNT 4.69 MIL/MM3 (4.50-5.90); RED CELL DISTRIBUTION WIDTH 13.7 % (11.6-17.2); WHITE BLOOD COUNT 9.7 TH/MM3 (4.0-11.0)
--- NOTE | 2017-09-02 18:44 | RADRPT ---
EXAM DATE: 09/02/2017 6:26 PM EDT AGE/SEX: 37 years / Male INDICATIONS: Chest Pain CLINICAL DATA: This is the patient's initial encounter. Patient reports that signs and symptoms have been present for 1 day and indicates a pain score of 5/10. MEDICAL/SURGICAL HISTORY: None. None. COMPARISON: [facility] – [place] SING[place] AP, 06/26/2017. . FINDINGS: A single AP view of the chest demonstrates the lungs to be symmetrically aerated without evidence of mass, infiltrate or effusion. The cardiomediastinal contours are unremarkable. Osseous structures a re intact. CONCLUSION: The lungs are clear. Electronically signed by: Montez Almaguer MD 09/02/2017 6:42 PM EDT
[2017-09-02 18:49] LABS: BILIRUBIN, URINE NEG (NEG); BLOOD, URINE NEG (NEG); GLUCOSE,URINE NEG (NEG); KETONE, URINE NEG (NEG); MUCUS URINE FEW /lpf (OCC); NITRITE,URINE NEG (NEG); URINE COLOR YELLOW (YELLW/STRAW); URINE LEUKOCYTE ESTERASE NEG (NEG)
--- NOTE | 2017-09-02 18:53 | PD ---
HPI Chief Complaint: Chest Pain Time Seen by Provider: 17:50 Travel History International Travel<30 days: No Contact w/Intl Traveler<30days: No Traveled to known affect area: No History of Present Illness HPI Patient is a 29-year-old male presenting to the emergency department for evaluation of abdominal pain. Patient states it started 2-3 days ago. He reports that it radiates up to his left chest wall, he states is aching, cramping and burning in nature. Patient denies any shortness of breath, headache, dizziness, diaphoresis. He reports a history of pancreatitis and states that the pain feels similar to what he has had in the past. He reports abdominal bloating. Symptom onset was gradual, symptoms are moderate in nature. He reports pain is an 8 out of 10. Pain is constant. No alleviating factors. PFSH Past Medical History Anxiety: Yes Depression: Yes Cardiovascular Problems: Yes Chest Pain: Yes Gastrointestinal Disorders: Yes ( IBS) Headaches: Yes Respiratory: Yes Migraines: Yes Pancreatitis: Yes Seizures: Yes Sleep Apnea: No Ulcer: No Tetanus Vaccination: Unknown Influenza Vaccination: No Past Surgical History Tonsillectomy: Yes Tympanostomy Tube: Yes Other Surgery: Yes Social History Alcohol Use: Yes (DAILY BEER 4-5 ) Tobacco Use: No (QUIT 10 YEARS AGO ) Substance Use: No (DENIES) Allergies-Medications (Allergen,Severity, Reaction): Coded Allergies: penicillin G (Verified Allergy, Unknown, 06/26/17) Reported Meds & Prescriptions Reported Meds & Active Scripts Active Gnp Vitamin B-1 (Thiamine HCl) 100 Mg Tab 100 Mg PO DAILY Folic Acid 1 Mg Tablet 1 Mg PO DAILY [Lactulose Liq] 30 ML Syrp 30 Ml PO BID Chlordiazepoxide HCl 25 Mg Capsule 25 Mg PO TID Take THREE Times daily for 1 Day, then TWICE daily for 2 days, then ONCE a day for 2 Days. Oxycodone (Oxycodone HCl) 10 Mg Tab 10 Mg PO Q6H PRN Reported Pepcid AC (Famotidine) 20 Mg Tablet Unknown Dose PO DAILY Review of Systems Except as stated in HPI: all other systems reviewed are Neg General / Constitutional: No: Fever Cardiovascular: Positive: Chest Pain or Discomfort Respiratory: Positive: Shortness of Breath Gastrointestinal: Positive: Nausea, Abdominal Pain, Indigestion, Loss of Appetite Physical Exam Narrative GENERAL: Well-developed, well-nourished, alert male. Presenting in no acute distress. SKIN: Warm and dry. HEAD: Atraumatic. Normocephalic. EYES: Pupils equal and round. No scleral icterus. No injection or drainage. ENT: No nasal bleeding or discharge. Mucous membranes pink and moist. NECK: Trachea midline. No JVD. CARDIOVASCULAR: Regular rate and rhythm. RESPIRATORY: No accessory muscle use. Clear to auscultation. Breath sounds equal bilaterally. GASTROINTESTINAL: Abdomen firm, distended, tender to palpation in bilateral upper quadrants. Hepatic and splenic margins not palpable. Hypoactive bowel sounds. Positive guarding. MUSCULOSKELETAL: Extremities without clubbing, cyanosis, or edema. No obvious deformities. NEUROLOGICAL: Awake and alert. No obvious cranial nerve deficits. Motor grossly within normal limits. Five out of 5 muscle strength in the arms and legs. Normal speech. PSYCHIATRIC: Appropriate mood and affect; insight and judgment normal. Data Data Last Documented VS Vital Signs Date Time Temp Pulse Resp B/P (MAP) Pulse Ox O2 Delivery O2 Flow Rate FiO2 09/02/17 19:08 72 18 126/76 (93) 98 Room Air 09/02/17 18:08 99.3 Orders Orders Complete Blood Count With Diff (09/02/17 17:56) Comprehensive Metabolic Panel (09/02/17 17:56) Lipase (09/02/17 17:56) Prothrombin Time / Inr (Pt) (09/02/17 17:56) Act Partial Throm Time (Ptt) (09/02/17 17:56) Urinalysis - C+S If Indicated (09/02/17 17:56) Iv Access Insert/Monitor (09/02/17 17:56) Ecg Monitoring (09/02/17 17:56) Oximetry (09/02/17 17:56) NPO (09/02/17 17:56) Morphine Inj (Morphine Inj) (09/02/17 18:00) Pantoprazole Inj (Protonix Inj) (09/02/17 18:00) Sodium Chlor 0.9% 1000 Ml Inj (Ns 1000 M (09/02/17 17:56) Sodium Chloride 0.9% Flush (Ns Flush) (09/02/17 18:00) Electrocardiogram (09/02/17 17:56) Ckmb (Isoenzyme) Profile (09/02/17 17:56) Troponin I (09/02/17 17:56) Ct Abd/Pel W Iv Contrast(Rout) (09/02/17 ) Chest, Single Ap (09/02/17 ) Iohexol 350 Inj (Omnipaque 350 Inj) (09/02/17 18:55) CKMB (09/02/17 18:20) CKMB% (09/02/17 18:20) Morphine Inj (Morphine Inj) (09/02/17 20:00) Sodium Chlor 0.9% 1000 Ml Inj (Ns 1000 M (09/02/17 19:52) Admit Order (Ed Use Only) (09/02/17 20:04) Labs Laboratory Tests Test 09/02/17 18:15 09/02/17 18:20 Urine Color YELLOW Urine Turbidity CLEAR Urine pH 7.0 Urine Specific [place] 1.008 Urine Protein NEG mg/dL Urine Glucose (UA) NEG mg/dL Urine Ketones NEG mg/dL Urine Occult Blood NEG Urine Nitrite NEG Urine Bilirubin NEG Urine Urobilinogen LESS THAN 2.0 MG/DL Urine Leukocyte Esterase NEG Urine RBC 2 /hpf Urine WBC LESS THAN 1 /hpf Urine Mucus FEW /lpf Microscopic Urinalysis Comment CULT NOT INDICATED White Blood Count 9.7 TH/MM3 Red Blood Count 4.69 MIL/MM3 Hemoglobin 16.9 GM/DL Hematocrit 47.9 % Mean Corpuscular Volume 102.0 FL Mean Corpuscular Hemoglobin 36.0 PG Mean Corpuscular Hemoglobin Concent 35.3 % Red Cell Distribution Width 13.7 % Platelet Count 159 TH/MM3 Mean Platelet Volume 9.1 FL Neutrophils (%) (Auto) 76.0 % Lymphocytes (%) (Auto) 13.9 % Monocytes (%) (Auto) 9.2 % Eosinophils (%) (Auto) 0.5 % Basophils (%) (Auto) 0.4 % Neutrophils # (Auto) 7.3 TH/MM3 Lymphocytes # (Auto) 1.3 TH/MM3 Monocytes # (Auto) 0.9 TH/MM3 Eosinophils # (Auto) 0.0 TH/MM3 Basophils # (Auto) 0.0 TH/MM3 CBC Comment DIFF FINAL Differential Comment Prothrombin Time 11.1 SEC Prothromb Time International Ratio 1.1 RATIO Activated Partial Thromboplast Time 25.7 SEC Blood Urea Nitrogen 4 MG/DL Creatinine 0.85 MG/DL Random Glucose 115 MG/DL Total Protein 7.9 GM/DL Albumin 4.0 GM/DL Calcium Level 10.1 MG/DL Alkaline Phosphatase 145 U/L Aspartate Amino Transf (AST/SGOT) 132 U/L Alanine Aminotransferase (ALT/SGPT) 74 U/L Total Bilirubin 1.4 MG/DL Sodium Level 135 MEQ/L Potassium Level 3.9 MEQ/L Chloride Level 95 MEQ/L Carbon Dioxide Level 30.3 MEQ/L Anion Gap 10 MEQ/L Estimat Glomerular Filtration Rate 101 ML/MIN Total Creatine Kinase 106 U/L Creatine Kinase MB 0.5 NG/ML Troponin I LESS THAN 0.02 NG/ML Lipase 1125 U/L MDM Medical Decision Making Medical Screen Exam Complete: Yes Emergency Medical Condition: Yes Interpretation(s) Last Impressions Chest X-Ray 09/02/17 0000 Signed Impressions: CONCLUSION: The lungs are clear. Abdomen/Pelvis CT 09/02/17 0000 Signed Impressions: CONCLUSION: 1. Acute pancreatitis without pseudocyst. 2. Diffuse fatty infiltration of the liver which is enlarged to 24.4 cm. 3. Subsegmental atelectasis at both lung bases. Laboratory Tests Test 09/02/17 18:15 09/02/17 18:20 Urine Color YELLOW Urine Turbidity CLEAR Urine pH 7.0 Urine Specific [place] 1.008 Urine Protein NEG mg/dL Urine Glucose (UA) NEG mg/dL Urine Ketones NEG mg/dL Urine Occult Blood NEG Urine Nitrite NEG Urine Bilirubin NEG Urine Urobilinogen LESS THAN 2.0 MG/DL Urine Leukocyte Esterase NEG Urine RBC 2 /hpf Urine WBC LESS THAN 1 /hpf Urine Mucus FEW /lpf Microscopic Urinalysis Comment CULT NOT INDICATED White Blood Count 9.7 TH/MM3 Red Blood Count 4.69 MIL/MM3 Hemoglobin 16.9 GM/DL Hematocrit 47.9 % Mean Corpuscular Volume 102.0 FL Mean Corpuscular Hemoglobin 36.0 PG Mean Corpuscular Hemoglobin Concent 35.3 % Red Cell Distribution Width 13.7 % Platelet Count 159 TH/MM3 Mean Platelet Volume 9.1 FL Neutrophils (%) (Auto) 76.0 % Lymphocytes (%) (Auto) 13.9 % Monocytes (%) (Auto) 9.2 % Eosinophils (%) (Auto) 0.5 % Basophils (%) (Auto) 0.4 % Neutrophils # (Auto) 7.3 TH/MM3 Lymphocytes # (Auto) 1.3 TH/MM3 Monocytes # (Auto) 0.9 TH/MM3 Eosinophils # (Auto) 0.0 TH/MM3 Basophils # (Auto) 0.0 TH/MM3 CBC Comment DIFF FINAL Differential Comment Prothrombin Time 11.1 SEC Prothromb Time International Ratio 1.1 RATIO Activated Partial Thromboplast Time 25.7 SEC Blood Urea Nitrogen 4 MG/DL Creatinine 0.85 MG/DL Random Glucose 115 MG/DL Total Protein 7.9 GM/DL Albumin 4.0 GM/DL Calcium Level 10.1 MG/DL Alkaline Phosphatase 145 U/L Aspartate Amino Transf (AST/SGOT) 132 U/L Alanine Aminotransferase (ALT/SGPT) 74 U/L Total Bilirubin 1.4 MG/DL Sodium Level 135 MEQ/L Potassium Level 3.9 MEQ/L Chloride Level 95 MEQ/L Carbon Dioxide Level 30.3 MEQ/L Anion Gap 10 MEQ/L Estimat Glomerular Filtration Rate 101 ML/MIN Total Creatine Kinase 106 U/L Creatine Kinase MB 0.5 NG/ML Troponin I LESS THAN 0.02 NG/ML Lipase 1125 U/L Vital Signs Date Time Temp Pulse Resp B/P (MAP) Pulse Ox O2 Delivery O2 Flow Rate FiO2 09/02/17 18:08 99.3 65 18 113/70 (84) 97 Room Air 09/02/17 17:41 98.4 72 19 102/60 (74) 96 Differential Diagnosis Pancreatitis versus cholecystitis versus obstruction versus metabolic abnormality versus ACS versus [place] versus other Narrative Course Patient is a 37-year-old male presenting for evaluation of abdominal pain. Patient's vital signs are stable, labs and imaging ordered and pending. IV access established, patient placed on telemetry monitoring continuous pulse oximetry. Patient was medicated for pain. Initial EKG was reviewed by my attending physician, shows normal sinus rhythm. CBC with no acute findings, lipase 1125, cardiac enzymes are negative 1 set. AST is elevated at 132. Urinalysis unremarkable. No coagulopathy. CT the abdomen and pelvis shows acute pancreatitis without pseudocyst. Diffuse fatty infiltration of the liver which is enlarged to 24.4 cm. Subsegmental atelectasis at both lung bases. Chest x-ray is negative for acute abnormality. Patient will be given maintenance IV fluids, he will be kept n.p.o. He was given an additional dose of morphine for pain. [facility] paged for admission. Patient was advised on lab and imaging findings. He is agreeable to stay. Diagnosis Primary Impression: Pancreatitis Qualified Codes: K85.90 - Acute pancreatitis without necrosis or infection, unspecified Additional Impressions: Elevated liver enzymes Hepatic steatosis Admitting Information Admitting Physician Requests: Observation Condition: Stable Leilani Rankin Sep 02, 2017 18:53
[2017-09-02 18:54] LABS: INTERNATIONAL NORMALIZED RATIO 1.1 RATIO; PROTHROMBIN TIME - PATIENT 11.1 SEC (9.8-11.6)
[2017-09-02] MEDS ORDERED: IOHEXOL 350 MG/ML 10 ML VIAL (for RAD DIAG) IVCONTRAST ONE (18:55)
--- NOTE | 2017-09-02 19:01 | RADRPT ---
EXAM DATE: 09/02/2017 6:54 PM EDT AGE/SEX: 37 years / Male INDICATIONS: Upper abdominal pain X 4 days. CLINICAL DATA: This is the patient's initial encounter. Patient reports that signs and symptoms have been present for 4 - 6 days and indicates a pain score of 7/10. MEDICAL/SURGICAL HISTORY: Pancreatitis. Cardiovascular disease. Seizures None. ORAL CONTRAST: No oral contrast ingested. RADIATION DOSE: 19.12 CTDI (mGy) COMPARISON: [facility] – [place], [place] ABDOMEN & PELVIS W CONTRAST, 06/26/2017. . TECHNIQUE: Multiple contiguous axial images were obtained through the abdomen and pelvis following b olus infusion of 94 ml Omnipaque 350 (iohexol) nonionic water-soluble contrast as a single exam dos e. No oral contrast ingested. Using automated exposure control and adjustment of the mA and/or kV ac cording to patient size, the radiation dose was kept as low as reasonably achievable to obtain optima l diagnostic quality images. FINDINGS: Lung bases demonstrate minimal subsegmental atelectasis. Liver measures 24.4 cm in length with diffus e fatty infiltration. Spleen, adrenals, kidneys unremarkable. There is peripancreatic fat stranding e specially around the pancreatic head most characteristic of acute pancreatitis. There is some fluid i n the anterior pararenal space on the right side. Splenic vein is patent. No calcified gallstones or biliary ductal dilatation. No pelvic masses or adenopathy. No acute bony a bnormalities. CONCLUSION: 1. Acute pancreatitis without pseudocyst. 2. Diffuse fatty infiltration of the liver which is enlarged to 24.4 cm. 3. Subsegmental atelectasis at both lung bases. Electronically signed by: Ponce Child MD 09/02/2017 6:59 PM EDT
[2017-09-02 19:08] VITALS: BP 126/76; PULSE 72; RESP 18; O2SAT 98
[2017-09-02 19:12] LABS: AST (GOT) 132 U/L (15-37); BICARBONATE 30.3 MEQ/L (21.0-32.0); BLOOD UREA NITROGEN 4 MG/DL (7-18); CALCIUM 10.1 MG/DL (8.5-10.1); CHLORIDE 95 MEQ/L (98-107); CREATININE 0.85 MG/DL (0.60-1.30); GLOMERULAR FILTRATION RATE 101 ML/MIN (>89); GLUCOSE,RANDOM 115 MG/DL (74-106); SODIUM (NA) 135 MEQ/L (136-145)
[2017-09-02 19:18] LABS: ALKALINE PHOSPHATASE 145 U/L (45-117); ALT (GPT) 74 U/L (12-78); TOTAL BILIRUBIN ADULT 1.4 MG/DL (0.2-1.0); TOTAL PROTEIN 7.9 GM/DL (6.4-8.2); TROPONIN I LESS THAN 0.02 NG/ML (0.02-0.05)
--- NOTE | 2017-09-02 20:11 | HHI.HP ---
HPI Service [facility] Primary Care Physician Unknown Admission Diagnosis Acute pancreatitis Diagnoses: (1) Pancreatitis Diagnosis: Principal (2) Chest pain Diagnosis: Principal (3) Alcohol abuse Diagnosis: Principal Travel History International Travel<30 Days: No Contact w/Intl Traveler <30 Da: No Traveled to Known Affected Are: No History of Present Illness This is a 37-year-old male with PMH of Anxiety, Depression, h/o Pancreatitis and Alcohol Abuse who presented to ER with complaints of chest and epigastric pain x3 days. Notes associated nausea but no vomiting. Pain is constant, sharp , severe, 10/10, non-radiating, no alleviating factors. Reports decreased PO intake in the last 3 days, including alcohol due to symptoms. On arrival, BP 102/60, HR 72, O2 sat 96% on RA, Afebrile. CBC at baseline. Chemistry essentially unremarkable. Total bili 1.4. LFTs improved in comparison to previous. Troponin negative. Lipase 1125. INR 1.1. CXR with no acute findings. CT Abdomen/Pelvis with acute pancreatitis no pseudocyst, diffuse fatty infiltration of the liver enlarged to 24.4 cm. S/p Protonix and Morphine x2 in ER w/ minimal improvement. Review of Systems Except as stated in HPI: all other systems reviewed are Neg ROS: 14 point review of systems otherwise negative. Past Family Social History Past Medical History PMH: Anxiety, Depression, h/o Pancreatitis and Alcohol Abuse Past Surgical History PAST SURGICAL HISTORY: Tonsillectomy, Tympanostomy Tube Allergies: Coded Allergies: penicillin G (Verified Allergy, Unknown, 06/26/17) Family History PAST FAMILY HISTORY: Reviewed. No h/o DM or CAD Social History PAST SOCIAL HISTORY: Drinks 4-5 beers daily. Negative for tobacco or drugs. Physical Exam Vital Signs Vital Signs Date Time Temp Pulse Resp B/P (MAP) Pulse Ox O2 Delivery O2 Flow Rate FiO2 09/02/17 19:08 72 18 126/76 (93) 98 Room Air 09/02/17 18:08 99.3 65 18 113/70 (84) 97 Room Air 09/02/17 18:08 Room Air 09/02/17 17:41 98.4 72 19 102/60 (40) 96 Physical Exam PE: GENERAL: Pleasant middle-aged white male in no acute distress. HEENT: PERRLA, EOMI. No scleral icterus or conjunctival pallor. No lid lag or facial droop. CARDIOVASCULAR: Regular rate and rhythm. No obvious murmurs to auscultation. No chest tenderness to palpation. RESPIRATORY: No obvious rhonchi or wheezing. Clear to auscultation. Breath sounds equal bilaterally. GASTROINTESTINAL: Abdomen soft, significant tenderness to palpation epigastric region, mildly distended. BS normal. MUSCULOSKELETAL: Extremities without clubbing, cyanosis, or edema. No obvious deformities. NEUROLOGICAL: Awake, alert and oriented x4. No focal neurologic deficits. Moving both upper and lower extremities spontaneously. Laboratory Laboratory Tests Test 09/02/17 18:15 09/02/17 18:20 Urine Color YELLOW Urine Turbidity CLEAR Urine pH 7.0 Urine Specific [place] 1.008 Urine Protein NEG Urine Glucose (UA) NEG Urine Ketones NEG Urine Occult Blood NEG Urine Nitrite NEG Urine Bilirubin NEG Urine Urobilinogen LESS THAN 2.0 Urine Leukocyte Esterase NEG Urine RBC 2 Urine WBC LESS THAN 1 Urine Mucus FEW Microscopic Urinalysis Comment CULT NOT INDICATED White Blood Count 9.7 Red Blood Count 4.69 Hemoglobin 16.9 Hematocrit 47.9 Mean Corpuscular Volume 102.0 Mean Corpuscular Hemoglobin 36.0 Mean Corpuscular Hemoglobin Concent 35.3 Red Cell Distribution Width 13.7 Platelet Count 159 Mean Platelet Volume 9.1 Neutrophils (%) (Auto) 76.0 Lymphocytes (%) (Auto) 13.9 Monocytes (%) (Auto) 9.2 Eosinophils (%) (Auto) 0.5 Basophils (%) (Auto) 0.4 Neutrophils # (Auto) 7.3 Lymphocytes # (Auto) 1.3 Monocytes # (Auto) 0.9 Eosinophils # (Auto) 0.0 Basophils # (Auto) 0.0 CBC Comment DIFF FINAL Differential Comment Prothrombin Time 11.1 Prothromb Time International Ratio 1.1 Activated Partial Thromboplast Time 25.7 Blood Urea Nitrogen 4 Creatinine 0.85 Random Glucose 115 Total Protein 7.9 Albumin 4.0 Calcium Level 10.1 Alkaline Phosphatase 145 Aspartate Amino Transf (AST/SGOT) 132 Alanine Aminotransferase (ALT/SGPT) 74 Total Bilirubin 1.4 Sodium Level 135 Potassium Level 3.9 Chloride Level 95 Carbon Dioxide Level 30.3 Anion Gap 10 Estimat Glomerular Filtration Rate 101 Total Creatine Kinase 106 Creatine Kinase MB 0.5 Troponin I LESS THAN 0.02 Lipase 1125 Result Diagram: 09/02/17181909/02/171819 [facility]: No/Low Risk (score <= 1) Caprini Risk Assessment Model Point Value = 1 Point Value = 2 Point Value = 3 Point Value = 5 Age 41-60 Minor surgery BMI > 25 kg/m2 Swollen legs Varicose veins or History of unexplained or recurrent spontaneous Oral contraceptives or hormone replacement Sepsis (< 1 month) Serious lung disease, including pneumonia (< 1 month) Abnormal pulmonary function Acute myocardial infarction Congestive heart failure (< 1 month) History of inflammatory bowel disease Medical patient at bed rest Age 61-74 Arthroscopic surgery Major open surgery (> 45 min) Laparoscopic surgery (> 45 min) Malignancy Confined to bed (> 72 hours) Immobilizing plaster cast Central venous access Age >= 75 History of VTE Family history of VTE Factor V Leiden Prothrombin [id number] Lupus anticoagulant Anticardiolipin antibodies Elevated serum homocysteine Heparin-induced thrombocytopenia Other congenital or acquired thrombophilia Stroke (< 1 month) Elective arthroplasty Hip, pelvis, or leg fracture Acute spinal cord injury (< 1 month) Prophylaxis Regimen Total Risk Factor Score Risk Level Prophylaxis Regimen 0-1 Low Early ambulation 2 Moderate Order ONE of the following: *Sequential Compression Device (SCD) *Heparin 5000 units SQ BID 3-4 Higher Order ONE of the following medications: *Heparin 5000 units SQ TID *Enoxaparin/Lovenox 40 mg SQ daily (WT < 150 kg, CrCl > 30 mL/min) *Enoxaparin/Lovenox 30 mg SQ daily (WT < 150 kg, CrCl > 10-29 mL/min) *Enoxaparin/Lovenox 30 mg SQ BID (WT < 150 kg, CrCl > 30 mL/min) AND/OR *Sequential Compression Device (SCD) 5 or more Highest Order ONE of the following medications: *Heparin 5000 units SQ TID (Preferred with Epidurals) *Enoxaparin/Lovenox 40 mg SQ daily (WT < 150 kg, CrCl > 30 mL/min) *Enoxaparin/Lovenox 30 mg SQ daily (WT < 150 kg, CrCl > 10-29 mL/min) *Enoxaparin/Lovenox 30 mg SQ BID (WT < 150 kg, CrCl > 30 mL/min) AND *Sequential Compression Device (SCD) Assessment and Plan Problem List: (1) Pancreatitis ICD Code: K85.90 - Acute pancreatitis without necrosis or infection, unspecified (2) Chest pain ICD Code: R07.9 - Chest pain, unspecified (3) Alcohol abuse ICD Code: F10.10 - Alcohol abuse, uncomplicated Assessment and Plan A/P: 1. Pancreatitis: Alcohol-induced, h/o Pancreatitis in the past, c/o epigastric pain, Lipase 1125, CT Abd/Pelvis w/ acute pancreatitis, no pseudocyst , images reviewed by me. Admit for Observation, NPO, advance diet as tolerated , IVF, Protonix, analgesics/antiemetics as needed. 2. Chest Pain: Likely secondary to above, initial trop negative, telemetry, check serial cardiac enzymes to eval for underlying ischemia. 3. Alcohol Abuse: Drinks daily, 4-5 beers, CIWA, Seizure Precautions, MVT/ Thiamine/Folate replacement. 4. DVT Prophylaxis: SCD/Teds 5. Social work for d/c planning as needed 6. Case discussed w/ ER physician at length, labs/records/imaging reviewed by me. Problem Qualifiers (1) Pancreatitis: Qualified Codes: K85.90 - Acute pancreatitis without necrosis or infection, unspecified Jesusita Morrison MD Sep 02, 2017 20:11
[2017-09-02] MEDS ORDERED: BISACODYL 10 MG SUPP RECTAL PRN (20:15)
[2017-09-02] MEDS ORDERED: SENNOSIDES 8.6 MG TAB PO PRN (20:15)
[2017-09-02] MEDS ORDERED: LORazepam 2 MG TAB PO PRN (20:15)
[2017-09-02] MEDS ORDERED: MORPHINE SULFATE 4 MG/ML INJ IV PUSH PRN (20:15)
[2017-09-02] MEDS ORDERED: FLUMAZENIL 0.5 MG/5 ML VIAL IV PUSH PRN (20:15)
[2017-09-02] MEDS ORDERED: HALOPERIDOL LACTATE 5 MG/ML AMP IM PRN (20:15)
[2017-09-02] MEDS ORDERED: ACETAMINOPHEN 325 MG TAB PO PRN (20:15)
[2017-09-02] MEDS ORDERED: LACTULOSE SYRUP 20 GM/30 ML CUP PO PRN (20:15)
[2017-09-02] MEDS ORDERED: LORazepam 2 MG/ML VIAL IV PUSH PRN ×4 (20:15)
[2017-09-02] MEDS ORDERED: METOCLOPRAMIDE HCL 10 MG/2 ML VIAL IV PUSH PRN (20:15)
[2017-09-02] MEDS ORDERED: MAGNESIUM HYDROXIDE SUSP 30 ML CUP PO PRN (20:15)
[2017-09-02] MEDS: SODIUM CHLOR 0.9% 1000 ML INJ 1,000 ML IV SCH (20:37)
[2017-09-02] MEDS: LORazepam 1 MG TAB PO PRN (20:37)
[2017-09-02] MEDS: THIAMINE INJ 100 MG in SODIUM CHLORIDE 0.9% INJ 100 ML IV SCH (20:37)
[2017-09-02] MEDS: HYDROmorphone HCL PF 2 MG/ML VIAL IV PUSH PRN (20:37)
[2017-09-02] MEDS: DOCUSATE SODIUM 50 MG/SENNA 8.6 MG TAB PO SCH (20:38)
[2017-09-02] MEDS: SODIUM CHLORIDE 0.9% FLUSH 10 ML FLUSH IV FLUSH SCH (20:38)
[2017-09-02 21:37] VITALS: BP 128/84; PULSE 81; RESP 17; TEMP 98.7; O2SAT 94
[2017-09-02 23:53] VITALS: BP 150/70; PULSE 84; RESP 17; TEMP 98.5; O2SAT 95
[2017-09-03] MEDS: LORazepam 1 MG TAB PO PRN ×2 (00:41→07:14)
[2017-09-03] MEDS: HYDROmorphone HCL PF 2 MG/ML VIAL IV PUSH PRN ×4 (03:01→21:34)
[2017-09-03 04:03] VITALS: BP 135/91; PULSE 107; RESP 17; TEMP 98.5; O2SAT 93
[2017-09-03] MEDS: SODIUM CHLOR 0.9% 1000 ML INJ 1,000 ML IV SCH ×3 (05:35→21:32)
[2017-09-03 06:24] LABS: AUTOMATED NEUTROPHIL # 6.9 TH/MM3 (1.8-7.7); BASOPHIL % 0.3 % (0.0-2.0); EOSINOPHIL % 0.3 % (0.0-4.0); HEMATOCRIT 42.6 % (39.0-51.0); HEMOGLOBIN 15.1 GM/DL (13.0-17.0); LYMPH % 13.9 % (9.0-44.0); LYMPHOCYTE # 1.3 TH/MM3 (1.0-4.8); MEAN CORPUSCULAR HEMOGLOBIN 35.9 PG (27.0-34.0); MEAN CORPUSCULAR HGB CONC 35.5 % (32.0-36.0); MEAN PLATELET VOLUME 9.1 FL (7.0-11.0); MONO % 10.8 % (0.0-8.0); NEUT % 74.7 % (16.0-70.0); PLATELET COUNT 142 TH/MM3 (150-450); RED BLOOD COUNT 4.22 MIL/MM3 (4.50-5.90); RED CELL DISTRIBUTION WIDTH 13.5 % (11.6-17.2); WHITE BLOOD COUNT 9.3 TH/MM3 (4.0-11.0)
[2017-09-03 06:51] LABS: ALBUMIN 3.4 GM/DL (3.4-5.0); AST (GOT) 78 U/L (15-37); BLOOD UREA NITROGEN 3 MG/DL (7-18); CALCIUM 9.1 MG/DL (8.5-10.1); CHLORIDE 99 MEQ/L (98-107); CREATININE 0.76 MG/DL (0.60-1.30); GLOMERULAR FILTRATION RATE 115 ML/MIN (>89); GLUCOSE,RANDOM 95 MG/DL (74-106); SODIUM (NA) 137 MEQ/L (136-145)
[2017-09-03 06:55] LABS: ALKALINE PHOSPHATASE 125 U/L (45-117); ALT (GPT) 56 U/L (12-78); TOTAL BILIRUBIN ADULT 1.3 MG/DL (0.2-1.0); TOTAL PROTEIN 6.8 GM/DL (6.4-8.2)
[2017-09-03 07:00] VITALS: BP 138/94; PULSE 96; RESP 18; TEMP 98.9; O2SAT 94
[2017-09-03] MEDS: SODIUM CHLORIDE 0.9% FLUSH 10 ML FLUSH IV FLUSH SCH ×2 (09:00→21:32)
[2017-09-03] MEDS: DOCUSATE SODIUM 50 MG/SENNA 8.6 MG TAB PO SCH ×2 (10:01→21:34)
[2017-09-03] MEDS: PANTOPRAZOLE SOD 40 MG DELAYED RELEASE TAB PO SCH ×2 (10:01→21:34)
[2017-09-03] MEDS: MULTIVITAMINS/MINERALS THERAPEUTIC TAB PO SCH (10:01)
[2017-09-03] MEDS: FOLIC ACID 1 MG TAB PO SCH (10:01)
[2017-09-03 11:10] VITALS: BP 131/75; PULSE 93; RESP 18; TEMP 98.9; O2SAT 94
[2017-09-03] MEDS: POTASSIUM CHLOR 10 MEQ PREMIX 100 ML IV SCH ×3 (11:42→14:08)
[2017-09-03] MEDS ORDERED: POTASSIUM CHLORIDE 20 MEQ CONTROLLED RELEASE TAB PO ONE (13:15)
--- NOTE | 2017-09-03 13:22 | HHI.PR ---
Subjective Remarks Patient says he is feeling a little better. Denies any chest pain shortness of breath. Still with some nausea. reports abdominal pain is currently controlled. He says he drinks quite a bit, will stop drinking alcohol after this episode. Objective Vital Signs Date Time Temp Pulse Resp B/P (MAP) Pulse Ox O2 Delivery O2 Flow Rate FiO2 09/03/17 11:10 98.9 93 18 131/75 (93) 94 09/03/17 07:00 98.9 96 18 138/94 (109) 94 09/03/17 04:03 98.5 107 17 135/91 (106) 93 09/02/17 23:53 98.5 84 17 150/70 (96) 95 09/02/17 21:37 98.7 81 17 128/84 (99) 94 09/02/17 20:53 09/02/17 19:08 72 18 126/76 (93) 98 Room Air 09/02/17 18:08 99.3 65 18 113/70 (84) 97 Room Air 09/02/17 18:08 Room Air 09/02/17 17:41 98.4 72 19 102/60 (74) 96 I/O 09/02/17 09/02/17 09/02/17 09/03/17 09/03/17 09/03/17 07:00 15:00 23:00 07:00 15:00 23:00 # Voids 1 Result Diagram: 09/03/17 0524 09/03/17 0524 Objective Remarks GENERAL: Patient sitting up in bed. Appears comfortable. Alert and oriented 3. SKIN: Warm and dry. HEAD: Normocephalic. EYES: No scleral icterus. No injection or drainage. NECK: Supple, trachea midline. No JVD. CARDIOVASCULAR: Regular rate and rhythm without murmurs, gallops, or rubs. RESPIRATORY: Breath sounds equal bilaterally. No accessory muscle use. GASTROINTESTINAL: Abdomen soft, non-tender, nondistended. MUSCULOSKELETAL: No cyanosis, or edema. BACK: Nontender without obvious deformity. No CVA tenderness. A/P Assessment and Plan // Pancreatitis: Alcohol-induced, h/o Pancreatitis in the past, c/o epigastric pain, Lipase 1125, CT Abd/Pelvis w/ acute pancreatitis, no pseudocyst, images reviewed by me. Admit for Observation, NPO, advance diet as tolerated, IVF, Protonix, analgesics/antiemetics as needed. = Bilirubin slightly elevated. Will order liver ultrasound. //Chest Pain: Likely secondary to above, initial trop negative, telemetry, check serial cardiac enzymes to eval for underlying ischemia. // Alcohol Abuse: //Acute alcohol withdrawal - drinks daily, 4-5 beers, CIWA, Seizure Precautions, MVT/Thiamine/Folate replacement. -Schedule Librium. Will need tapered discharge appreciate case management assistance. /Hypokalemia. 3.2 Replace. // DVT Prophylaxis: SCD/Teds Discharge Planning Case management following for safe alcohol discharge plan. Patient will need Librium taper at discharge. Hopefully can go home tomorrow if feeling all right. Bryan Lozada MD Sep 03, 2017 13:22
--- NOTE | 2017-09-03 14:04 | RADRPT ---
EXAM DATE: 09/03/2017 2:00 PM EDT AGE/SEX: 37 years / Male INDICATIONS: Increased lab values. CLINICAL DATA: This is the patient's initial encounter. Patient reports that signs and symptoms have been present for 4 - 6 days and indicates a pain score of 5/10. MEDICAL/SURGICAL HISTORY: Pancreatitis. Seizures. Head trauma. Liver disease. Tonsillectomy. Tympanostomy tube. COMPARISON: No prior exams available for comparison. MEASUREMENTS (cm x cm x cm): Liver:__ 23.0 cm length Common Bile Duct:__ 7mm Right Kidney:__ 11.2 x 5.2 x 1.6 cm FINDINGS: Liver: Coarse echotexture suggesting fatty change or diffuse hepatocellular process. Portal Vein: Hepatopedal flow seen in portal vein. Common Duct: Mildly prominent at 7 mm Gallbladder: Demonstrates no wall thickening or pericholecystic fluid. No stones visualized. Gallbla dder Wall: 3 mm Pancreas: Not well visualized. Right Kidney: No mass or hydronephrosis Other: None. CONCLUSION: 1. Fatty liver enlarged to 23 cm. No gallstones. 2. Bile duct mildly prominent. No free fluid. No right-sided hydronephrosis. Electronically signed by: Ponce Child MD 09/03/2017 2:03 PM EDT
--- NOTE | 2017-09-03 14:33 | EKG ---
Date Performed: 09/03/2017 Time Performed: 01:04:36 PTAGE: 37 years EKG: Sinus rhythm NORMAL ECG NO PREVIOUS TRACING DOCTOR: Miguel Angel Walter Interpretating Date/Time 09/03/2017 14:31:08
--- NOTE | 2017-09-03 14:41 | EKG ---
Date Performed: 09/02/2017 Time Performed: 16:59:29 PTAGE: 37 years EKG: Sinus rhythm NORMAL ECG NO PREVIOUS TRACING DOCTOR: Miguel Angel Walter Interpretating Date/Time 09/03/2017 14:38:46
[2017-09-03 15:56] VITALS: BP 160/91; PULSE 101; RESP 18; TEMP 98; O2SAT 97
[2017-09-03 19:44] VITALS: BP 130/93; PULSE 91; RESP 17; TEMP 98.4; O2SAT 97
[2017-09-03] MEDS: THIAMINE INJ 100 MG in SODIUM CHLORIDE 0.9% INJ 100 ML IV SCH (21:32)
[2017-09-03 23:40] VITALS: BP 132/72; PULSE 100; RESP 16; TEMP 98.7; O2SAT 94
[2017-09-04] MEDS: SODIUM CHLOR 0.9% 1000 ML INJ 1,000 ML IV SCH ×2 (02:07→07:49)
[2017-09-04] MEDS: HYDROmorphone HCL PF 2 MG/ML VIAL IV PUSH PRN ×2 (02:23→07:45)
[2017-09-04 04:07] VITALS: BP 121/66; PULSE 107; RESP 18; TEMP 98.5; O2SAT 92
[2017-09-04 07:34] LABS: AUTOMATED NEUTROPHIL # 4.7 TH/MM3 (1.8-7.7); BASOPHIL % 0.4 % (0.0-2.0); EOSINOPHIL # 0.1 TH/MM3 (0-0.4); HEMATOCRIT 43.2 % (39.0-51.0); HEMOGLOBIN 15.2 GM/DL (13.0-17.0); LYMPH % 19.4 % (9.0-44.0); LYMPHOCYTE # 1.3 TH/MM3 (1.0-4.8); MEAN CELL VOLUME 102.4 FL (80.0-100.0); MEAN CORPUSCULAR HEMOGLOBIN 36.2 PG (27.0-34.0); MEAN CORPUSCULAR HGB CONC 35.3 % (32.0-36.0); MEAN PLATELET VOLUME 9.6 FL (7.0-11.0); MONO % 9.8 % (0.0-8.0); MONOCYTE # 0.7 TH/MM3 (0-0.9); NEUT % 68.4 % (16.0-70.0); PLATELET COUNT 147 TH/MM3 (150-450); RED BLOOD COUNT 4.22 MIL/MM3 (4.50-5.90); RED CELL DISTRIBUTION WIDTH 13.4 % (11.6-17.2); WHITE BLOOD COUNT 6.9 TH/MM3 (4.0-11.0)
[2017-09-04] MEDS: SODIUM CHLORIDE 0.9% FLUSH 10 ML FLUSH IV FLUSH SCH (07:59)
[2017-09-04 08:00] VITALS: BP 133/85; PULSE 106; RESP 18; TEMP 98.3; O2SAT 93
[2017-09-04] MEDS: MULTIVITAMINS/MINERALS THERAPEUTIC TAB PO SCH (08:00)
[2017-09-04] MEDS: FOLIC ACID 1 MG TAB PO SCH (08:00)
[2017-09-04] MEDS: DOCUSATE SODIUM 50 MG/SENNA 8.6 MG TAB PO SCH (08:01)
[2017-09-04] MEDS: PANTOPRAZOLE SOD 40 MG DELAYED RELEASE TAB PO SCH (08:01)
[2017-09-04 08:12] LABS: ALBUMIN 3.5 GM/DL (3.4-5.0); BICARBONATE 27.6 MEQ/L (21.0-32.0); CALCIUM 9.4 MG/DL (8.5-10.1); CREATININE 0.72 MG/DL (0.60-1.30); MAGNESIUM 2.1 MG/DL (1.5-2.5); PHOSPHORUS 3.8 MG/DL (2.5-4.9)
--- NOTE | 2017-09-04 09:13 | HHI.PR ---
Subjective Remarks Patient says he is feeling a little better today. Reports pain is improving. Tolerating diet. Objective Vital Signs Date Time Temp Pulse Resp B/P (MAP) Pulse Ox O2 Delivery O2 Flow Rate FiO2 09/04/17 08:00 98.3 106 18 133/85 (101) 93 09/04/17 04:07 98.5 107 18 121/66 (84) 92 09/03/17 23:40 98.7 100 16 132/72 (92) 94 09/03/17 19:44 98.4 91 17 130/93 (105) 97 09/03/17 15:56 98.0 101 18 160/91 (114) 97 09/03/17 11:10 98.9 93 18 131/75 (93) 94 I/O 09/03/17 09/03/17 09/03/17 09/04/17 09/04/17 09/04/17 07:00 15:00 23:00 07:00 15:00 23:00 Intake Total 200 ml 100 ml 1000 ml Balance 200 ml 100 ml 1000 ml Intake IV Total 200 ml 100 ml 1000 ml # Voids 1 1 # Bowel Movements 0 Result Diagram: 09/04/17 0612 09/04/17 0612 Objective Remarks GENERAL: Patient sitting up in bed. Appears comfortable. Alert and oriented 3. SKIN: Warm and dry. HEAD: Normocephalic. EYES: No scleral icterus. No injection or drainage. NECK: Supple, trachea midline. No JVD. CARDIOVASCULAR: Regular rate and rhythm without murmurs, gallops, or rubs. RESPIRATORY: Breath sounds equal bilaterally. No accessory muscle use. GASTROINTESTINAL still some tenderness to deep palpation. No rebound or guarding. MUSCULOSKELETAL: No cyanosis, or edema. BACK: Nontender without obvious deformity. No CVA tenderness. A/P Assessment and Plan // Pancreatitis: Alcohol-induced, h/o Pancreatitis in the past, c/o epigastric pain, Lipase 1125, CT Abd/Pelvis w/ acute pancreatitis, no pseudocyst, images reviewed by me. Admit for Observation, NPO, advance diet as tolerated, IVF, Protonix, analgesics/antiemetics as needed. = Bilirubin slightly elevated. Will order liver ultrasound. = Liver ultrasound with enlarged liver up to 23 cm. No gallstones. Apart from 7 mm bile duct. rpt BR pending. //Chest Pain: Likely secondary to above, initial trop negative, telemetry, check serial cardiac enzymes to eval for underlying ischemia. // Alcohol Abuse: //Acute alcohol withdrawal - drinks daily, 4-5 beers, CIWA, Seizure Precautions, MVT/Thiamine/Folate replacement. -Schedule Librium. Will need tapered discharge appreciate case management assistance. /Hypokalemia. 3.2 Replace. = Improved to 3.7 after placement. // DVT Prophylaxis: SCD/Teds Discharge Planning Case management following for safe alcohol discharge plan. Patient will need Librium taper at discharge. = Hopefully go home this afternoon tolerating diet. Bryan Lozada MD Sep 04, 2017 09:12
[2017-09-04] MEDS ORDERED: NALOXONE HCL 0.4 MG/ML AMP IV PUSH PRN (09:15)
[2017-09-04] MEDS ORDERED: CHLO10CA5 PO (09:15)
[2017-09-04] MEDS ORDERED: OXYC-392 PO (09:15)
--- NOTE | 2017-09-04 09:21 | HHI.DS ---
Discharge Summary Admission Date Sep 02, 2017 at 20:05 Discharge Date: Sep 04, 2017 Admitting Diagnosis Acute pancreatitis (1) Pancreatitis ICD Code: K85.90 - Acute pancreatitis without necrosis or infection, unspecified (2) Chest pain ICD Code: R07.9 - Chest pain, unspecified (3) Alcohol abuse ICD Code: F10.10 - Alcohol abuse, uncomplicated Procedures No invasive procedures. Brief History - From Admission This is a 37-year-old male with PMH of Anxiety, Depression, h/o Pancreatitis and Alcohol Abuse who presented to ER with complaints of chest and epigastric pain x3 days. Notes associated nausea but no vomiting. Pain is constant, sharp , severe, 10/10, non-radiating, no alleviating factors. Reports decreased PO intake in the last 3 days, including alcohol due to symptoms. On arrival, BP 102/60, HR 72, O2 sat 96% on RA, Afebrile. CBC at baseline. Chemistry essentially unremarkable. Total bili 1.4. LFTs improved in comparison to previous. Troponin negative. Lipase 1125. INR 1.1. CXR with no acute findings. CT Abdomen/Pelvis with acute pancreatitis no pseudocyst, diffuse fatty infiltration of the liver enlarged to 24.4 cm. S/p Protonix and Morphine x2 in ER w/ minimal improvement. CBC/BMP: 09/04/17 0612 09/04/17 0612 Significant Findings Laboratory Tests Test 09/02/17 18:15 09/02/17 18:20 09/02/17 23:52 09/03/17 05:24 Urine Mucus FEW /lpf (OCC) Mean Corpuscular Volume 102.0 FL (80.0-100.0) 101.0 FL (80.0-100.0) Mean Corpuscular Hemoglobin 36.0 PG (27.0-34.0) 35.9 PG (27.0-34.0) Neutrophils (%) (Auto) 76.0 % (16.0-70.0) 74.7 % (16.0-70.0) Monocytes (%) (Auto) 9.2 % (0.0-8.0) 10.8 % (0.0-8.0) Blood Urea Nitrogen 4 MG/DL (7-18) 3 MG/DL (7-18) Random Glucose 115 MG/DL (74-106) Alkaline Phosphatase 145 U/L (45-117) 125 U/L (45-117) Aspartate Amino Transf (AST/SGOT) 132 U/L (15-37) 78 U/L (15-37) Total Bilirubin 1.4 MG/DL (0.2-1.0) 1.3 MG/DL (0.2-1.0) Sodium Level 135 MEQ/L (136-145) Chloride Level 95 MEQ/L (98-107) Troponin I LESS THAN 0.02 NG/ML LESS THAN 0.02 NG/ML Lipase 1125 U/L (73-393) Red Blood Count 4.22 MIL/MM3 (4.50-5.90) Platelet Count 142 TH/MM3 (150-450) Monocytes # (Auto) 1.0 TH/MM3 (0-0.9) Potassium Level 3.2 MEQ/L (3.5-5.1) Test 09/04/17 06:12 Red Blood Count 4.22 MIL/MM3 (4.50-5.90) Mean Corpuscular Volume 102.4 FL (80.0-100.0) Mean Corpuscular Hemoglobin 36.2 PG (27.0-34.0) Platelet Count 147 TH/MM3 (150-450) Monocytes (%) (Auto) 9.8 % (0.0-8.0) Blood Urea Nitrogen 2 MG/DL (7-18) Imaging Last Impressions Liver Ultrasound 09/03/17 0000 Signed Impressions: CONCLUSION: 1. Fatty liver enlarged to 23 cm. No gallstones. 2. Bile duct mildly prominent. No free fluid. No right-sided hydronephrosis. Chest X-Ray 09/02/17 0000 Signed Impressions: CONCLUSION: The lungs are clear. Abdomen/Pelvis CT 09/02/17 0000 Signed Impressions: CONCLUSION: 1. Acute pancreatitis without pseudocyst. 2. Diffuse fatty infiltration of the liver which is enlarged to 24.4 cm. 3. Subsegmental atelectasis at both lung bases. Hospital Course Patient presented with lipase of 1125, CT abdomen showed acute pancreatitis, no pseudocyst. Mild elevation in bilirubin up to 1.4. Liver ultrasound showed mildly dilated common bile duct of 7 mm, enlarged liver, no gallstones. Patient reports heavy drinking. Says he will stop drinking. Patient was also treated for alcohol withdrawal on CIWA protocol. Will be discharged on Librium taper. For problem based summary from most recent progress note, please see below. // Pancreatitis: Alcohol-induced, h/o Pancreatitis in the past, c/o epigastric pain, Lipase 1125, CT Abd/Pelvis w/ acute pancreatitis, no pseudocyst, images reviewed by me. Admit for Observation, NPO, advance diet as tolerated, IVF, Protonix, analgesics/antiemetics as needed. = Bilirubin slightly elevated. Will order liver ultrasound. = Liver ultrasound with enlarged liver up to 23 cm. No gallstones. Apart from 7 mm bile duct. rpt BR pending. //Chest Pain: Likely secondary to above, initial trop negative, telemetry, check serial cardiac enzymes to eval for underlying ischemia. // Alcohol Abuse: //Acute alcohol withdrawal - drinks daily, 4-5 beers, CIWA, Seizure Precautions, MVT/Thiamine/Folate replacement. -Schedule Librium. Will need tapered discharge appreciate case management assistance. /Hypokalemia. 3.2 Replace. = Improved to 3.7 after placement. // DVT Prophylaxis: SCD/Teds Discharge Planning Case management following for safe alcohol discharge plan. Patient will need Librium taper at discharge. = Hopefully go home this afternoon tolerating diet. Pt Condition on Discharge: Good Discharge Disposition: Discharge Home Discharge Time: > 30 minutes Discharge Instructions DIET: Follow Instructions for: As Tolerated, No Restrictions Activities you can perform: Regular-No Restrictions Other Activity Instructions: no alcohol. Follow up Referrals: PCP Follow-up - 1 Week with [facility] New Medications: Chlordiazepoxide HCl (Chlordiazepoxide HCl) 10 Mg Capsule 10 MG PO TID for Alcohol Detox, #18 CAP Take THREE Times daily for 3 Days, then TWICE daily for 3 days, then ONCE a day for 3 Days. Oxycodone (Oxycodone) 5 Mg Tab 1-2 TAB PO Q6HR PRN for PAIN SCALE 3 TO 5, #20 TAB Continued Medications: Famotidine (Pepcid AC) 20 Mg Tablet Unknown Dose PO DAILY Folic Acid (Folic Acid) 1 Mg Tablet 1 MG PO DAILY for folate deficiency, #30 TAB Thiamine HCl (Gnp Vitamin B-1) 100 Mg Tab 100 MG PO DAILY for Alcohol Detox, #30 TAB [Lactulose Liq] () 30 ML SYRP 30 ML PO BID for confusion, #900 Discontinued Medications: Chlordiazepoxide HCl (Chlordiazepoxide HCl) 25 Mg Capsule 25 MG PO TID for Alcohol Detox, #9 CAP Take THREE Times daily for 1 Day, then TWICE daily for 2 days, then ONCE a day for 2 Days. Oxycodone (Oxycodone) 10 Mg Tab 10 MG PO Q6H PRN for PAIN SCALE 1 TO 10, #10 TAB Bryan Lozada MD Sep 04, 2017 09:21
[2017-09-04 11:55] VITALS: BP 128/74; PULSE 84; RESP 18; TEMP 98.3; O2SAT 95
[2017-09-04 13:04] LABS: ALBUMIN 3.5 GM/DL (3.4-5.0); DIRECT BILIRUBIN ADULT 0.9 MG/DL (0.0-0.2)
[2017-09-04 13:06] LABS: INDIRECT BILIRUBIN 0.8 MG/DL (0.0-0.8); TOTAL BILIRUBIN ADULT 1.7 MG/DL (0.2-1.0); TOTAL PROTEIN 7.1 GM/DL (6.4-8.2)
[2017-09-06] MEDS ORDERED: THIAMINE HCL 100 MG TAB PO SCH (09:00)
== END 2017-09-04 14:06 | disposition home or self-care (01) ==
LOC: NEPE 17:35 → NEDA 20:05 → NEPGCP 20:58 → UNDODISOB 09-03 12:39 → NEPFCDU 09-03 14:46
PROVIDERS: ADMIT Internal Medicine; ATTEND Internal Medicine
DX: K85.20 Alcohol induced acute pancreatitis without necrosis or infection (principal); F10.239 Alcohol dependence with withdrawal, unspecified; E87.6 Hypokalemia; R07.89 Other chest pain; K58.9 Irritable bowel syndrome, unspecified; K76.0 Fatty (change of) liver, not elsewhere classified; J98.11 Atelectasis; K83.8 Other specified diseases of biliary tract; F41.9 Anxiety disorder, unspecified; F32.9 Major depressive disorder, single episode, unspecified; Z79.899 Other long term (current) drug therapy; Z87.891 Personal history of nicotine dependence
CPT/HCPCS: 71045; 74177; 76705; 80053; 80069; 80076; 81001; 82550; 82552; 82948; 83690; 83735; 84484; 85025; 85610; 85730; 93005; 96361; 96365; 96366; 96367; 96375; 96376; 99285; C9113; G0378; J1170; J2270; J3411; J3480; J7030; Q9967

== ENCOUNTER 2017-10-05 18:15 | Inpatient (IN) ==
[2017-10-06] MEDS ORDERED: Morphine Inj 4 MG/ML Vial IV.PUSH ONE ×2 (00:34→04:05)
[2017-10-06] MEDS ORDERED: Sod Chloride 0.9% Inj 1,000 ML IV.SIG ONE ×2 (00:34→02:16)
--- NOTE | 2017-10-06 01:17 | ED ---
[facility] General Chief Complaint: Chest Pain Stated Complaint: Chest,Back & Pancreatic pain Time Seen by Provider: 10/06/17 00:26 Source: patient and old records reviewed Limitations: no limitations History of Present Illness HPI narrative: Is a 37-year-old male presents emerged from complaining of epigastric abdominal pain and chest pain ongoing for the past several days after he drank alcohol. He has a history of alcoholic pancreatitis. States this feels similar but is worse to his previous episodes. No shortness of breath. Some vomiting. No fevers. Pain radiates to his shoulder blades. No relief with [id number] medications. Patient denies any history gastritis. No regular NSAID use. Complete Quality Measures for STEMI Alert Patients Related Data Home Medications Medication Instructions Recorded Confirmed esomeprazole magnesium [Nexium] 40 mg PO DAILY 10/05/17 10/05/17 Allergies Allergy/AdvReac Type Severity Reaction Status Date / Time penicillin G Allergy Unknown Restlessnes Verified 10/05/17 23:51 s Review of Systems ROS Unobtainable All other systems reviewed negative except as stated in HPI [facility] Medical History Medical History AA (alcohol abuse) (Acute) Acute pancreatitis (Acute) Social History Social History Substance History: No History of Abuse Second Hand Smoke Exposure: No Smoking Status: Never smoker How Often Do You Have a Drink Containing Alcohol: 2 to 3 times a week Recent Travel in [facility] within the Last 8 Weeks: No Recent Out of Country Travel within the Last 8 Weeks: No Immunization History Tetanus Immunization: Unsure Hx Influenza Vaccine This Season: No Exam Narrative Exam Narrative: GENERAL: 37-year-old man, no acute distress. SKIN: Focused skin assessment warm/dry. HEAD: Atraumatic. Normocephalic. EYES: Pupils equal and round. No scleral icterus. No injection or drainage. ENT: No nasal bleeding or discharge. Mucous membranes pink and moist. NECK: Trachea midline. No JVD. CARDIOVASCULAR: Regular rate and rhythm. No murmur appreciated. RESPIRATORY: No accessory muscle use. Clear to auscultation. Breath sounds equal bilaterally. GASTROINTESTINAL: Abdomen is flat soft. Moderate epigastric tenderness. No rebound or guarding. MUSCULOSKELETAL: No obvious deformities. No clubbing. No cyanosis. No edema. NEUROLOGICAL: Awake and alert. No obvious cranial nerve deficits. Motor grossly within normal limits. Normal speech. PSYCHIATRIC: Appropriate mood and affect; insight and judgment normal. Course Initial Documented Vital Signs Temperature 98.4 F 10/05/17 20:33 Pulse Rate 65 10/05/17 20:33 Respiratory Rate 18 10/05/17 20:33 Blood Pressure 141/86 H 10/05/17 20:33 Pulse Oximetry 97 10/05/17 20:33 Last Documented Vital Signs Temperature 98.4 F 10/05/17 20:33 Pulse Rate 88 10/06/17 04:35 Respiratory Rate 18 10/06/17 04:35 Blood Pressure 156/90 H 10/06/17 04:35 Pulse Oximetry 95 10/06/17 04:35 Medical Decision Making MDM Narrative Medical decision making narrative: 37-year-old man, history of alcoholic pancreatitis, here with the same. Labs show acute pancreatitis. Given multiple doses of medication in the ED, remained very pain sub-dissociative dose ketamine without effect. Recommend admission for treatment. Lab Data Lab results reviewed: Yes I reviewed the patient's lab results. Result diagrams: 10/06/17 00:49 10/06/17 00:49 Lab Results 10/06/17 10/06/17 Range/Units 00:49 00:49 WBC 14.8 H (4.0-11.0) th/mm3 RBC 5.23 (4.50-5.90) mil/mm3 Hgb 18.3 H (13.0-17.0) gm/dL Hct 52.3 H (39.0-51.0) % MCV 100.0 (80.0-100.0) fL MCH 35.0 H (27.0-34.0) pg MCHC 35.0 (32.0-36.0) % RDW 13.3 (11.6-17.2) % Plt Count 189 (150-450) th/mm3 MPV 9.4 (7.0-11.0) fL Neut % (Auto) 82.5 H (16.0-70.0) % Lymph % (Auto) 9.4 (9.0-44.0) % [place] % (Auto) 7.6 (0.0-8.0) % Eos % (Auto) 0.1 (0.0-4.0) % Baso % (Auto) 0.4 (0.0-2.0) % Neut # (Auto) 12.2 H (1.8-7.7) th/mm3 Lymph # (Auto) 1.4 (1.0-4.8) th/mm3 [place] # (Auto) 1.1 H (0.0-0.9) th/mm3 Eos # (Auto) 0.0 (0.0-0.4) th/mm3 Baso # (Auto) 0.1 (0.0-0.2) th/mm3 WBC Differential . Differential Comment Auto diff final Sodium 138 (136-145) meq/L Potassium 3.8 (3.5-5.1) meq/L Chloride 99 (98-107) meq/L Carbon Dioxide 25.5 (21.0-32.0) meq/L Anion Gap 14 (5-15) meq/L BUN 5 L (7-18) mg/dL Creatinine 0.82 (0.60-1.30) mg/dL Estimated GFR Greater than 89 (>89) mL/min Random Glucose 123 H (74-106) mg/dL Calcium 9.9 (8.5-10.1) mg/dL Total Bilirubin 1.3 H (0.2-1.0) mg/dL AST 89 H (15-37) U/L ALT 63 (12-78) U/L Alkaline Phosphatase 164 H (45-117) U/L Total Protein 8.2 (6.4-8.2) g/dL Albumin 4.4 (3.4-5.0) g/dL Lipase 1948 H (73-393) U/L Discharge Plan Discharge Disposition Patient Disposition: 30 Still Patient Physicians Team ED Provider: Manan Logan Primary Care Provider: Primary Care Divya Masterson Attending Provider: Jesusita Morrison Discharge Interventions Interventions: Vital Signs Last Done: 10/06/17 00:52 Status ED Status: Admitted Patient
[2017-10-06 01:18] LABS: Alanine Aminotransferase 63 U/L (12-78); Albumin 4.4 g/dL (3.4-5.0); Alkaline Phosphatase 164 U/L (45-117); Anion Gap 14 meq/L (5-15); Aspartate Aminotransferase 89 U/L (15-37); Blood Urea Nitrogen 5 mg/dL (7-18); Calcium 9.9 mg/dL (8.5-10.1); Carbon Dioxide 25.5 meq/L (21.0-32.0); Chloride 99 meq/L (98-107); Glomerular Filtration Rate Greater Than 89 mL/min (>89); Glucose,Random 123 mg/dL (74-106); Lipase 1948 U/L (73-393); Potassium 3.8 meq/L (3.5-5.1); Sodium 138 meq/L (136-145); Total Protein 8.2 g/dL (6.4-8.2)
[2017-10-06 01:37] LABS: Baso # (Auto) 0.1 th/mm3 (0.0-0.2); Baso % (Auto) 0.4 % (0.0-2.0); Eos % (Auto) 0.1 % (0.0-4.0); Hematocrit 52.3 % (39.0-51.0); Hemoglobin 18.3 gm/dL (13.0-17.0); Lymph # (Auto) 1.4 th/mm3 (1.0-4.8); Lymph % (Auto) 9.4 % (9.0-44.0); Mean Platelet Volume 9.4 fL (7.0-11.0); Mono # (Auto) 1.1 th/mm3 (0.0-0.9); Mono % (Auto) 7.6 % (0.0-8.0); Neut # (Auto) 12.2 th/mm3 (1.8-7.7); Neut % (Auto) 82.5 % (16.0-70.0); Platelet Count 189 th/mm3 (150-450); Red Blood Count 5.23 mil/mm3 (4.50-5.90); Red Cell Distribution Width 13.3 % (11.6-17.2); White Blood Count 14.8 th/mm3 (4.0-11.0)
[2017-10-06] MEDS ORDERED: Ketamine Inj 200 MG/20 ML Vial IV.PUSH STA (02:16)
[2017-10-06] MEDS ORDERED: Ketamine Inj 500 MG/10 ML Vial IV.PUSH STA (02:44)
[2017-10-06] MEDS ORDERED: Haloperidol Inj 5 MG/ML Ampul IV.PUSH PRN (04:17)
[2017-10-06] MEDS ORDERED: LORazepam 1 MG Tablet PO PRN (04:17)
[2017-10-06] MEDS ORDERED: Temazepam 15 MG Capsule PO PRN (04:18)
[2017-10-06] MEDS ORDERED: Bisacodyl 10 MG Supp RECTAL PRN (04:18)
[2017-10-06] MEDS: Sod Chloride 0.9% Inj 1,000 ML IV.CONT SCH ×2 (04:35→18:26)
--- NOTE | 2017-10-06 04:45 | P.HPIM ---
History of Present Illness Primary Care Physician: No Primary Care Physician History of Present Illness: This is a 37-year-old male with a PMH of Alcohol Abuse and h/o Recurrent Pancreatitis who presented to the ER w/ c/o severe epigastric pain. States he "was doing really well" and hadn't been drinking, until he was [place] where [place] had open bar. Has had abdominal pain since then, pain is severe, constant, 10/10, non-radiating, worse w/ movement. S/p multiple doses of pain meds in ER w/ minimal improvement. On arrival, BP 147/90 , HR 106, O2 sat 95% on RA, Afebrile. WBC 14.8. Chemistry essentially unremarkable. LFTs mildly elevated. Lipase 1948. - Diagnosis (1) Pancreatitis (2) Alcohol abuse (3) Leukocytosis Inpatient Certification: I certify that the inpatient services were ordered in accordance with Medicare regulations governing the order. This includes certification that hospital inpatient services are reasonable and necessary and in the case of services not specified as inpatient-only under 42 CFR 419.22(n), that they are appropriately provided as inpatient services in accordance to with the 2-midnight benchmark under 43 CFR 412.3(e) Estimated Total Length of Stay (Days): 2 Plans for Post Hospital Care: Home Review of Systems All other systems reviewed negative except as stated in HPI [facility] - History History Provided By: Patient - Medical History Medical History: Medical History (Last Reviewed 10/06/17 @ 01:17 by Manan Logan MD) AA (alcohol abuse) Acute pancreatitis - Tobacco History Second Hand Smoke Exposure: No Tobacco Use In Past 30 Days: No Smoking Status: Never smoker - Alcohol History How Often Do You Have a Drink Containing Alcohol: 2 to 3 times a week - Substance Use History Substance History: No History of Abuse - Travel History Recent Travel in the [place] Within the Last 8 Weeks: No Recent Travel Out of the Country Within the Last 8 Weeks: No - Immunization History Tetanus Immunization: Unsure Hx Influenza Vaccine This Season: No Medications and Allergies Active Medications: Active Medications Al Hydroxide/Mg Hydroxide (Milk Of Magnseth Liq) 30 ml PO Q12H PRN PRN Reason: Mild Constipation Bisacodyl (Dulcolax Supp) 10 mg RECTAL DAILY PRN PRN Reason: SEVERE CONSITIPATION Flumazenil (Romazecon Inj) 0.2 mg IV.PUSH Q1M PRN PRN Reason: OVERSEDATION Folic Acid (Folic Acid) 1 mg PO DAILY [facility] Stop: 10/11/17 08:59 Haloperidol Lactate (Haldol Inj) 1 mg IV.PUSH Q15M PRN PRN Reason: for severe agitation Sodium Chloride (Ns Inj) 1,000 mls @ 100 mls/hr IV.CONT .Q10H [place] Lactulose (Lactulose Liq) 30 ml PO DAILY PRN PRN Reason: SEVERE CONSITIPATION Lorazepam (Ativan) 1 mg PO Q4H PRN PRN Reason: for CIWA 8-10 Lorazepam (Ativan) 2 mg PO Q2H PRN PRN Reason: for CIWA 11-14 Lorazepam (Ativan Inj) 2 mg IV.PUSH Q2H PRN PRN Reason: for CIWA 11-14 Lorazepam (Ativan Inj) 2 mg IV.PUSH Q1H PRN PRN Reason: for CIWA 15-20 Lorazepam (Ativan Inj) 2 mg IV.PUSH Q15M PRN PRN Reason: for CIWA > 20 Lorazepam (Ativan Inj) 1 mg IV.PUSH Q4H PRN PRN Reason: for CIWA 8-10 Metoclopramide HCl (Reglan Inj) 5 mg IV.PUSH Q6HR PRN; Protocol PRN Reason: NAUSEA OR VOMITING Morphine Sulfate (Morphine Inj) 2 mg IV.PUSH Q4H PRN PRN Reason: PAIN 6-10 Multivitamins/Minerals (Theragran-M) 1 tab PO DAILY [facility] Stop: 10/11/17 08:59 Oxycodone HCl (Roxicodone) 5 mg PO Q4H PRN PRN Reason: PAIN 3-5 Pantoprazole Sodium (Protonix) 40 mg PO DAILY [facility] Senna/Docusate Sodium (Alina-Colace) 1 tab PO BID [facility] Sennosides (Senokot) 17.2 mg PO Q12H PRN PRN Reason: Moderate Constipation Sodium Chloride (Ns Flush) 2 ml IV.FLUSH PRN PRN PRN Reason: FLUSH AFTER USING IV ACCESS Temazepam (Restoril) 15 mg PO HS PRN PRN Reason: INSOMNIA Thiamine HCl (Vitamin B1) 100 mg PO DAILY [facility] Allergies Allergy/AdvReac Type Severity Reaction Status Date / Time penicillin G Allergy Unknown Restlessnes Verified 10/05/17 23:51 s Home Medications Medication Instructions Recorded Confirmed Type esomeprazole magnesium [Nexium] 40 mg PO DAILY 10/05/17 10/05/17 History Exam Vital signs: Vital Signs 10/05/17 20:33 10/05/17 23:52 10/06/17 00:52 Temperature 98.4 F Pulse Rate 65 68 106 H Respiratory Rate 18 18 18 Blood Pressure 141/86 H 174/100 H 147/90 H Pulse Oximetry 97 97 95 10/06/17 00:53 10/06/17 01:38 Temperature Pulse Rate Respiratory Rate 18 Blood Pressure Pulse Oximetry 95 Intake & Output 10/05/17 10/05/17 10/06/17 06:59 18:59 06:59 Intake Total 1000 / 1000 Balance 1000 / 1000 Weight 89 kg Intake: IV 1000 / 1000 NS Inj 1,000 ML @ Wide Open IV. 1000 / 1000 SIG BOLUS ONE Rx#:[id number] Narrative: PE: GENERAL: Young white male in mild distress due to pain. HEENT: PERRLA, EOMI. No scleral icterus or conjunctival pallor. No lid lag or facial droop. CARDIOVASCULAR: Regular rate and rhythm. No obvious murmurs to auscultation. No chest tenderness to palpation. RESPIRATORY: No obvious rhonchi or wheezing. Clear to auscultation. Breath sounds equal bilaterally. GASTROINTESTINAL: Abdomen soft, epigastric tenderness to palpation, nondistended. BS normal. MUSCULOSKELETAL: Extremities without clubbing, cyanosis, or edema. No obvious deformities. NEUROLOGICAL: Awake, alert and oriented x4. No focal neurologic deficits. Moving both upper and lower extremities spontaneously. Results - Labs CBC & Chem 7: 10/06/17 00:49 10/06/17 00:49 Labs: Short CBC 10/06/17 Range/Units 00:49 WBC 14.8 H (4.0-11.0) th/mm3 Hgb 18.3 H (13.0-17.0) gm/dL Hct 52.3 H (39.0-51.0) % Plt Count 189 (150-450) th/mm3 BMP 10/06/17 00:49 Sodium 138 Potassium 3.8 Chloride 99 Carbon Dioxide 25.5 BUN 5 L Creatinine 0.82 Calcium 9.9 Liver Function 07/13/18 Range/Units 00:49 Total Bilirubin 1.3 H (0.2-1.0) mg/dL AST 89 H (15-37) U/L ALT 63 (12-78) U/L Alkaline Phosphatase 164 H (45-117) U/L Albumin 4.4 (3.4-5.0) g/dL Caprini VTE Risk Assessment Caprini VTE Risk Assessment: No/Low Risk (score <= 1) Caprini Risk Assessment Model: Point Value = 1 Point Value = 2 Point Value = 3 Point Value = 5 Age 41-60 Minor surgery BMI > 25 kg/m2 Swollen legs Varicose veins or History of unexplained or recurrent spontaneous Oral contraceptives or hormone replacement Sepsis (< 1 month) Serious lung disease, including pneumonia (< 1 month) Abnormal pulmonary function Acute myocardial infarction Congestive heart failure (< 1 month) History of inflammatory bowel disease Medical patient at bed rest Age 61-74 Arthroscopic surgery Major open surgery (> 45 min) Laparoscopic surgery (> 45 min) Malignancy Confined to bed (> 72 hours) Immobilizing plaster cast Central venous access Age >= 75 History of VTE Family history of VTE Factor V Leiden Prothrombin [id number] Lupus anticoagulant Anticardiolipin antibodies Elevated serum homocysteine Heparin-induced thrombocytopenia Other congenital or acquired thrombophilia Stroke (< 1 month) Elective arthroplasty Hip, pelvis, or leg fracture Acute spinal cord injury (< 1 month) Prophylaxis Regimen: Total Risk Factor Score Risk Level Prophylaxis Regimen 0-1 Low Early ambulation 2 Moderate Order ONE of the following: *Sequential Compression Device (SCD) *Heparin 5000 units SQ BID 3-4 Higher Order ONE of the following medications: *Heparin 5000 units SQ TID *Enoxaparin/Lovenox 40 mg SQ daily (WT < 150 kg, CrCl > 30 mL/min) *Enoxaparin/Lovenox 30 mg SQ daily (WT < 150 kg, CrCl > 10-29 mL/min) *Enoxaparin/Lovenox 30 mg SQ BID (WT < 150 kg, CrCl > 30 mL/min) AND/OR *Sequential Compression Device (SCD) 5 or more Highest Order ONE of the following medications: *Heparin 5000 units SQ TID (Preferred with Epidurals) *Enoxaparin/Lovenox 40 mg SQ daily (WT < 150 kg, CrCl > 30 mL/min) *Enoxaparin/Lovenox 30 mg SQ daily (WT < 150 kg, CrCl > 10-29 mL/min) *Enoxaparin/Lovenox 30 mg SQ BID (WT < 150 kg, CrCl > 30 mL/min) AND *Sequential Compression Device (SCD) Assessment and Plan - Assessment (1) Pancreatitis Code(s): K85.90 - Acute pancreatitis without necrosis or infection, unspecified Status: Acute (2) Alcohol abuse Code(s): F10.10 - Alcohol abuse, uncomplicated Status: Acute (3) Leukocytosis Code(s): D72.829 - Elevated white blood cell count, unspecified Status: Acute - Plan A/P: 1. Pancreatitis: Recurrent. Secondary to alcohol abuse. Lipase 1948, c/o severe abdominal pain despite multiple doses of pain meds in ER. NPO, IVF, analgesics/antiemetics, repeat Lipase. 2. Alcohol Abuse: Pt counselled. CIWA, Seizure Precautions, MVT/Thiamine/ Folate replacement. 3. Leukocytosis: WBC 14.8, likely reactive, will monitor closely, repeat labs in am. 4. DVT Prophylaxis: SCD/Teds 5. Social work for d/c planning as needed 6. Case discussed w/ ER physician at length, labs/records/imaging reviewed by me.
[2017-10-06] MEDS: Morphine Inj 4 MG/ML Vial IV.PUSH PRN ×5 (07:03→23:49)
[2017-10-06] MEDS: Senna/Docusate Sodium 8.6/50 MG Tablet PO SCH ×2 (09:15→22:25)
[2017-10-06] MEDS: Multivitamin/Minerals Therapeutic Tablet PO SCH (09:15)
[2017-10-06] MEDS: Folic Acid 1 MG Tablet PO SCH (09:15)
--- NOTE | 2017-10-06 17:36 | ECG ---
Date Performed: 10/05/2017 Time Performed: 20:38:15 PTAGE: 37 years EKG: Sinus rhythm NORMAL ECG NO PREVIOUS TRACING DOCTOR: Miguel Angel Walter Interpretating Date/Time 10/06/2017 17:35:42
[2017-10-07] MEDS: Sod Chloride 0.9% Inj 1,000 ML IV.CONT SCH ×2 (02:28→11:49)
[2017-10-07] MEDS: Morphine Inj 4 MG/ML Vial IV.PUSH PRN ×2 (04:08→09:10)
[2017-10-07 07:29] LABS: Baso % (Auto) 0.6 % (0.0-2.0); Eos # (Auto) 0.1 th/mm3 (0.0-0.4); Eos % (Auto) 1.4 % (0.0-4.0); Hematocrit 49.3 % (39.0-51.0); Hemoglobin 16.8 gm/dL (13.0-17.0); Lymph # (Auto) 1.7 th/mm3 (1.0-4.8); Lymph % (Auto) 19.8 % (9.0-44.0); Mean Corpuscular HGB Conc 34.1 % (32.0-36.0); Mean Corpuscular Hemoglobin 35.1 pg (27.0-34.0); Mean Platelet Volume 9.3 fL (7.0-11.0); Mono # (Auto) 0.7 th/mm3 (0.0-0.9); Mono % (Auto) 8.3 % (0.0-8.0); Neut # (Auto) 5.8 th/mm3 (1.8-7.7); Neut % (Auto) 69.9 % (16.0-70.0); Platelet Count 152 th/mm3 (150-450); Red Blood Count 4.79 mil/mm3 (4.50-5.90); Red Cell Distribution Width 13.3 % (11.6-17.2); White Blood Count 8.4 th/mm3 (4.0-11.0)
[2017-10-07] MEDS: Folic Acid 1 MG Tablet PO SCH (08:00)
[2017-10-07] MEDS: Senna/Docusate Sodium 8.6/50 MG Tablet PO SCH ×2 (08:00→20:52)
[2017-10-07] MEDS: Multivitamin/Minerals Therapeutic Tablet PO SCH (08:00)
--- NOTE | 2017-10-07 08:06 | P.PNIM ---
Subjective Interval history: The patient says that he was feeling better. He wanted something to eat. He wanted to get Dilaudid instead of the morphine. He says he is done drinking but maybe when he is feeling better he will try drinking again in moderation. He has been passing gas. Discussed with nursing. Physical Exam Vital signs: Vital Signs 10/06/17 08:31 10/06/17 09:53 10/06/17 11:31 Temperature Pulse Rate 86 82 Respiratory Rate 19 20 19 Blood Pressure 149/86 H 154/96 H Pulse Oximetry 97 10/06/17 12:00 10/06/17 20:00 10/07/17 00:00 Temperature 99.7 F H 99.2 F 99.7 F H Pulse Rate 75 95 H 76 Respiratory Rate 18 16 16 Blood Pressure 149/94 H 137/72 155/90 H Pulse Oximetry 97 96 97 10/07/17 04:00 Temperature 99.7 F H Pulse Rate 93 H Respiratory Rate 16 Blood Pressure 149/98 H Pulse Oximetry 95 Intake & Output 10/06/17 10/07/17 10/07/17 18:59 06:59 18:59 Intake Total 1999 / 1999 1240 / 1240 Output Total 1050 / 1050 Balance 950 / 950 1240 / 1240 Weight 93.082 kg 93.4 kg Intake: IV 1999 / 1999 1000 / 1000 NS Inj 1,000 ML @ 100 mls/hr IV 1000 / 1000 1000 / 1000 .CONT .Q10H DAVIDSON Rx#:[id number] Oral 240 / 240 Output: Urine 1050 / 1050 Other: # Voids 3 Date of Last Bowel Movement 10/05/17 Weight On Admission 89 kg Narrative: GENERAL: Resting comfortably. HEENT: PERRLA, EOMI. No scleral icterus or conjunctival pallor. No lid lag or facial droop. CARDIOVASCULAR: Regular rate and rhythm. No murmur. RESPIRATORY: No rhonchi or wheezing. Clear to auscultation. Breath sounds equal bilaterally. GASTROINTESTINAL: Abdomen soft, epigastric tenderness to palpation, nondistended. BS normal. MUSCULOSKELETAL: Extremities without clubbing, cyanosis, or edema. No obvious deformities. NEUROLOGICAL: Awake, alert and oriented x4. No focal neurologic deficits. Moving both upper and lower extremities spontaneously. Results - Labs CBC & Chem 7: 10/07/17 06:38 10/07/17 06:38 Laboratory Results - last 24 hr 10/07/17 06:38 WBC 8.4 RBC 4.79 Hgb 16.8 Hct 49.3 MCV 103.0 H MCH 35.1 H MCHC 34.1 RDW 13.3 Plt Count 152 MPV 9.3 Neut % (Auto) 69.9 Lymph % (Auto) 19.8 [place] % (Auto) 8.3 H Eos % (Auto) 1.4 Baso % (Auto) 0.6 Neut # (Auto) 5.8 Lymph # (Auto) 1.7 [place] # (Auto) 0.7 Eos # (Auto) 0.1 Baso # (Auto) 0.0 WBC Differential . Differential Comment Auto diff final Assessment and Plan - Assessment (1) Pancreatitis Code(s): K85.90 - Acute pancreatitis without necrosis or infection, unspecified Status: Acute (2) Alcohol abuse Code(s): F10.10 - Alcohol abuse, uncomplicated Status: Acute (3) Leukocytosis Code(s): D72.829 - Elevated white blood cell count, unspecified Status: Acute - Plan Pancreatitis Recurrent. Secondary to alcohol abuse. Lipase 1948, c/o severe abdominal pain despite multiple doses of pain meds in ER. Feeling better. Lipase elevation has resolved. - start clears. Advance as tolerated. - IVFs. - analgesics/antiemetics. Wean off IV once diet is advanced. Alcohol Abuse Pt counselled. - [facility] protocol. - Seizure Precautions. - MVT/Thiamine/Folate replacement. Hypokalemia S/t above. - replete PO and monitor. Leukocytosis WBC 14.8, likely reactive. - resolved. DVT Prophylaxis: SCD/Teds
[2017-10-07 08:18] LABS: Alanine Aminotransferase 45 U/L (12-78); Albumin 3.5 g/dL (3.4-5.0); Alkaline Phosphatase 140 U/L (45-117); Anion Gap 15 meq/L (5-15); Aspartate Aminotransferase 71 U/L (15-37); Blood Urea Nitrogen 5 mg/dL (7-18); Calcium 9.3 mg/dL (8.5-10.1); Carbon Dioxide 21.7 meq/L (21.0-32.0); Chloride 100 meq/L (98-107); Glomerular Filtration Rate Greater Than 89 mL/min (>89); Glucose,Random 77 mg/dL (74-106); Lipase 210 U/L (73-393); Potassium 3.2 meq/L (3.5-5.1); Sodium 137 meq/L (136-145); Total Protein 7.5 g/dL (6.4-8.2)
[2017-10-07] MEDS: Potassium Chloride 25 MEQ Effervescent Tablet PO SCH ×2 (11:49→15:40)
[2017-10-08] MEDS ORDERED: Acetaminophen 325 MG Tablet PO ONE (00:07)
[2017-10-08] MEDS: Sod Chloride 0.9% Inj 1,000 ML IV.CONT SCH ×3 (00:24→22:11)
[2017-10-08 08:29] LABS: Anion Gap 11 meq/L (5-15); Blood Urea Nitrogen 5 mg/dL (7-18); Carbon Dioxide 26.1 meq/L (21.0-32.0); Chloride 105 meq/L (98-107); Glomerular Filtration Rate Greater Than 89 mL/min (>89); Glucose,Random 97 mg/dL (74-106); Potassium 3.3 meq/L (3.5-5.1); Sodium 142 meq/L (136-145)
[2017-10-08] MEDS ORDERED: Potassium Chloride 25 MEQ Effervescent Tablet PO SCH (09:00)
--- NOTE | 2017-10-08 09:09 | P.PNIM ---
Subjective Interval history: The patient said he had an episode yesterday where he had a fever and felt increased back pain on the right upper back. He said that he has been tolerating a diet in small amounts. He does still have abdominal pain. He has not had a bowel movement in a while. He requests Dilaudid. Physical Exam Vital signs: Vital Signs 10/07/17 10:14 10/07/17 12:00 10/07/17 12:34 Temperature 98.9 F Pulse Rate 113 H Respiratory Rate 18 20 18 Blood Pressure 130/67 Pulse Oximetry 94 L 10/07/17 16:00 10/07/17 19:46 10/07/17 21:22 Temperature 99.6 F 99.9 F H Pulse Rate 106 H 96 H Respiratory Rate 20 18 18 Blood Pressure 146/88 H 133/84 Pulse Oximetry 93 L 96 10/07/17 23:14 10/07/17 23:49 10/08/17 01:26 Temperature 100.3 F H 101.3 F H Pulse Rate 106 H Respiratory Rate 18 18 Blood Pressure 140/98 H Pulse Oximetry 97 10/08/17 03:00 10/08/17 06:12 10/08/17 08:00 Temperature 99.6 F 98.4 F Pulse Rate 90 74 Respiratory Rate 18 18 20 Blood Pressure 128/90 135/73 Pulse Oximetry 97 94 L Intake & Output 10/07/17 10/08/17 10/08/17 18:59 06:59 18:59 Intake Total 1999 1360 / 1360 Balance 1999 1360 / 1360 Weight 93 kg Intake: IV 1000 / 1000 1000 / 1000 NS Inj 1,000 ML @ 100 mls/hr IV 1000 / 1000 1000 / 1000 .CONT .Q10H DAVIDSON Rx#:[id number] Oral 1000 / 1000 360 / 360 Other: # Voids 8 3 Date of Last Bowel Movement 10/05/17 10/04/17 # Bowel Movements 0 Narrative: GENERAL: Resting comfortably. HEENT: PERRLA, EOMI. No scleral icterus or conjunctival pallor. No lid lag or facial droop. CARDIOVASCULAR: Regular rate and rhythm. No murmur. RESPIRATORY: No rhonchi or wheezing. Clear to auscultation. Breath sounds equal bilaterally. GASTROINTESTINAL: Abdomen soft, epigastric tenderness to palpation, nondistended. BS normal. MUSCULOSKELETAL: Some tenderness to palpation of right side of back. Extremities without clubbing, cyanosis, or edema. No obvious deformities. NEUROLOGICAL: Awake, alert and oriented x4. No focal neurologic deficits. Moving both upper and lower extremities spontaneously. Results - Labs CBC & Chem 7: 10/07/17 06:38 10/08/17 06:00 Laboratory Results - last 24 hr 10/08/17 06:00 Sodium 142 Potassium 3.3 L Chloride 105 Carbon Dioxide 26.1 Anion Gap 11 BUN 5 L Creatinine 0.76 Estimated GFR Greater than 89 Random Glucose 97 Calcium 9.0 Magnesium 2.0 Assessment and Plan - Assessment (1) Pancreatitis Code(s): K85.90 - Acute pancreatitis without necrosis or infection, unspecified Status: Acute (2) Alcohol abuse Code(s): F10.10 - Alcohol abuse, uncomplicated Status: Acute (3) Leukocytosis Code(s): D72.829 - Elevated white blood cell count, unspecified Status: Acute - Plan Pancreatitis/ Fever Recurrent. Secondary to alcohol abuse. Lipase 1948, c/o severe abdominal pain despite multiple doses of pain meds in ER. Feeling better. Lipase elevation has resolved. Still with abdominal and back pain. Had fever. - CT abodmen. - barba culture. - CXR. - full liquid diet. - IVFs. - analgesics/antiemetics as needed. Alcohol Abuse Pt counselled. - [facility] protocol. - Seizure Precautions. - MVT/Thiamine/Folate replacement. Hypokalemia S/t above. - replete IV and monitor. Leukocytosis WBC 14.8, likely reactive. - resolved. DVT Prophylaxis: SCD/Teds Discharge Planning: Await improvement, fever work-up
[2017-10-08] MEDS: Folic Acid 1 MG Tablet PO SCH (09:19)
[2017-10-08] MEDS: Senna/Docusate Sodium 8.6/50 MG Tablet PO SCH ×2 (09:19→20:06)
[2017-10-08 09:33] LABS: Total Protein 6.9 g/dL (6.4-8.2)
[2017-10-08 09:36] LABS: Albumin 3.2 g/dL (3.4-5.0)
[2017-10-08] MEDS: Multivitamin/Minerals Therapeutic Tablet PO SCH (10:22)
[2017-10-08] MEDS: Potassium Chlor 20 mEq Premix 20 MEQ/100 ML PIGGYBACK IV.SIG SCH ×2 (10:23→11:31)
--- NOTE | 2017-10-08 10:32 | XR ---
EXAM DATE: 10/08/2017 10:11 AM EDT AGE/SEX: 37 years / Male INDICATIONS: Pneumonia. CLINICAL DATA: This is the patient's subsequent encounter. Patient reports that signs and symptoms h ave been present for 1 day and indicates a pain score of 0/10. MEDICAL/SURGICAL HISTORY: . Pancreatitis. Seizures. Head trauma. Liver disease . Tonsillectomy . Tympanostomy tube. [place] [facility] [place]AST, 09/02/2017. [facility] [place]ING[place] AP, 09/02/[place]. . FINDINGS: AP upright portable view of the chest demonstrates airspace consolidation involving the left lower lo be. The remainder the lungs are clear. Heart size is normal. CONCLUSION: Left lower lobe airspace consolidation Electronically signed by: Daniella Vega MD 10/08/2017 10:31 AM EDT
[2017-10-08] MEDS: Morphine Inj 4 MG/ML Vial IV.PUSH PRN ×3 (11:32→20:07)
[2017-10-08 13:26] LABS: Bilirubin,Urine Negative (Negative); Clarity,Urine Clear (Clear); Color,Urine Amber (Yellw/Straw); Glucose,Urine (UA) Negative (Negative); Leukocyte Esterase,Urine Negative (Negative); Nitrite,Urine Negative (Negative); Specific Gravity,Urine 1.016 (1.002-1.035); Urobilinogen,Urine 4 or Greater mg/dL (Less than 2)
--- NOTE | 2017-10-08 18:16 | CT ---
EXAM DATE: 10/08/2017 6:04 PM EDT AGE/SEX: 37 years / Male INDICATIONS: Upper abdomen pain for one week. CLINICAL DATA: This is the patient's initial encounter. Patient reports that signs and symptoms have been present for 1 week and indicates a pain score of 7/10. MEDICAL/SURGICAL HISTORY: Pancreatitis. None. ORAL CONTRAST: No oral contrast ingested. RADIATION DOSE: 15.25 CTDI (mGy) COMPAR[place]: [facility] [place]EL[place]AST, 09/02/2017. . TECHNIQUE: Multiple contiguous axial images were obtained through the abdomen and pelvis following b olus infusion of 85 ml Omnipaque 350 (iohexol) nonionic water-soluble contrast as a single exam dos e. No oral contrast ingested. Using automated exposure control and adjustment of the mA and/or kV ac cording to patient size, radiation dose was kept as low as reasonably achievable to obtain optimal di agnostic quality images. DICOM format image data is available electronically for review and comparis on. FINDINGS: Lower Lungs: There is minimal increased density at the lower lungs bilaterally. Liver: There is diffuse decreased attenuation to the liver. No focal hepatic lesions are seen. The ga llbladder is unremarkable. Spleen: Homogeneous density without enlargement. Pancreas: There is minimal induration seen around the pancreatic head. The pancreas itself appears n ormal. Kidneys: Normal in size and shape. No evidence of mass or hydronephrosis. Adrenal Glands: Unremarkable. Aorta: The aorta and proximal iliac vessels are grossly unremarkable without aneurysmal dilation. Bowel/Mesentery: The bowel loops are grossly unremarkable. The cecum and sigmoid colon have a normal configuration. Abdominal Wall: Intact. Retroperitoneum: No evidence of adenopathy in the retrocrural, para-aortic, or deep pelvic regions. Bladder: Contours are smooth. Reproductive Organs: No abnormal masses or calcifications seen. Inguinal: The inguinal region is unremarkable without evidence of adenopathy. Bony Structures: Unremarkable. CONCLUSION: 1. Minimal induration around the pancreatic head which could suggest pancreatitis. 2. Hepatic steatosis. 3. Suspected atelectasis or minimal consolidation at the lung bases. Electronically signed by: Ramo Lancaster MD 10/08/2017 6:15 PM EDT
[2017-10-09] MEDS: Sod Chloride 0.9% Inj 1,000 ML IV.CONT SCH ×2 (00:24→04:32)
[2017-10-09] MEDS: Morphine Inj 4 MG/ML Vial IV.PUSH PRN ×2 (00:24→04:32)
[2017-10-09] MEDS: Folic Acid 1 MG Tablet PO SCH (09:08)
[2017-10-09] MEDS: Senna/Docusate Sodium 8.6/50 MG Tablet PO SCH (09:08)
[2017-10-09] MEDS: Multivitamin/Minerals Therapeutic Tablet PO SCH (09:08)
--- NOTE | 2017-10-09 10:08 | P.DS ---
Date of admission: 10/06/17 04:13 Primary care physician: No Primary Care Physician Anticipated date of discharge: 10/09/17 Brief History from admission: This is a 37-year-old male with a PMH of Alcohol Abuse and h/o Recurrent Pancreatitis who presented to the ER w/ c/o severe epigastric pain. States he "was doing really well" and hadn't been drinking, until he was given [place] where they had open bar. Has had abdominal pain since then, pain is severe, constant, 10/10, non-radiating, worse w/ movement. S/p multiple doses of pain meds in ER w/ minimal improvement. On arrival, BP 147/90 , HR 106, O2 sat 95% on RA, Afebrile. WBC 14.8. Chemistry essentially unremarkable. LFTs mildly elevated. Lipase 1948. DS: Diagnosis - Discharge Diagnosis (1) Pancreatitis Status: Acute (2) Alcohol abuse Status: Acute (3) Leukocytosis Status: Acute (4) Pneumonia Status: Acute DS: Medications - Discharge Medications Prescriptions: levofloxacin 750 mg PO DAILY #5 tab oxycodone 5 mg PO Q6H PRN 3 Days tab PRN Reason: Pain potassium chloride 20 meq PO BID #14 tab DS: Summary Hospital Course: Pancreatitis Recurrent. Secondary to alcohol abuse. Lipase 1948 on admission. He was made NPO and started on IVFs. He received analgesics/antiemetics as needed. CT abdomen showed: Minimal induration around the pancreatic head which could suggest pancreatitis; Hepatic steatosis; Suspected atelectasis or minimal consolidation at the lung bases. Lipase elevation has resolved. His diet was slowly advanced. He will follow up with his PCP. He received alcohol cessation instruction. Alcohol Abuse Pt counselled. He was placed on CIWA protocol and seizure precautions. He received MVT/Thiamine/Folate replacement. PNA The pt spiked a fever. CXR indicative of left lower lobe airspace consolidation. He was started on IV Levaquin. He was barba-cultured. He will complete a course of PO Levaquin and will follow up with his PCP. Hypokalemia Seems chronic. We replete IV and PO. He will be discharged on KCl supplementation and will follow up with his PCP. Constipation The pt's diet was slowly advance. He received a bowel regimen and his constipation resolved. - Time Spent with Patient Total time spent providing and/or coordinating discharge services: Greater than 30 minutes - Quality: VTE Deep Vein Thrombosis/Pulmonary Embolism Present on Admission: No Exam Vital signs: Vital Signs 10/08/17 12:00 10/08/17 19:23 10/08/17 20:09 Temperature 98.6 F Pulse Rate 100 H Respiratory Rate 20 18 18 Blood Pressure 136/77 Pulse Oximetry 95 10/08/17 20:30 10/08/17 23:15 10/08/17 23:22 Temperature 98.5 F 99.4 F Pulse Rate 95 H 87 Respiratory Rate 17 18 16 Blood Pressure 124/74 126/83 Pulse Oximetry 98 97 10/09/17 00:26 10/09/17 03:04 10/09/17 03:38 Temperature 99.0 F Pulse Rate 82 Respiratory Rate 18 18 18 Blood Pressure 137/82 Pulse Oximetry 97 10/09/17 04:34 10/09/17 05:22 10/09/17 08:00 Temperature 98.8 F Pulse Rate 84 Respiratory Rate 18 18 16 Blood Pressure 118/67 Pulse Oximetry 95 Intake & Output 10/08/17 10/09/17 10/09/17 18:59 06:59 18:59 Intake Total 1740 / 1740 1480 / 1480 Balance 1740 / 1740 1480 / 1480 Weight 93 kg Intake: IV 1200 / 1200 1000 / 1000 NS Inj 1,000 ML @ 100 mls/hr IV 1000 / 1000 1000 / 1000 .CONT .Q10H [facility] Rx#:[id number] KCl 20 mEq Premix Inj 20 meq In 200 / 200 100 ml @ 50 mls/hr IV.SIG Q2H [facility] Rx#:[id number] Oral 540 / 540 480 / 480 Other: # Voids 2 3 Date of Last Bowel Movement 10/04/17 10/04/17 # Bowel Movements 0 Narrative: GENERAL: Resting comfortably. HEENT: PERRLA, EOMI. No scleral icterus or conjunctival pallor. No lid lag or facial droop. CARDIOVASCULAR: Regular rate and rhythm. No murmur. RESPIRATORY: No rhonchi or wheezing. Clear to auscultation. Breath sounds equal bilaterally. GASTROINTESTINAL: Abdomen soft, epigastric tenderness to palpation, nondistended. BS normal. MUSCULOSKELETAL: Some tenderness to palpation of right side of back. Extremities without clubbing, cyanosis, or edema. No obvious deformities. NEUROLOGICAL: Awake, alert and oriented x4. No focal neurologic deficits. Moving both upper and lower extremities spontaneously. Results Procedures completed during hospitalization: None Labs on day of discharge: Labs from last 24 hours 10/08/17 13:00 Urine Color Zoe Urine Clarity Clear Urine pH 6.0 Ur Specific [place] 1.016 Urine Protein Negative Urine Glucose (UA) Negative Urine Ketones Negative Urine Occult Blood Negative Urine Nitrate Negative Urine Bilirubin Negative Urine Urobilinogen 4 or greater Ur Leukocyte Esterase Negative Urine RBC Less than 1 Urine WBC 1 Micro UA Comment Culture not ind Urine Culture Comments Culture not ind - Impressions ITS Impressions Abdomen/Pelvis CT 10/08/17 00:00 CONCLUSION: 1. Minimal induration around the pancreatic head which could suggest pancreatitis. 2. Hepatic steatosis. 3. Suspected atelectasis or minimal consolidation at the lung bases. Chest X-Ray 10/08/17 09:04 CONCLUSION: Left lower lobe airspace consolidation Discharge Plan - Discharge Disposition Patient Disposition: 01 Discharge Home - Discharge Condition Condition: Stable - Discharge Order Discharge Orders: Discharge Order (Routine); Ordered 10/09/17 Ordered By: Greg Barr - Discharge Details Anticipated Discharge Date: 10/09/17 - Physicians Team Primary Care Provider: Primary Care Zelalem,Divya Attending Provider: Greg Barr
[2017-10-09 10:52] LABS: Hematocrit 42.8 % (39.0-51.0); Hemoglobin 14.8 gm/dL (13.0-17.0); Mean Corpuscular HGB Conc 34.5 % (32.0-36.0); Mean Corpuscular Hemoglobin 35.7 pg (27.0-34.0); Mean Corpuscular Volume 103.6 fL (80.0-100.0); Platelet Count 186 th/mm3 (150-450); Red Blood Count 4.13 mil/mm3 (4.50-5.90); Red Cell Distribution Width 13.3 % (11.6-17.2); White Blood Count 6.3 th/mm3 (4.0-11.0)
[2017-10-09 11:04] LABS: Anion Gap 9 meq/L (5-15)
[2017-10-09 11:15] LABS: Alanine Aminotransferase 57 U/L (12-78); Albumin 3.2 g/dL (3.4-5.0); Alkaline Phosphatase 139 U/L (45-117); Aspartate Aminotransferase 72 U/L (15-37); Blood Urea Nitrogen 4 mg/dL (7-18); Calcium 8.8 mg/dL (8.5-10.1); Carbon Dioxide 28.9 meq/L (21.0-32.0); Chloride 104 meq/L (98-107); Glomerular Filtration Rate Greater Than 89 mL/min (>89); Glucose,Random 66 mg/dL (74-106); Lipase 385 U/L (73-393); Sodium 142 meq/L (136-145); Total Protein 6.9 g/dL (6.4-8.2)
[2017-10-09 11:18] LABS: Potassium 2.7 meq/L (3.5-5.1)
[2017-10-09] MEDS ORDERED: levoFLOXacin 750 MG Tablet PO SCH (18:00)
== END 2017-10-09 11:19 | disposition home or self-care (01) ==
LOC: NEPC 18:15 → NEDA 10-06 04:13 → NEDH 10-06 08:12 → N06 10-06 13:35
PROVIDERS: ADMIT Hospitalist; ATTEND Hospitalist